=== PATIENT | female | born 1950 | race Caucasian/White ===

== ENCOUNTER → 2017-02-05 | Outpatient (CLI) | payer BC ==
[~2017-02-05] MED LIST: Iopamidol 755 MG/ML 500 ML Multipack Bottle IVPUSH STA
--- NOTE | 2017-02-06 08:43 | CT ---
EXAMINATION: CT chest, abdomen, and pelvis with contrast HISTORY: Malignant neoplasm COMPARISON: 11/22/2016, 04/16/2016 TECHNIQUE: Axial CT images obtained through the chest, abdomen, and pelvis following the administrat ion of 100 mL of Isovue-370 in the right antecubital fossa. FINDINGS: Chest: There is likely a 1 cm nodule within the left thyroid lobe, grossly unchanged. There is a shari cified granuloma within the right apex. There are small subtle reticular to groundglass nodules with in the left upper lobe. There is a new tiny nodule area likely scarring within the left lingula thomas suring 5 x 1 cm. There is a tubular shaped nodule also noted within the left lingula, grossly unchan ged at 1.6 x 3.7 cm. No pleural effusion or pneumothorax. There is a left-sided andrea catheter noted . The heart is normal in size without a pericardial effusion. The thoracic aorta is normal in calibe r. There are at least 2 segmental pulmonary artery noted within the right lower lobe. Abdomen: Tiny hepatic hypodensities are noted. There is a cyst within the spleen. There is also a ri ng-enhancing 1.5 cm area within the spleen possibly heterogeneity and enhancement and appears presen t in the prior CTs. A 2.2 x 1.7 cm right adrenal nodule, stable. There is no bulky retroperitoneal l ymphadenopathy. No abdominal ascites. The kidneys enhance and function symmetrically without evidenc e of obstructive uropathy. The gallbladder and pancreas appear normal. Pelvis: The large and small bowel are normal in caliber without evidence of obstruction. No pericolo pee inflammation or stranding. The appendix appears normal. No bulky pelvic lymphadenopathy or free pelvic fluid. The urinary bladder appears normal. Uterus and ovaries are unremarkable. No suspicious osseous abnormalities identified. IMPRESSION: 1. Stable 1.6 x 3.7 cm nodule within the left upper lobe. 2. Tiny reticular nodules within the left apex, grossly unchanged to slightly less prominent. 3. New 6 x 11 mm nodular area within the left lingula with increased adjacent atelectasis, likely po stradiation changes. 4. Stable right adrenal nodule. 5. No mediastinal or hilar lymphadenopathy. 6. 2 small segmental pulmonary emboli within the right lower lobe.
== END ==
LOC: MW.DI 10:58
PROVIDERS: ATTEND Internal Medicine Hematology & Oncology
DX: C34.92 Malignant neoplasm of unspecified part of left bronchus or lung (principal); R91.8 Other nonspecific abnormal finding of lung field; E27.8 Other specified disorders of adrenal gland; R59.1 Generalized enlarged lymph nodes
CPT/HCPCS: 71260; 74177; Q9967

== ENCOUNTER 2017-04-04 13:12 | Inpatient (IN) | payer BC ==
[2017-04-04] MEDS ORDERED: Sodium Chloride 0.9% 1,000 ML IV SCH (13:30)
[2017-04-04] MEDS ORDERED: Sodium Chloride 0.9% 1,000 ML IV ONE (13:38)
[2017-04-04] MEDS: Pantoprazole 40 MG in Sodium Chloride 0.9% 10 ML IVPUSH SCH (14:33)
--- NOTE | 2017-04-04 15:51 | PCM.HP ---
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 She had blood work drawn yesterday in preparation for today's infusion. BUN/Cr were noted to be elevated 83 and 6.0. She was directly admitted. She reports she has been feeling overall ok the last few days. Her last chemotherapy was 2 weeks ago. She was transitioned to Xarelto from Lovenox beginning of February for PE/DVTs. She has not noticed any black or bloody bowel movements, no hematemesis or coffee ground emesis. She denies chest pain, SOB or palpitations, no fevers at home. She may not be eating or drinking as much as usual, but has been urinating normally. Urine is not bloody and is usually clear in color, not dark. She and family feels she has been at her baseline health recently Todays lab reveals WBC 8.40 hgb 9.9, Hct 31, BUN 79 and Cr 5.9 FeNA 3.43. UA reveals few bacteria, 15-20 WBC, moderate leukocyte esterase. - Related Data Allergies/Adverse Reactions: Allergies Allergy/AdvReac Type Severity Reaction Status Date / Time No Known Allergies Allergy Verified 04/07/16 18:15 Home Medications: Home Meds LORazepam 0.5 mg PO Q6HR PRN 02/01/16 [History] Carvedilol [Carvedilol] 6.25 mg PO BID 10/08/16 [History] Albuterol Sulfate [Proair Respiclick] 2 inh IH Q6H PRN 04/04/17 [History] Benzonatate [Benzonatate] 200 mg PO TID PRN 04/04/17 [History] Levothyroxine Sodium [Levothyroxine Sodium] 75 mcg PO ACBREAKFAST 04/04/17 [ History] Magnesium Oxide 800 mg PO TID 04/04/17 [History] Nivolumab [Opdivo] 240 mg IV Q14D 04/04/17 [History] Omeprazole 20 mg PO ACBREAKFAST 04/04/17 [History] Rivaroxaban [Xarelto] 20 mg PO DAILY@1900 04/04/17 [History] Past Medical History HEENT History: Reports: Impaired Vision Other HEENT History: wears glasses sometimes Cardiovascular History: Reports: Hypertension Other Cardiovascular History: not currently taking medication Respiratory History: Reports: Other (See Below) Other Respiratory History: 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 Gastrointestinal History: Reports: GERD. 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: 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 History: Reports: Fracture Other 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 History: currently has fx left ankle, casted has left side weakness Neurological History: Reports: Vertigo, Other (See Below) Other Neuro History: dizziness Psychiatric History: Reports: None Endocrine/Metabolic History: Reports: Hypothyroidism Hematologic History: Reports: None Other Hematologic History: son states her blood has been slow to clot recently Immunologic History: Reports: None Oncologic (Cancer) History: Reports: Lung Other Oncologic History: lung cancer is metastisized to brain Dermatologic History: Reports: None - Infectious Disease History Infectious Disease History: Reports: Chicken Pox, Shingles - Past Surgical History Head Surgeries/Procedures: Reports: None Oncologic Surgical History: Reports: Other (See Below) Social & Family History - Family History Family Medical History: Noncontributory - Tobacco Use Smoking Status *Q: Current Some Day Smoker Years of Tobacco use: 40 Packs/Tins Daily: 0.2 Used Tobacco, but Quit: Yes Second Hand Smoke Exposure: No - Caffeine Use Caffeine Use: Reports: Coffee - Recreational Drug Use Recreational Drug Use: No - Living Situation & Occupation Living situation: Reports: , with Family H&P Review of Systems - Review of Systems: Review Of Systems: See Below General: Reports: No Symptoms. Denies: Fever, Chills, Malaise, Fatigue HEENT: Reports: No Symptoms. Denies: Headaches, Sinus Congestion, Sore Throat Pulmonary: Reports: Cough (baseline). Denies: Shortness of Breath Cardiovascular: Reports: No Symptoms. Denies: Chest Pain, Palpitations, Edema, Lightheadedness Gastrointestinal: Reports: Nausea (intermittently), Vomiting. Denies: Abdominal Pain, Black Stool, Bloody Stool, Hematemesis Genitourinary: Reports: No Symptoms. Denies: Dysuria, Frequency, Burning, Incontinence, Hematuria Skin: Reports: No Symptoms Neurological: Reports: No Symptoms Hematologic/Lymphatic: Reports: No Symptoms Immunologic: Reports: No Symptoms Exam - Exam Exam: See Below - Vital Signs Vital Signs: Last Vital Signs Temp 97.4 F 04/04/17 13:26 Pulse 62 04/04/17 13:26 Resp 18 04/04/17 13:26 BP 110/62 04/04/17 13:26 Pulse Ox 92 L 04/04/17 13:26 Weight: 70.5 kg - Exam General: Alert, Oriented, Cooperative HEENT: Conjunctiva Clear, Mucosa Moist & [place], Posterior Pharynx Clear Neck: Supple, Trachea Midline, Full Range of Motion. No: Lymphadenopathy Lungs: Clear to Auscultation, Normal Respiratory Effort Cardiovascular: Regular Rate, Regular Rhythm, Normal S1, Normal S2. No: Irregular Rhythm, Tachycardia, Systolic Murmur Abdomen: Normal Bowel Sounds, Soft. No: Distention, Guarding, Rigidity, Tenderness Back Exam: Normal Inspection Extremities: Normal Inspection, Normal Pulses. No: Calf Tenderness, Edema Neurological: Cranial Nerves Intact Neuro Extensive - Mental Status: Alert, Oriented x3, Normal Mood/Affect, Normal Cognition Neuro Extensive - Motor, Sensory, Reflexes: CN II-XII Intact Psychiatric: Alert, Normal Affect, Normal Mood - Patient Data Lab Results Last 24 hrs: Laboratory Results - last 24 hr 04/04/17 04/04/17 04/04/17 Range/Units 14:10 14:10 14:20 WBC (4.0-11.0) K/uL RBC (4.30-5.90) M/uL Hgb (12.0-16.0) g/dL Hct (36.0-46.0) % MCV (80.0-98.0) fL MCH (27.0-32.0) pg MCHC (31.0-37.0) g/dL RDW Std Deviation (28.0-62.0) fl RDW Coeff of Caleb (11.0-15.0) % Plt Count (150-400) K/uL MPV (7.40-12.00) fL Add Manual Diff Neutrophils % (Manual) (48.0-80.0) % Band Neutrophils % % Lymphocytes % (Manual) (16.0-40.0) % Monocytes % (Manual) (0.0-15.0) % Eosinophils % (Manual) (0.0-7.0) % Basophils % (Manual) (0.0-1.5) % Nucleated RBC % /100WBC Absolute Seg Neuts Band Neutrophils # Lymphocytes # (Manual) Monocytes # (Manual) Eosinophils # (Manual) Basophils # (Manual) Nucleated RBCs # K/uL APTT (18.6-31.3) SEC Sodium 140 (136-146) mmol/L Potassium 4.4 (3.5-5.1) mmol/L Chloride 106 (98-110) mmol/L Carbon Dioxide 24 (21-31) mmol/L BUN 79 H (6.0-23.0) mg/dL Creatinine 5.9 H (0.6-1.5) mg/dL Est Cr Clr Drug Dosing 8.38 mL/min Estimated GFR (MDRD) 7.2 ml/min Glucose 98 (60-110) mg/dL Calcium 9.3 (8.8-10.8) mg/dL Urine Color YELLOW Urine Appearance HAZY Urine pH 6.5 (5.0-8.0) Ur Specific Wittmann 1.010 (1.001-1.035) Urine Protein NEGATIVE (NEGATIVE) mg/dL Urine Glucose (UA) NEGATIVE (NEGATIVE) mg/dL Urine Ketones NEGATIVE (NEGATIVE) mg/dL Urine Occult Blood MODERATE (NEGATIVE) Urine Nitrite NEGATIVE (NEGATIVE) Urine Bilirubin NEGATIVE (NEGATIVE) Urine Urobilinogen 0.2 (<2.0) EU/dL Ur Leukocyte Esterase MODERATE (NEGATIVE) Ur Random Creatinine 74.9 mg/dL Ur Random Sodium 61.0 mmol/L 04/04/17 04/04/17 Range/Units 14:20 14:20 WBC 8.40 (4.0-11.0) K/uL RBC 3.43 L (4.30-5.90) M/uL Hgb 9.9 L (12.0-16.0) g/dL Hct 31.5 L (36.0-46.0) % MCV 91.8 (80.0-98.0) fL MCH 28.9 (27.0-32.0) pg MCHC 31.4 (31.0-37.0) g/dL RDW Std Deviation 48.2 (28.0-62.0) fl RDW Coeff of Caleb 14 (11.0-15.0) % Plt Count 382 (150-400) K/uL MPV 8.70 (7.40-12.00) fL Add Manual Diff YES Neutrophils % (Manual) 72 (48.0-80.0) % Band Neutrophils % 3 % Lymphocytes % (Manual) 16 (16.0-40.0) % Monocytes % (Manual) 2 (0.0-15.0) % Eosinophils % (Manual) 6 (0.0-7.0) % Basophils % (Manual) 1 (0.0-1.5) % Nucleated RBC % 0.0 /100WBC Absolute Seg Neuts 6.0 Band Neutrophils # 0.3 Lymphocytes # (Manual) 1.3 Monocytes # (Manual) 0.2 Eosinophils # (Manual) 0.5 Basophils # (Manual) 0 Nucleated RBCs # 0 K/uL APTT 48.1 H (18.6-31.3) SEC Sodium (136-146) mmol/L Potassium (3.5-5.1) mmol/L Chloride (98-110) mmol/L Carbon Dioxide (21-31) mmol/L BUN (6.0-23.0) mg/dL Creatinine (0.6-1.5) mg/dL Est Cr Clr Drug Dosing mL/min Estimated GFR (MDRD) ml/min Glucose (60-110) mg/dL Calcium (8.8-10.8) mg/dL Urine Color Urine Appearance Urine pH (5.0-8.0) Ur Specific [place] (1.001-1.035) Urine Protein (NEGATIVE) mg/dL Urine Glucose (UA) (NEGATIVE) mg/dL Urine Ketones (NEGATIVE) mg/dL Urine Occult Blood (NEGATIVE) Urine Nitrite (NEGATIVE) Urine Bilirubin (NEGATIVE) Urine Urobilinogen (<2.0) EU/dL Ur Leukocyte Esterase (NEGATIVE) Ur Random Creatinine mg/dL Ur Random Sodium mmol/L Result Diagrams: 04/04/17 14:20 04/04/17 14:20 *Q Meaningful Use (ADM) - VTE *Q VTE Criteria *Q: - VTE Risk Assess *Q Each Risk Factor Represents 1 Point: None Total Score 1 Point Risk Factors: 0 Each Risk Factor Represents 2 Points: None Total Score 2 Point Risk Factors: 0 Each Risk Factor Represents 3 Points: History Superficial Venous Thrombosis, DVT or PE, Present Cancer or Chemotherapy Total Score 3 Point Risk Factors: 6 Each Risk Factor Represents 5 Points: None Total Score 5 Point Risk Factors: 0 Venous Thromboembolism Risk Factor Score *Q: 6 - Stroke *Q Stroke Criteria *Q: - AMI *Q AMI Criteria *Q: - Problem List (1) Acute renal injury SNOMED Code(s): 50321005 ICD Code: N17.9 - ACUTE KIDNEY FAILURE, UNSPECIFIED Status: Acute Current Visit: Yes (2) UTI (urinary tract infection) SNOMED Code(s): 73438326 ICD Code: N39.0 - URINARY TRACT INFECTION, SITE NOT SPECIFIED Status: Acute Current Visit: Yes Qualifiers: Urinary tract infection type: acute cystitis Hematuria presence: with hematuria Qualified Code(s): N30.01 - Acute cystitis with hematuria (3) Small cell lung cancer SNOMED Code(s): 264722158 ICD Code: C34.90 - MALIGNANT NEOPLASM OF UNSP PART OF UNSP BRONCHUS OR LUNG Status: Chronic Current Visit: Yes Qualifiers: Laterality: unspecified laterality Qualified Code(s): C34.90 - Malignant neoplasm of unspecified part of unspecified bronchus or lung (4) Hx pulmonary embolism SNOMED Code(s): 326825951 ICD Code: Z86.711 - PERSONAL HISTORY OF PULMONARY EMBOLISM Status: Chronic Current Visit: Yes (5) Hx of deep venous thrombosis SNOMED Code(s): 822581723 ICD Code: Z86.718 - PERSONAL HISTORY OF OTHER VENOUS THROMBOSIS AND EMBOLISM Status: Chronic Current Visit: Yes Problem List Initiated/Reviewed/Updated: Yes Orders Last 24hrs: Active Orders 24 hr Category Date Time Status Patient Status [ADT] Routine ADT 04/04/17 13:26 Active Cardiac Monitoring [RC] Q8H Care 04/04/17 13:26 Active Insert Urinary Catheter [OM.PC] Q24H Care 04/04/17 13:30 Ordered Intake and Output Strict [RC] Q12H Care 04/04/17 13:26 Active Oxygen Therapy [RC] PRN Care 04/04/17 13:26 Active Telemetry Monitoring [Cardiac Monitoring] [RC] . Care 04/04/17 15:10 Active DIRECTED Up With Assistance [RC] ASDIRECTED Care 04/04/17 13:26 Active Urinary Catheter Assessment [RC] ASDIRECTED Care 04/04/17 13:33 Active VTE/DVT Education [RC] PER UNIT ROUTINE Care 04/04/17 13:26 Active Vital Signs [RC] Q4H Care 04/04/17 13:26 Active Regular Diet [DIET] Diet 04/04/17 Dinner Active Retroperitoneal Comp [US] Routine Exams 04/04/17 13:26 Ordered BMP [BASIC METABOLIC PANEL,BMP] [CHEM] DAILY Lab 04/05/17 05:00 Ordered BMP [BASIC METABOLIC PANEL,BMP] [CHEM] DAILY Lab 04/06/17 05:00 Ordered BMP [BASIC METABOLIC PANEL,BMP] [CHEM] DAILY Lab 04/07/17 05:00 Ordered CBC WITH AUTO DIFF [HEME] DAILY Lab 04/05/17 05:00 Ordered CBC WITH AUTO DIFF [HEME] DAILY Lab 04/06/17 05:00 Ordered CBC WITH AUTO DIFF [HEME] DAILY Lab 04/07/17 05:00 Ordered PTT,PARTIAL THROMBOPLSTIN TIME [COAG] Q6H Lab 04/05/17 01:00 Ordered PTT,PARTIAL THROMBOPLSTIN TIME [COAG] Q6H Lab 04/05/17 07:00 Ordered PTT,PARTIAL THROMBOPLSTIN TIME [COAG] Q6H Lab 04/05/17 13:00 Ordered PTT,PARTIAL THROMBOPLSTIN TIME [COAG] Q6H Lab 04/05/17 19:00 Ordered PTT,PARTIAL THROMBOPLSTIN TIME [COAG] Q6H Lab 04/06/17 01:00 Ordered PTT,PARTIAL THROMBOPLSTIN TIME [COAG] Q6H Lab 04/06/17 07:00 Ordered UA W/MICROSCOPIC [URIN] Routine Lab 04/04/17 14:10 Results Heparin Sod,Pork In 0.45% Nacl [Heparin-1/2Ns 25,000 Med 04/04/17 19:00 Active Units/500] 25,000 unit in 500 ml IV TITRATE Heparin Sodium Med 04/05/17 01:00 Active 0 units IVPUSH Q6H PRN Pantoprazole [ProTONIX IV] 40 mg Med 04/04/17 13:30 Active Sodium Chloride 0.9% [Normal Saline] 10 ml IVPUSH DAILY Sodium Chloride 0.9% [Normal Saline] 1,000 ml Med 04/04/17 13:30 Active IV .BOLUS Sodium Chloride 0.9% [Normal Saline] 1,000 ml Med 04/04/17 15:45 Ordered IV ASDIRECTED Resuscitation Status Routine Resus Stat 04/04/17 15:10 Ordered Medication Orders Heparin Sodium (Porcine) (Heparin Sodium) 0 units IVPUSH Q6H PRN PRN Reason: APPT RESULTS Pantoprazole Sodium 40 mg/ (Sodium Chloride) 10 mls @ 300 mls/hr IVPUSH DAILY MARTINEZ Last Admin: 04/04/17 14:33 Dose: 300 mls/hr Sodium Chloride (Normal Saline) 1,000 mls @ 999 mls/hr IV .BOLUS MARTINEZ Heparin Sod,Pork In 0.45% Nacl (Heparin-1/2ns 25,000 Units/500) 25,000 unit in 500 mls @ 25.2 mls/hr IV TITRATE MARTINEZ; 18 UNITS/KG/HR PRN Reason: Protocol Sodium Chloride (Normal Saline) 1,000 mls @ 125 mls/hr IV ASDIRECTED MARTINEZ Assessment/Plan Comment:: This 66 year old female admitted with KASANDRA and UTI 1. KASANDRA: ATN vs exposure to nephrotoxic chemo agent, Opdivo?? FeNA 3.43. Have given 2 L NS bolus on admit, will continue NS 125 overnight, check BMP in am. Monitor strict I/O with indwelling catheter. 2. UTI: UC pending, will place on Rocephin for now. Monitor. 3. HX DVT/PE: Will hold Xarelto due to renal injury. Place on Heparin gtt. Monitor PTTs. 4. 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
[2017-04-04] MEDS ORDERED: Albuterol 8 GM Inhaler INH PRN (16:05)
[2017-04-04] MEDS ORDERED: Benzonatate 100 MG Cap PO PRN (16:05)
[2017-04-04] MEDS ORDERED: LORazepam 0.5 MG Tab PO PRN (16:05)
[2017-04-04] MEDS ORDERED: Albuterol/Ipratropium 3.0-0.5 MG/3 ML Neb Soln NEB PRN (16:08)
[2017-04-04] MEDS: cefTRIAXone 1 GM in Premix Bag 1 BAG IV SCH (16:15)
--- NOTE | 2017-04-04 17:00 | US ---
EXAMINATION: Renal ultrasound HISTORY: Acute renal injury COMPARISON: CT dated 02/05/[address] dated 04/16/2016 TECHNIQUE: Grayscale and color Doppler images obtained of the kidneys and bladder. FINDINGS: The right kidney measures at least 11.6 cm and the left kidney measures at least 12 cm sarahy e-to-pole without evidence of hydronephrosis. The renal cortical echotexture appears increased bilat erally. There is a mildly complex 1.2 cm cyst within the right kidney which appears stable on compar ananth CTs to at least March 2016. Normal color Doppler flow bilaterally. Incidental gallstones are not ed within the gallbladder. There is a Damon catheter within the bladder IMPRESSION: 1. Increased renal cortical echotexture, correlate for a medical renal disease. 2. 1.2 cm mildly complex cyst within the right kidney. Stable in comparison to previous CTs, conside r 6 month one year follow-up. 3. Cholelithiasis.
[2017-04-04] MEDS: Sodium Chloride 0.9% 1,000 ML IV SCH (17:24)
[2017-04-04] MEDS: Heparin Sod,Pork In 0.45% Nacl 25,000 UNIT/500 ML IV.SOLN IV SCH (18:49)
[2017-04-04] MEDS ORDERED: Heparin Sod,Pork In 0.45% Nacl 25,000 UNIT/500 ML IV.SOLN IV SCH (19:00)
[2017-04-05] MEDS ORDERED: Heparin Sodium 5,000 Units/ML Vial IVPUSH PRN (01:00)
[2017-04-05] MEDS: Sodium Chloride 0.9% 1,000 ML IV SCH ×4 (01:48→23:52)
[2017-04-05] MEDS: Levothyroxine 75 MCG Tab PO SCH (06:54)
--- NOTE | 2017-04-05 08:16 | PCM.PN ---
- General Info Date of Service: 04/05/17 Admission Dx/Problem (Free Text): Admission Diagnosis/Problem Admission Diagnosis/Problem Acute renal failure Subjective Update: Feeling good today, no complaints. Still having issues will swallowing and then vomiting intermittently, mainly with more solid foods. No chest pain or SOB, no palpitations. Functional Status: Reports: pain controlled, tolerating diet, ambulating - Review of Systems General: Reports: No Symptoms HEENT: Reports: other (trouble keeping solid foods down, "its like it reaches a point and then comes back up"). Denies: sore throat Pulmonary: Denies: shortness of breath Cardiovascular: Reports: No Symptoms. Denies: Chest Pain, Edema Gastrointestinal: Reports: No symptoms. Denies: Abdominal pain, Nausea, Vomiting Genitourinary: Reports: no symptoms 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: Reports: no symptoms Neurological: Reports: No Symptoms Psychiatric: Reports: no symptoms - Patient Data Vitals - most recent: Last Vital Signs Temp 97.6 F 04/05/17 04:00 Pulse 66 04/05/17 04:00 Resp 16 04/05/17 04:00 BP 90/56 L 04/05/17 04:00 Pulse Ox 95 04/05/17 04:00 Weight - most recent: 70.5 kg I&O - last 24 hours: Intake & Output 04/04/17 04/05/17 04/05/17 22:59 06:59 14:59 Intake Total 2528 1450 Output Total 250 1750 Balance 2278 -300 Lab Results last 24 hrs: Laboratory Results - last 24 hr 04/04/17 04/04/17 04/04/17 Range/Units 14:10 14:10 14:20 WBC (4.0-11.0) K/uL RBC (4.30-5.90) M/uL Hgb (12.0-16.0) g/dL Hct (36.0-46.0) % MCV (80.0-98.0) fL MCH (27.0-32.0) pg MCHC (31.0-37.0) g/dL RDW Std Deviation (28.0-62.0) fl RDW Coeff of Caleb (11.0-15.0) % Plt Count (150-400) K/uL MPV (7.40-12.00) fL Add Manual Diff Neutrophils % (Manual) (48.0-80.0) % Band Neutrophils % % Lymphocytes % (Manual) (16.0-40.0) % Monocytes % (Manual) (0.0-15.0) % Eosinophils % (Manual) (0.0-7.0) % Basophils % (Manual) (0.0-1.5) % Nucleated RBC % /100WBC Absolute Seg Neuts Band Neutrophils # Lymphocytes # (Manual) Monocytes # (Manual) Eosinophils # (Manual) Basophils # (Manual) Nucleated RBCs # K/uL APTT (18.6-31.3) SEC Sodium 140 (136-146) mmol/L Potassium 4.4 (3.5-5.1) mmol/L Chloride 106 (98-110) mmol/L Carbon Dioxide 24 (21-31) mmol/L BUN 79 H (6.0-23.0) mg/dL Creatinine 5.9 H (0.6-1.5) mg/dL Est Cr Clr Drug Dosing 8.38 mL/min Estimated GFR (MDRD) 7.2 ml/min Glucose 98 (60-110) mg/dL Calcium 9.3 (8.8-10.8) mg/dL Urine Color YELLOW Urine Appearance HAZY Urine pH 6.5 (5.0-8.0) Ur Specific [place] 1.010 (1.001-1.035) Urine Protein NEGATIVE (NEGATIVE) mg/dL Urine Glucose (UA) NEGATIVE (NEGATIVE) mg/dL Urine Ketones NEGATIVE (NEGATIVE) mg/dL Urine Occult Blood MODERATE (NEGATIVE) Urine Nitrite NEGATIVE (NEGATIVE) Urine Bilirubin NEGATIVE (NEGATIVE) Urine Urobilinogen 0.2 (<2.0) EU/dL Ur Leukocyte Esterase MODERATE (NEGATIVE) Urine RBC 2-4 (0-2/HPF) Urine WBC 15-20 (0-5/HPF) Ur Epithelial Cells FEW (NONE-FEW) Urine Bacteria FEW (NEGATIVE) Ur Random Creatinine 74.9 mg/dL Ur Random Sodium 61.0 mmol/L 04/04/17 04/04/17 04/05/17 Range/Units 14:20 14:20 00:50 WBC 8.40 (4.0-11.0) K/uL RBC 3.43 L (4.30-5.90) M/uL Hgb 9.9 L (12.0-16.0) g/dL Hct 31.5 L (36.0-46.0) % MCV 91.8 (80.0-98.0) fL MCH 28.9 (27.0-32.0) pg MCHC 31.4 (31.0-37.0) g/dL RDW Std Deviation 48.2 (28.0-62.0) fl RDW Coeff of Caleb 14 (11.0-15.0) % Plt Count 382 (150-400) K/uL MPV 8.70 (7.40-12.00) fL Add Manual Diff YES Neutrophils % (Manual) 72 (48.0-80.0) % Band Neutrophils % 3 % Lymphocytes % (Manual) 16 (16.0-40.0) % Monocytes % (Manual) 2 (0.0-15.0) % Eosinophils % (Manual) 6 (0.0-7.0) % Basophils % (Manual) 1 (0.0-1.5) % Nucleated RBC % 0.0 /100WBC Absolute Seg Neuts 6.0 Band Neutrophils # 0.3 Lymphocytes # (Manual) 1.3 Monocytes # (Manual) 0.2 Eosinophils # (Manual) 0.5 Basophils # (Manual) 0 Nucleated RBCs # 0 K/uL APTT 48.1 H 105.9 H (18.6-31.3) SEC Sodium (136-146) mmol/L Potassium (3.5-5.1) mmol/L Chloride (98-110) mmol/L Carbon Dioxide (21-31) mmol/L BUN (6.0-23.0) mg/dL Creatinine (0.6-1.5) mg/dL Est Cr Clr Drug Dosing mL/min Estimated GFR (MDRD) ml/min Glucose (60-110) mg/dL Calcium (8.8-10.8) mg/dL Urine Color Urine Appearance Urine pH (5.0-8.0) Ur Specific [place] (1.001-1.035) Urine Protein (NEGATIVE) mg/dL Urine Glucose (UA) (NEGATIVE) mg/dL Urine Ketones (NEGATIVE) mg/dL Urine Occult Blood (NEGATIVE) Urine Nitrite (NEGATIVE) Urine Bilirubin (NEGATIVE) Urine Urobilinogen (<2.0) EU/dL Ur Leukocyte Esterase (NEGATIVE) Urine RBC (0-2/HPF) Urine WBC (0-5/HPF) Ur Epithelial Cells (NONE-FEW) Urine Bacteria (NEGATIVE) Ur Random Creatinine mg/dL Ur Random Sodium mmol/L 04/05/17 04/05/17 Range/Units 07:18 07:18 WBC 5.69 (4.0-11.0) K/uL RBC 2.99 L (4.30-5.90) M/uL Hgb 8.7 L (12.0-16.0) g/dL Hct 27.5 L (36.0-46.0) % MCV 92.0 (80.0-98.0) fL MCH 29.1 (27.0-32.0) pg MCHC 31.6 (31.0-37.0) g/dL RDW Std Deviation 47.7 (28.0-62.0) fl RDW Coeff of Caleb 14 (11.0-15.0) % Plt Count 278 (150-400) K/uL MPV 8.30 (7.40-12.00) fL Add Manual Diff YES Neutrophils % (Manual) 62 (48.0-80.0) % Band Neutrophils % 3 % Lymphocytes % (Manual) 14 L (16.0-40.0) % Monocytes % (Manual) 13 (0.0-15.0) % Eosinophils % (Manual) 8 H (0.0-7.0) % Basophils % (Manual) (0.0-1.5) % Nucleated RBC % 0.0 /100WBC Absolute Seg Neuts 3.5 Band Neutrophils # 0.2 Lymphocytes # (Manual) 0.8 Monocytes # (Manual) 0.7 Eosinophils # (Manual) 0.5 Basophils # (Manual) Nucleated RBCs # 0 K/uL APTT 130.5 H (18.6-31.3) SEC Sodium (136-146) mmol/L Potassium (3.5-5.1) mmol/L Chloride (98-110) mmol/L Carbon Dioxide (21-31) mmol/L BUN (6.0-23.0) mg/dL Creatinine (0.6-1.5) mg/dL Est Cr Clr Drug Dosing mL/min Estimated GFR (MDRD) ml/min Glucose (60-110) mg/dL Calcium (8.8-10.8) mg/dL Urine Color Urine Appearance Urine pH (5.0-8.0) Ur Specific [place] (1.001-1.035) Urine Protein (NEGATIVE) mg/dL Urine Glucose (UA) (NEGATIVE) mg/dL Urine Ketones (NEGATIVE) mg/dL Urine Occult Blood (NEGATIVE) Urine Nitrite (NEGATIVE) Urine Bilirubin (NEGATIVE) Urine Urobilinogen (<2.0) EU/dL Ur Leukocyte Esterase (NEGATIVE) Urine RBC (0-2/HPF) Urine WBC (0-5/HPF) Ur Epithelial Cells (NONE-FEW) Urine Bacteria (NEGATIVE) Ur Random Creatinine mg/dL Ur Random Sodium mmol/L Med Orders - Current: Current Medications Albuterol (Ventolin Hfa) 8 gm INH Q6H PRN PRN Reason: Shortness of Breath Albuterol/Ipratropium (Duoneb 3.0-0.5 Mg/3 Ml) 3 ml NEB Q4HRRT PRN PRN Reason: SOB/wheezing Benzonatate (Tessalon Perles) 200 mg PO TID PRN PRN Reason: Cough Heparin Sodium (Porcine) (Heparin Sodium) 0 units IVPUSH Q6H PRN PRN Reason: APPT RESULTS Pantoprazole Sodium 40 mg/ (Sodium Chloride) 10 mls @ 300 mls/hr IVPUSH DAILY MARTINEZ Last Admin: 04/04/17 14:33 Dose: 300 mls/hr Sodium Chloride (Normal Saline) 1,000 mls @ 999 mls/hr IV .BOLUS [facility]INEZ Last Admin: 04/04/17 15:54 Dose: 999 mls/hr Heparin Sod,Pork In 0.45% Nacl (Heparin-1/2ns 25,000 Units/500) 25,000 unit in 500 mls @ 25.2 mls/hr IV TITRATE MARTINEZ; 18 UNITS/KG/HR PRN Reason: Protocol Last Titration: 04/05/17 02:20 Dose: 15 units/kg/hr, 21 mls/hr Sodium Chloride (Normal Saline) 1,000 mls @ 125 mls/hr IV ASDIRECTED [facility]INEZ Last Admin: 04/05/17 01:48 Dose: 125 mls/hr Ceftriaxone Sodium/Dextrose 1 (gm/ Premix) 50 mls @ 100 mls/hr IV Q24H [facility] Last Admin: 04/04/17 16:15 Dose: 100 mls/hr Levothyroxine Sodium (Levothyroxine) 75 mcg PO ACBREAKFAST [facility] Last Admin: 04/05/17 06:54 Dose: 75 mcg Lorazepam (Ativan) 0.5 mg PO Q6HR PRN PRN Reason: Anxiety Discontinued Medications Sodium Chloride (Normal Saline) 1,000 mls @ 999 mls/hr IV .Bolus ONE Stop: 04/04/17 14:38 Last Admin: 04/04/17 13:46 Dose: 999 mls/hr - Exam Quality Assessment: urine catheter, DVT prophylaxis General: alert, oriented, cooperative, no acute distress Neck: supple Lungs: Clear to auscultation, Normal respiratory effort Cardiovascular: Regular Rate, Regular Rhythm Abdomen: bowel sounds present, soft, no tenderness, no distension Extremities: no edema, normal pulses Neurological: no new focal deficit Psy/Mental Status: alert, normal affect, normal mood - Problem List & Annotations (1) Acute renal injury SNOMED Code(s): 01763315 Code(s): N17.9 - ACUTE KIDNEY FAILURE, UNSPECIFIED Status: Acute Current Visit: Yes (2) UTI (urinary tract infection) SNOMED Code(s): 27597224 Code(s): N39.0 - URINARY TRACT INFECTION, SITE NOT SPECIFIED Status: Acute Current Visit: Yes Qualifiers: Urinary tract infection type: acute cystitis Hematuria presence: with hematuria Qualified Code(s): N30.01 - Acute cystitis with hematuria (3) Small cell lung cancer SNOMED Code(s): 383440430 Code(s): C34.90 - MALIGNANT NEOPLASM OF UNSP PART OF UNSP BRONCHUS OR LUNG Status: Chronic Current Visit: Yes Qualifiers: Laterality: unspecified laterality Qualified Code(s): C34.90 - Malignant neoplasm of unspecified part of unspecified bronchus or lung (4) Hx pulmonary embolism SNOMED Code(s): 686603570 Code(s): Z86.711 - PERSONAL HISTORY OF PULMONARY EMBOLISM Status: Chronic Current Visit: Yes (5) Hx of deep venous thrombosis SNOMED Code(s): 328111027 Code(s): Z86.718 - PERSONAL HISTORY OF OTHER VENOUS THROMBOSIS AND EMBOLISM Status: Chronic Current Visit: Yes - Problem List Review Problem List Initiated/Reviewed/Updated: Yes - My Orders Last 24 Hours: My Active Orders 04/04/17 13:26 Patient Status [ADT] Routine Cardiac Monitoring [RC] Q8H Intake and Output Strict [RC] Q12H Oxygen Therapy [RC] PRN Up With Assistance [RC] ASDIRECTED VTE/DVT Education [RC] PER UNIT ROUTINE Vital Signs [RC] Q4H 04/04/17 13:30 Insert Urinary Catheter [OM.PC] Q24H Pantoprazole [ProTONIX IV] 40 mg Sodium Chloride 0.9% [Normal Saline] 10 ml IVPUSH DAILY Sodium Chloride 0.9% [Normal Saline] 1,000 ml IV .BOLUS 04/04/17 13:33 Urinary Catheter Assessment [RC] ASDIRECTED 04/04/17 14:10 CULTURE URINE [RM] Routine 04/04/17 15:10 Telemetry Monitoring [Cardiac Monitoring] [RC] . DIRECTED Resuscitation Status Routine 04/04/17 15:45 Sodium Chloride 0.9% [Normal Saline] 1,000 ml IV ASDIRECTED 04/04/17 16:00 cefTRIAXone [Rocephin in Dextrose,Iso-Osm 1 GM/50 ML] 1 gm Premix Bag 1 bag IV Q24H 04/04/17 16:05 Albuterol [Ventolin HFA] 8 gm INH Q6H PRN Benzonatate [Tessalon Perles] 200 mg PO TID PRN LORazepam [Ativan] 0.5 mg PO Q6HR PRN 04/04/17 16:08 RT Aerosol Therapy [RC] ASDIRECTED Albuterol/Ipratropium [DuoNeb 3.0-0.5 MG/3 ML] 3 ml NEB Q4HRRT PRN 04/04/17 19:00 Heparin Sod,P[place] In 0.45% Nacl [Heparin-1/2Ns 25,000 Units/500] 25,000 unit in 500 ml IV TITRATE 04/04/17 Dinner Regular Diet [DIET] 04/05/17 01:00 Heparin Sodium 0 units IVPUSH Q6H PRN 04/05/17 07:18 BMP [BASIC METABOLIC PANEL,BMP] [CHEM] DAILY 04/05/17 07:30 Levothyroxine 75 mcg PO ACBREAKFAST 04/05/17 13:00 PTT,PARTIAL THROMBOPLSTIN TIME [COAG] Q6H 04/05/17 19:00 PTT,PARTIAL THROMBOPLSTIN TIME [COAG] Q6H 04/06/17 01:00 PTT,PARTIAL THROMBOPLSTIN TIME [COAG] Q6H 04/06/17 05:00 BMP [BASIC METABOLIC PANEL,BMP] [CHEM] DAILY CBC WITH AUTO DIFF [HEME] DAILY 04/06/17 07:00 PTT,PARTIAL THROMBOPLSTIN TIME [COAG] Q6H 04/07/17 05:00 BMP [BASIC METABOLIC PANEL,BMP] [CHEM] DAILY CBC WITH AUTO DIFF [HEME] DAILY - Plan Plan:: This 66 year old female admitted with KASANDRA and UTI 1. KASANDRA: ATN vs exposure to nephrotoxic chemo agent, Opdivo, paired with Xarelto.BUN CR improving today Continue NS 125 overnight, check BMP in am. Monitor strict I/O with indwelling catheter. 2. UTI: UC pending, will place on Rocephin for now. Monitor. 3. HX DVT/PE: Will hold Xarelto due to renal injury. Place on Heparin gtt. Monitor PTTs. 4. 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 5. Dysphagia: Vomiting up solid foods intermittently. Dr. Reardon recommended EGD, will arrange outpatient appointment with General Surgery. VTE: Heparin gtt. Dispo: 2-3 days.
[2017-04-05] MEDS: Pantoprazole 40 MG in Sodium Chloride 0.9% 10 ML IVPUSH SCH (09:30)
[2017-04-05] MEDS: cefTRIAXone 1 GM in Premix Bag 1 BAG IV SCH (15:15)
[2017-04-05] MEDS: Heparin Sod,Pork In 0.45% Nacl 25,000 UNIT/500 ML IV.SOLN IV SCH (19:02)
[2017-04-06] MEDS: Levothyroxine 75 MCG Tab PO SCH (06:53)
[2017-04-06] MEDS: Sodium Chloride 0.9% 1,000 ML IV SCH ×2 (08:20→16:14)
[2017-04-06] MEDS: Pantoprazole 40 MG in Sodium Chloride 0.9% 10 ML IVPUSH SCH (09:03)
[2017-04-06] MEDS: cefTRIAXone 1 GM in Premix Bag 1 BAG IV SCH (15:40)
--- NOTE | 2017-04-06 16:02 | PCM.PN ---
- General Info Date of Service: 04/06/17 Admission Dx/Problem (Free Text): Admission Diagnosis/Problem Admission Diagnosis/Problem Acute renal failure Subjective Update: Feeling good today, no complaints. Still having issues will swallowing and then vomiting intermittently, mainly with more solid foods. No chest pain or SOB, no palpitations. Functional Status: Reports: pain controlled, tolerating diet - Review of Systems General: Reports: Weakness, Fatigue HEENT: Reports: no symptoms Pulmonary: Reports: shortness of breath Cardiovascular: Reports: No Symptoms Gastrointestinal: Reports: No symptoms Genitourinary: Reports: no symptoms 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: Reports: no symptoms Skin: Reports: no symptoms Neurological: Reports: No Symptoms Psychiatric: Reports: no symptoms - Patient Data Vitals - most recent: Last Vital Signs Temp 36.6 C 04/06/17 12:00 Pulse 63 04/06/17 12:00 Resp 20 04/06/17 12:00 BP 138/80 04/06/17 12:00 Pulse Ox 95 04/06/17 13:00 Weight - most recent: 70.5 kg I&O - last 24 hours: Intake & Output 04/06/17 04/06/17 04/06/17 06:59 14:59 22:59 Intake Total 1477 1863 779 Output Total 2181 3915 1050 Balance -708 739 -924 Lab Results last 24 hrs: Laboratory Results - last 24 hr 04/05/17 04/06/17 04/06/17 Range/Units 19:05 01:00 06:47 WBC (4.0-11.0) K/uL RBC (4.30-5.90) M/uL Hgb (12.0-16.0) g/dL Hct (36.0-46.0) % MCV (80.0-98.0) fL MCH (27.0-32.0) pg MCHC (31.0-37.0) g/dL RDW Std Deviation (28.0-62.0) fl RDW Coeff of Caleb (11.0-15.0) % Plt Count (150-400) K/uL MPV (7.40-12.00) fL Neut % (Auto) (48.0-80.0) % Lymph % (Auto) (16.0-40.0) % [place] % (Auto) (0.0-15.0) % Eos % (Auto) (0.0-7.0) % Baso % (Auto) (0.0-1.5) % Neut # (Auto) (1.4-5.7) K/uL Lymph # (Auto) (0.6-2.4) K/uL [place] # (Auto) (0.0-0.8) K/uL Eos # (Auto) (0.0-0.7) K/uL Baso # (Auto) (0.0-0.1) K/uL Nucleated RBC % /100WBC Nucleated RBCs # K/uL APTT 72.3 H 54.4 H 48.0 H (18.6-31.3) SEC Sodium (136-146) mmol/L Potassium (3.5-5.1) mmol/L Chloride (98-110) mmol/L Carbon Dioxide (21-31) mmol/L BUN (6.0-23.0) mg/dL Creatinine (0.6-1.5) mg/dL Est Cr Clr Drug Dosing mL/min Estimated GFR (MDRD) ml/min Glucose (60-110) mg/dL Calcium (8.8-10.8) mg/dL 04/06/17 04/06/17 04/06/17 Range/Units 06:47 06:47 13:16 WBC 4.25 (4.0-11.0) K/uL RBC 2.79 L (4.30-5.90) M/uL Hgb 8.2 L (12.0-16.0) g/dL Hct 25.9 L (36.0-46.0) % MCV 92.8 (80.0-98.0) fL MCH 29.4 (27.0-32.0) pg MCHC 31.7 (31.0-37.0) g/dL RDW Std Deviation 49.4 (28.0-62.0) fl RDW Coeff of Caleb 14 (11.0-15.0) % Plt Count 258 (150-400) K/uL MPV 8.30 (7.40-12.00) fL Neut % (Auto) 59.4 (48.0-80.0) % Lymph % (Auto) 17.9 (16.0-40.0) % [place] % (Auto) 13.6 (0.0-15.0) % Eos % (Auto) 8.2 H (0.0-7.0) % Baso % (Auto) 0.9 (0.0-1.5) % Neut # (Auto) 2.5 (1.4-5.7) K/uL Lymph # (Auto) 0.8 (0.6-2.4) K/uL [place] # (Auto) 0.6 (0.0-0.8) K/uL Eos # (Auto) 0.4 (0.0-0.7) K/uL Baso # (Auto) 0.0 (0.0-0.1) K/uL Nucleated RBC % 0.0 /100WBC Nucleated RBCs # 0 K/uL APTT 70.2 H (18.6-31.3) SEC Sodium 145 (136-146) mmol/L Potassium 3.4 L (3.5-5.1) mmol/L Chloride 118 H (98-110) mmol/L Carbon Dioxide 18 L (21-31) mmol/L BUN 45 H (6.0-23.0) mg/dL Creatinine 4.0 H (0.6-1.5) mg/dL Est Cr Clr Drug Dosing 12.36 mL/min Estimated GFR (MDRD) 11.3 ml/min Glucose 82 (60-110) mg/dL Calcium 8.8 (8.8-10.8) mg/dL Heriberto Results last 24 hrs: Microbiology 04/04/17 14:10 Urine Culture - Final Urine, Damon Cath ([place]) No Growth Med Orders - Current: Current Medications Albuterol (Ventolin Hfa) 8 gm INH Q6H PRN PRN Reason: Shortness of Breath Albuterol/Ipratropium (Duoneb 3.0-0.5 Mg/3 Ml) 3 ml NEB Q4HRRT PRN PRN Reason: SOB/wheezing Benzonatate (Tessalon Perles) 200 mg PO TID PRN PRN Reason: Cough Heparin Sodium (Porcine) (Heparin Sodium) 0 units IVPUSH Q6H PRN PRN Reason: APPT RESULTS Pantoprazole Sodium 40 mg/ (Sodium Chloride) 10 mls @ 300 mls/hr IVPUSH DAILY [facility]INEZ Last Admin: 04/06/17 09:03 Dose: 300 mls/hr Sodium Chloride (Normal Saline) 1,000 mls @ 999 mls/hr IV .BOLUS [facility] Last Admin: 04/04/17 15:54 Dose: 999 mls/hr Heparin Sod,Pork In 0.45% Nacl (Heparin-1/2ns 25,000 Units/500) 25,000 unit in 500 mls @ 25.2 mls/hr IV TITRATE MARTINEZ; 18 UNITS/KG/HR PRN Reason: Protocol Last Titration: 04/06/17 07:17 Dose: 9 units/kg/hr, 12.6 mls/hr Sodium Chloride (Normal Saline) 1,000 mls @ 125 mls/hr IV ASDIRECTED MARTINEZ Last Admin: 04/06/17 08:20 Dose: 125 mls/hr Ceftriaxone Sodium/Dextrose 1 (gm/ Premix) 50 mls @ 100 mls/hr IV Q24H [facility] Last Admin: 04/06/17 15:40 Dose: 100 mls/hr Levothyroxine Sodium (Levothyroxine) 75 mcg PO ACBREAKFAST [facility] Last Admin: 04/06/17 06:53 Dose: 75 mcg Lorazepam (Ativan) 0.5 mg PO Q6HR PRN PRN Reason: Anxiety Discontinued Medications Sodium Chloride (Normal Saline) 1,000 mls @ 999 mls/hr IV .Bolus ONE Stop: 04/04/17 14:38 Last Admin: 04/04/17 13:46 Dose: 999 mls/hr - Exam Quality Assessment: supplemental oxygen, urine catheter General: alert, oriented, cooperative HEENT: Pupils equal, Pupils reactive Neck: supple, trachea midline Lungs: Decreased breath sounds, Rales Cardiovascular: Regular Rate, Regular Rhythm Abdomen: bowel sounds present, soft Back Exam: Decreased Range of Motion Extremities: no edema Skin: warm, dry, intact Neurological: no new focal deficit Psy/Mental Status: alert, normal affect - Problem List & Annotations (1) Acute renal injury SNOMED Code(s): 39669638 Code(s): N17.9 - ACUTE KIDNEY FAILURE, UNSPECIFIED Status: Chronic Priority: High Current Visit: Yes Annotation/Comment:: Likely acute on chronic (2) Hx pulmonary embolism SNOMED Code(s): 127208250 Code(s): Z86.711 - PERSONAL HISTORY OF PULMONARY EMBOLISM Status: Acute Priority: High Current Visit: Yes (3) Small cell lung cancer SNOMED Code(s): 088588359 Code(s): C34.90 - MALIGNANT NEOPLASM OF UNSP PART OF UNSP BRONCHUS OR LUNG Status: Chronic Priority: High Current Visit: Yes Qualifiers: Laterality: unspecified laterality Qualified Code(s): C34.90 - Malignant neoplasm of unspecified part of unspecified bronchus or lung (4) Anemia due to chemotherapy Status: Chronic Priority: Medium Current Visit: Yes - Problem List Review Problem List Initiated/Reviewed/Updated: Yes - My Orders Last 24 Hours: My Active Orders 04/06/17 19:00 PTT,PARTIAL THROMBOPLSTIN TIME [COAG] Q6H - Plan Plan:: This 66 year old female admitted with KASANDRA and UTI 1. KASANDRA: ATN vs exposure to nephrotoxic chemo agent, Opdivo, paired with Xarelto.BUN CR improving today Continue NS 125 overnight, check BMP in am. Monitor strict I/O with indwelling catheter. 2. UTI: UC pending, will place on Rocephin for now. Monitor. 3. HX DVT/PE: Will hold Xarelto due to renal injury. Place on Heparin gtt. Monitor PTTs. 4. 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 5. Dysphagia: Vomiting up solid foods intermittently. Dr. Reardon recommended EGD, will arrange outpatient appointment with General Surgery. VTE: Heparin gtt. Dispo: 2-3 days. April 06, 2017: The patient is a 66-year-old lady who was admitted directly from the oncology center for renal failure. Patient has a past medical history of stage IV metastatic small cell lung cancer and has been undergoing chemotherapy. The patient also had been diagnosed with a pulmonary emboli and DVT. She is on Xarelto. This was discontinued and the patient was transitioned to heparin secondary to renal failure. The patient's INR because of the Xarelto was unreliable. The APTT should be continued to be monitored. Overall the patient's creatinine from April 04, 2017 to April 06, 2017 has improved from 5.9 mg/ dL to 4.0 mg/dL. Because of the patient's history of cancer, chemotherapy and because of her anemia I suspect that this is likely acute on chronic rather than acute renal failure. Regardless, the patient will continue to be hydrated and her creatinine trended. The patient will be continued on her medications as currently prescribed.
[2017-04-06] MEDS: Polyethylene Glycol 3350 Powder 17 GM Packet PO PRN ×2 (16:31→20:40)
[2017-04-06] MEDS: Heparin Sod,Pork In 0.45% Nacl 25,000 UNIT/500 ML IV.SOLN IV SCH (18:07)
[2017-04-07] MEDS: Sodium Chloride 0.9% 1,000 ML IV SCH ×4 (00:36→23:53)
[2017-04-07] MEDS: Levothyroxine 75 MCG Tab PO SCH (06:43)
[2017-04-07] MEDS: Pantoprazole 40 MG in Sodium Chloride 0.9% 10 ML IVPUSH SCH (08:04)
[2017-04-07] MEDS: cefTRIAXone 1 GM in Premix Bag 1 BAG IV SCH (15:16)
--- NOTE | 2017-04-07 15:48 | PCM.PN ---
- General Info Date of Service: 04/07/17 Admission Dx/Problem (Free Text): Admission Diagnosis/Problem Admission Diagnosis/Problem Acute renal failure Subjective Update: Feeling good today, no complaints. Still having issues will swallowing and then vomiting intermittently, mainly with more solid foods. No chest pain or SOB, no palpitations. Functional Status: Reports: pain controlled, tolerating diet - Review of Systems General: Reports: Weakness, Fatigue HEENT: Reports: no symptoms Pulmonary: Reports: no symptoms Cardiovascular: Reports: No Symptoms Gastrointestinal: Reports: No symptoms Genitourinary: Reports: no symptoms 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: Reports: no symptoms Skin: Reports: no symptoms Neurological: Reports: No Symptoms Psychiatric: Reports: no symptoms - Patient Data Vitals - most recent: Last Vital Signs Temp 36.3 C 04/07/17 12:00 Pulse 60 04/07/17 12:00 Resp 20 04/07/17 12:00 BP 115/64 04/07/17 12:00 Pulse Ox 94 L 04/07/17 13:00 Weight - most recent: 70.5 kg I&O - last 24 hours: Intake & Output 04/07/17 04/07/17 04/07/17 06:59 14:59 22:59 Intake Total 1200 1938 1259 Output Total 2400 1500 800 Balance -1200 438 459 Lab Results last 24 hrs: Laboratory Results - last 24 hr 04/06/17 04/07/17 04/07/17 Range/Units 18:53 00:34 07:06 WBC 4.74 (4.0-11.0) K/uL RBC 2.99 L (4.30-5.90) M/uL Hgb 8.8 L (12.0-16.0) g/dL Hct 27.5 L (36.0-46.0) % MCV 92.0 (80.0-98.0) fL MCH 29.4 (27.0-32.0) pg MCHC 32.0 (31.0-37.0) g/dL RDW Std Deviation 49.2 (28.0-62.0) fl RDW Coeff of Caleb 15 (11.0-15.0) % Plt Count 267 (150-400) K/uL MPV 8.60 (7.40-12.00) fL Neut % (Auto) 55.4 (48.0-80.0) % Lymph % (Auto) 19.6 (16.0-40.0) % [place] % (Auto) 12.2 (0.0-15.0) % Eos % (Auto) 12.2 H (0.0-7.0) % Baso % (Auto) 0.6 (0.0-1.5) % Neut # (Auto) 2.6 (1.4-5.7) K/uL Lymph # (Auto) 0.9 (0.6-2.4) K/uL [facility] # (Auto) 0.6 (0.0-0.8) K/uL Eos # (Auto) 0.6 (0.0-0.7) K/uL Baso # (Auto) 0.0 (0.0-0.1) K/uL Nucleated RBC % 0.0 /100WBC Nucleated RBCs # 0 K/uL APTT 101.1 H 87.1 H (18.6-31.3) SEC Sodium (136-146) mmol/L Potassium (3.5-5.1) mmol/L Chloride (98-110) mmol/L Carbon Dioxide (21-31) mmol/L BUN (6.0-23.0) mg/dL Creatinine (0.6-1.5) mg/dL Est Cr Clr Drug Dosing mL/min Estimated GFR (MDRD) ml/min Glucose (60-110) mg/dL Calcium (8.8-10.8) mg/dL Magnesium (1.5-2.3) mEq/L 04/07/17 04/07/17 04/07/17 Range/Units 07:06 07:06 07:06 WBC (4.0-11.0) K/uL RBC (4.30-5.90) M/uL Hgb (12.0-16.0) g/dL Hct (36.0-46.0) % MCV (80.0-98.0) fL MCH (27.0-32.0) pg MCHC (31.0-37.0) g/dL RDW Std Deviation (28.0-62.0) fl RDW Coeff of Caleb (11.0-15.0) % Plt Count (150-400) K/uL MPV (7.40-12.00) fL Neut % (Auto) (48.0-80.0) % Lymph % (Auto) (16.0-40.0) % [facility] % (Auto) (0.0-15.0) % Eos % (Auto) (0.0-7.0) % Baso % (Auto) (0.0-1.5) % Neut # (Auto) (1.4-5.7) K/uL Lymph # (Auto) (0.6-2.4) K/uL [facility] # (Auto) (0.0-0.8) K/uL Eos # (Auto) (0.0-0.7) K/uL Baso # (Auto) (0.0-0.1) K/uL Nucleated RBC % /100WBC Nucleated RBCs # K/uL APTT 52.7 H (18.6-31.3) SEC Sodium 146 (136-146) mmol/L Potassium 3.3 L (3.5-5.1) mmol/L Chloride 118 H (98-110) mmol/L Carbon Dioxide 20 L (21-31) mmol/L BUN 33 H (6.0-23.0) mg/dL Creatinine 2.9 H (0.6-1.5) mg/dL Est Cr Clr Drug Dosing 17.05 mL/min Estimated GFR (MDRD) 16.3 ml/min Glucose 82 (60-110) mg/dL Calcium 8.5 L (8.8-10.8) mg/dL Magnesium 1.6 (1.5-2.3) mEq/L 04/07/17 Range/Units 13:02 WBC (4.0-11.0) K/uL RBC (4.30-5.90) M/uL Hgb (12.0-16.0) g/dL Hct (36.0-46.0) % MCV (80.0-98.0) fL MCH (27.0-32.0) pg MCHC (31.0-37.0) g/dL RDW Std Deviation (28.0-62.0) fl RDW Coeff of Caleb (11.0-15.0) % Plt Count (150-400) K/uL MPV (7.40-12.00) fL Neut % (Auto) (48.0-80.0) % Lymph % (Auto) (16.0-40.0) % [facility] [place] % (Auto) (0.0-15.0) % Eos % (Auto) (0.0-7.0) % Baso % (Auto) (0.0-1.5) % Neut # (Auto) (1.4-5.7) K/uL Lymph # (Auto) (0.6-2.4) K/uL [facility] [place] [facility] # (Auto) (0.0-0.8) K/uL Eos # (Auto) (0.0-0.7) K/uL Baso # (Auto) (0.0-0.1) K/uL Nucleated RBC % /100WBC Nucleated RBCs # K/uL APTT 52.2 H (18.6-31.3) SEC Sodium (136-146) mmol/L Potassium (3.5-5.1) mmol/L Chloride (98-110) mmol/L Carbon Dioxide (21-31) mmol/L BUN (6.0-23.0) mg/dL Creatinine (0.6-1.5) mg/dL Est Cr Clr Drug Dosing mL/min Estimated GFR (MDRD) ml/min Glucose (60-110) mg/dL Calcium (8.8-10.8) mg/dL Magnesium (1.5-2.3) mEq/L Med Orders - Current: Current Medications Albuterol (Ventolin Hfa) 8 gm INH Q6H PRN PRN Reason: Shortness of Breath Albuterol/Ipratropium (Duoneb 3.0-0.5 Mg/3 Ml) 3 ml NEB Q4HRRT PRN PRN Reason: SOB/wheezing Benzonatate (Tessalon Perles) 200 mg PO TID PRN PRN Reason: Cough Heparin Sodium (Porcine) (Heparin Sodium) 0 units IVPUSH Q6H PRN PRN Reason: APPT RESULTS Pantoprazole Sodium 40 mg/ (Sodium Chloride) 10 mls @ 300 mls/hr IVPUSH DAILY [facility] Last Admin: 04/07/17 08:04 Dose: 300 mls/hr Sodium Chloride (Normal Saline) 1,000 mls @ 999 mls/hr IV .BOLUS [facility] Last Admin: 04/04/17 15:54 Dose: 999 mls/hr Heparin Sod,Pork In 0.45% Nacl (Heparin-1/2ns 25,000 Units/500) 25,000 unit in 500 mls @ 25.2 mls/hr IV TITRATE [facility]; 18 UNITS/KG/HR PRN Reason: Protocol Last Titration: 04/07/17 07:30 Dose: 4 units/kg/hr, 5.6 mls/hr Sodium Chloride (Normal Saline) 1,000 mls @ 125 mls/hr IV ASDIRECTED [facility] Last Admin: 04/07/17 08:13 Dose: 125 mls/hr Ceftriaxone Sodium/Dextrose 1 (gm/ Premix) 50 mls @ 100 mls/hr IV Q24H [facility] Last Admin: 04/07/17 15:16 Dose: 100 mls/hr Levothyroxine Sodium (Levothyroxine) 75 mcg PO ACBREAKFAST [facility] Last Admin: 04/07/17 06:43 Dose: 75 mcg Lorazepam (Ativan) 0.5 mg PO Q6HR PRN PRN Reason: Anxiety Polyethylene Glycol (Miralax) 17 gm PO BID PRN PRN Reason: Constipation Last Admin: 04/06/17 20:40 Dose: 17 gm Discontinued Medications Sodium Chloride (Normal Saline) 1,000 mls @ 999 mls/hr IV .Bolus ONE Stop: 04/04/17 14:38 Last Admin: 04/04/17 13:46 Dose: 999 mls/hr - Exam Quality Assessment: urine catheter. No: supplemental oxygen General: alert, oriented, no acute distress HEENT: Pupils equal, EOMI. No: Scleral icterus Neck: supple, trachea midline, +2 carotid pulse wo bruit Lungs: Normal respiratory effort, Crackles Cardiovascular: Regular Rate, Regular Rhythm Abdomen: bowel sounds present, soft, no tenderness Extremities: no edema Skin: warm, dry, intact Neurological: no new focal deficit Psy/Mental Status: alert, normal affect - Problem List & Annotations (1) Acute renal injury SNOMED Code(s): 85295550 Code(s): N17.9 - ACUTE KIDNEY FAILURE, UNSPECIFIED Status: Chronic Priority: High Current Visit: Yes Annotation/Comment:: Likely acute on chronic (2) Hx pulmonary embolism SNOMED Code(s): 951262963 Code(s): Z86.711 - PERSONAL HISTORY OF PULMONARY EMBOLISM Status: Acute Priority: High Current Visit: Yes (3) Small cell lung cancer SNOMED Code(s): 144873439 Code(s): C34.90 - MALIGNANT NEOPLASM OF UNSP PART OF UNSP BRONCHUS OR LUNG Status: Chronic Priority: High Current Visit: Yes Qualifiers: Laterality: unspecified laterality Qualified Code(s): C34.90 - Malignant neoplasm of unspecified part of unspecified bronchus or lung (4) Anemia due to chemotherapy Status: Chronic Priority: Medium Current Visit: Yes - Problem List Review Problem List Initiated/Reviewed/Updated: Yes - My Orders Last 24 Hours: My Active Orders 04/06/17 16:05 Polyethylene Glycol 3350 [MiraLAX] 17 gm PO BID PRN 04/07/17 15:19 Remove Urinary Catheter [Urinary Catheter Removal] [RC] Per Unit Routine 04/08/17 05:11 PTT,PARTIAL THROMBOPLSTIN TIME [COAG] AM - Plan Plan:: This 66 year old female admitted with KASANDRA and UTI 1. KASANDRA: ATN vs exposure to nephrotoxic chemo agent, Opdivo, paired with Xarelto.BUN CR improving today Continue NS 125 overnight, check BMP in am. Monitor strict I/O with indwelling catheter. 2. UTI: UC pending, will place on Rocephin for now. Monitor. 3. HX DVT/PE: Will hold Xarelto due to renal injury. Place on Heparin gtt. Monitor PTTs. 4. 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 5. Dysphagia: Vomiting up solid foods intermittently. Dr. Reardon recommended EGD, will arrange outpatient appointment with General Surgery. VTE: Heparin gtt. Dispo: 2-3 days. April 06, 2017: The patient is a 66-year-old lady who was admitted directly from the oncology center for renal failure. Patient has a past medical history of stage IV metastatic small cell lung cancer and has been undergoing chemotherapy. The patient also had been diagnosed with a pulmonary emboli and DVT. She is on Xarelto. This was discontinued and the patient was transitioned to heparin secondary to renal failure. The patient's INR because of the Xarelto was unreliable. The APTT should be continued to be monitored. Overall the patient's creatinine from April 04, 2017 to April 06, 2017 has improved from 5.9 mg/ dL to 4.0 mg/dL. Because of the patient's history of cancer, chemotherapy and because of her anemia I suspect that this is likely acute on chronic rather than acute renal failure. Regardless, the patient will continue to be hydrated and her creatinine trended. The patient will be continued on her medications as currently prescribed. April 07, 2017:Patient is a 66-year-old lady was admitted directly from the oncology center secondary to renal failure. Patient and the patient's family today reports that she has had relatively poor oral fluid intake. Overall, today the patient says that she is feeling much better. Patient does have a history of pulmonary emboli and DVT and she previously had been on Xarelto. The patient has been placed on heparin and the Xarelto discontinued temporarily. The patient does have a history of stage IV metastatic small cell lung cancer and has been undergoing chemotherapy and has been tolerating this. The patient today says that she is breathing better and she is in very little pain. The patient creatinine had improved from 4.0 mg deciliter to 2.9 mg/dL. I do not think that the patient is quite ready to go home yet but she should be okay tomorrow. For now the patient's BUN/creatinine will be monitored and after the heparin should be transitioned directly to Xarelto for her DVT/pulmonary emboli. Patient is also having some problems with dysphagia and she should be evaluated for an EGD as an outpatient. For the most part the patient is continue to improve. The urine in her Damon catheter is bright yellow and clear and I've ordered the Damon catheter removed. The patient is able to ambulate to the restroom safely. Patient will have her treatment plan modified as conditions and information indicates.
[2017-04-07] MEDS: Heparin Sod,Pork In 0.45% Nacl 25,000 UNIT/500 ML IV.SOLN IV SCH (18:08)
[2017-04-07] MEDS ORDERED: HYDROmorphone 1 MG/ML Syringe IVPUSH PRN (23:45)
[2017-04-08] MEDS ORDERED: Heparin Sodium 5,000 Units/ML Vial IVPUSH ONE (05:59)
[2017-04-08] MEDS: Levothyroxine 75 MCG Tab PO SCH (06:34)
[2017-04-08 08:31] VITALS: BP 140/62
[2017-04-08] MEDS ORDERED: Enoxaparin 100 MG/1 ML Syringe SUBCUT ONE (08:43)
--- NOTE | 2017-04-08 08:45 | PCM.DCSUM1 ---
<Aurea Haddad - Last Filed: 04/15/17 11:05> Discharge Summary - Hospital Course Free Text/Narrative:: Patient is a 66-year-old lady was admitted directly from the oncology center secondary to renal failure. Patient and the patient's family today reports that she has had relatively poor oral fluid intake. Overall, today the patient says that she is feeling much better. Patient does have a history of pulmonary emboli and DVT and she previously had been on Xarelto. The patient has been placed on heparin and the Xarelto discontinued temporarily. The patient does have a history of stage IV metastatic small cell lung cancer and has been undergoing chemotherapy and has been tolerating this. The patient today says that she is breathing better and she is in very little pain. The patient creatinine had improved from 4.0 mg deciliter to 2.9 mg/dL. I do not think that the patient is quite ready to go home yet but she should be okay tomorrow. For now the patient's BUN/creatinine will be monitored and after the heparin should be transitioned directly to Xarelto for her DVT/pulmonary emboli. Patient is also having some problems with dysphagia and she should be evaluated for an EGD as an outpatient. For the most part the patient is continue to improve. The urine in her Damon catheter is bright yellow and clear and I've ordered the Damon catheter removed. The patient is able to ambulate to the restroom safely. Patient will have her treatment plan modified as conditions and information indicates. - Discharge Data Discharge Date: 04/08/17 Discharge Disposition: Home, Self-Care 01 Condition: Good - Patient Instructions Diet: Renal Diet Activity: As Tolerated Driving: Do Not Drive Showering/Bathing: May Shower Notify Provider of: Fever, Increased Pain, Swelling and Redness, Drainage, Nausea and/or Vomiting - Discharge Plan Prescriptions/Med Rec: Enoxaparin Sodium [Lovenox] 70 mg SQ DAILY #14 ml Warfarin [Coumadin] 5 mg PO DAILY #30 tablet Home Medications: Home Meds LORazepam 0.5 mg PO Q6HR PRN 02/01/16 [History] Carvedilol 6.25 mg PO BID 10/08/16 [History] Albuterol Sulfate [Proair Respiclick] 2 inh IH Q6H PRN 04/04/17 [History] Benzonatate 200 mg PO TID PRN 04/04/17 [History] Levothyroxine Sodium 75 mcg PO ACBREAKFAST 04/04/17 [History] Magnesium Oxide 800 mg PO TID 04/04/17 [History] Nivolumab [Opdivo] 240 mg IV Q14D 04/04/17 [History] Omeprazole 20 mg PO ACBREAKFAST 04/04/17 [History] Enoxaparin Sodium [Lovenox] 70 mg SQ DAILY #14 ml 04/08/17 [Rx] Warfarin [Coumadin] 5 mg PO DAILY #30 tablet 04/08/17 [Rx] Patient Handouts: Enoxaparin injection, Warfarin tablets, Pulmonary Embolism, How and Where to Give Subcutaneous Enoxaparin Injections, Deep Vein Thrombosis Referrals: [facility] [Outside] Gio Hernandez MD [Physician] - 04/11/17 12:45 pm - General Info Date of Service: 04/08/17 - Review of Systems General: Reports: No Symptoms HEENT: Reports: no symptoms Pulmonary: Reports: no symptoms Cardiovascular: Reports: No Symptoms Gastrointestinal: Reports: No symptoms Genitourinary: Reports: no symptoms 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: Reports: no symptoms Skin: Reports: no symptoms Neurological: Reports: No Symptoms Psychiatric: Reports: no symptoms - Patient Data Vitals - Most Recent: Last Vital Signs Temp 97.5 F 04/08/17 08:00 Pulse 77 04/08/17 08:00 Resp 22 H 04/08/17 08:00 BP 140/62 04/08/17 08:00 Pulse Ox 95 04/08/17 08:00 Weight - Most Recent: 70.5 kg I&O - Last 24 hours: Intake & Output 04/07/17 04/08/17 04/08/17 22:59 06:59 14:59 Intake Total 1259 1073 Output Total 800 1735 Balance 459 -662 Lab Results - Last 24 hrs: Laboratory Results - last 24 hr 04/07/17 04/08/17 04/08/17 Range/Units 13:02 05:00 05:00 WBC 4.77 (4.0-11.0) K/uL RBC 2.92 L (4.30-5.90) M/uL Hgb 8.5 L (12.0-16.0) g/dL Hct 26.9 L (36.0-46.0) % MCV 92.1 (80.0-98.0) fL MCH 29.1 (27.0-32.0) pg MCHC 31.6 (31.0-37.0) g/dL RDW Std Deviation 49.8 (28.0-62.0) fl RDW Coeff of Caleb 15 (11.0-15.0) % Plt Count 261 (150-400) K/uL MPV 8.60 (7.40-12.00) fL Neut % (Auto) 57.1 (48.0-80.0) % Lymph % (Auto) 18.0 (16.0-40.0) % [place] % (Auto) 13.4 (0.0-15.0) % Eos % (Auto) 10.9 H (0.0-7.0) % Baso % (Auto) 0.6 (0.0-1.5) % Neut # (Auto) 2.7 (1.4-5.7) K/uL Lymph # (Auto) 0.9 (0.6-2.4) K/uL [place] # (Auto) 0.6 (0.0-0.8) K/uL Eos # (Auto) 0.5 (0.0-0.7) K/uL Baso # (Auto) 0.0 (0.0-0.1) K/uL Nucleated RBC % 0.0 /100WBC Nucleated RBCs # 0 K/uL APTT 52.2 H 47.1 H (18.6-31.3) SEC Sodium (136-146) mmol/L Potassium (3.5-5.1) mmol/L Chloride (98-110) mmol/L Carbon Dioxide (21-31) mmol/L BUN (6.0-23.0) mg/dL Creatinine (0.6-1.5) mg/dL Est Cr Clr Drug Dosing mL/min Estimated GFR (MDRD) ml/min Glucose (60-110) mg/dL Calcium (8.8-10.8) mg/dL 04/08/17 Range/Units 05:00 WBC (4.0-11.0) K/uL RBC (4.30-5.90) M/uL Hgb (12.0-16.0) g/dL Hct (36.0-46.0) % MCV (80.0-98.0) fL MCH (27.0-32.0) pg MCHC (31.0-37.0) g/dL RDW Std Deviation (28.0-62.0) fl RDW Coeff of Caleb (11.0-15.0) % Plt Count (150-400) K/uL MPV (7.40-12.00) fL Neut % (Auto) (48.0-80.0) % Lymph % (Auto) (16.0-40.0) % [place] % (Auto) (0.0-15.0) % Eos % (Auto) (0.0-7.0) % Baso % (Auto) (0.0-1.5) % Neut # (Auto) (1.4-5.7) K/uL Lymph # (Auto) (0.6-2.4) K/uL [place] # (Auto) (0.0-0.8) K/uL Eos # (Auto) (0.0-0.7) K/uL Baso # (Auto) (0.0-0.1) K/uL Nucleated RBC % /100WBC Nucleated RBCs # K/uL APTT (18.6-31.3) SEC Sodium 147 H (136-146) mmol/L Potassium 3.3 L (3.5-5.1) mmol/L Chloride 118 H (98-110) mmol/L Carbon Dioxide 21 (21-31) mmol/L BUN 26 H (6.0-23.0) mg/dL Creatinine 2.3 H (0.6-1.5) mg/dL Est Cr Clr Drug Dosing 21.49 mL/min Estimated GFR (MDRD) 21.3 ml/min Glucose 91 (60-110) mg/dL Calcium 8.1 L (8.8-10.8) mg/dL Med Orders - Current: Current Medications Albuterol (Ventolin Hfa) 8 gm INH Q6H PRN PRN Reason: Shortness of Breath Albuterol/Ipratropium (Duoneb 3.0-0.5 Mg/3 Ml) 3 ml NEB Q4HRRT PRN PRN Reason: SOB/wheezing Benzonatate (Tessalon Perles) 200 mg PO TID PRN PRN Reason: Cough Enoxaparin Sodium (Lovenox) 70 mg SUBCUT ONETIME ONE Stop: 04/08/17 08:44 Heparin Sodium (Porcine) (Heparin Sodium) 0 units IVPUSH Q6H PRN PRN Reason: APPT RESULTS Hydromorphone HCl (Dilaudid) 1 mg IVPUSH Q2H PRN PRN Reason: Pain Last Admin: 04/08/17 00:12 Dose: 1 mg Pantoprazole Sodium 40 mg/ (Sodium Chloride) 10 mls @ 300 mls/hr IVPUSH DAILY [facility] Last Admin: 04/07/17 08:04 Dose: 300 mls/hr Sodium Chloride (Normal Saline) 1,000 mls @ 999 mls/hr IV .BOLUS [facility] Last Admin: 04/04/17 15:54 Dose: 999 mls/hr Heparin Sod,Pork In 0.45% Nacl (Heparin-1/2ns 25,000 Units/500) 25,000 unit in 500 mls @ 25.2 mls/hr IV TITRATE [facility]; 18 UNITS/KG/HR PRN Reason: Protocol Last Titration: 04/08/17 06:03 Dose: 6 units/kg/hr, 8.4 mls/hr Sodium Chloride (Normal Saline) 1,000 mls @ 125 mls/hr IV ASDIRECTED [facility] Last Admin: 04/07/17 23:53 Dose: 125 mls/hr Ceftriaxone Sodium/Dextrose 1 (gm/ Premix) 50 mls @ 100 mls/hr IV Q24H [facility] Last Admin: 04/07/17 15:16 Dose: 100 mls/hr Levothyroxine Sodium (Levothyroxine) 75 mcg PO ACBREAKFAST [facility] Last Admin: 04/08/17 06:34 Dose: 75 mcg Lorazepam (Ativan) 0.5 mg PO Q6HR PRN PRN Reason: Anxiety Polyethylene Glycol (Miralax) 17 gm PO BID PRN PRN Reason: Constipation Last Admin: 04/06/17 20:40 Dose: 17 gm Potassium Chloride (Potassium Chloride) 40 meq PO DAILY [facility] Discontinued Medications Heparin Sodium (Porcine) (Heparin Sodium) 1,400 units IVPUSH ONETIME ONE PRN Reason: Protocol Stop: 04/08/17 06:00 Last Admin: 04/08/17 06:17 Dose: 1,400 units Sodium Chloride (Normal Saline) 1,000 mls @ 999 mls/hr IV .Bolus ONE Stop: 04/04/17 14:38 Last Admin: 04/04/17 13:46 Dose: 999 mls/hr - Exam General: Reports: alert, oriented HEENT: Reports: Pupils equal, EOMI Neck: Reports: supple, trachea midline Lungs: Reports: Clear to auscultation, Normal respiratory effort Cardiovascular: Reports: Regular Rate, Regular Rhythm Abdomen: Reports: bowel sounds present, soft Back Exam: Reports: Normal Inspection Extremities: Reports: no edema Skin: Reports: warm, dry, intact Neurological: Reports: no new focal deficit *Q Meaningful Use (DIS) - VTE *Q VTE Criteria *Q: - Stroke *Q Stroke Criteria *Q: - AMI *Q AMI Criteria *Q: <Cody Del Rio - Last Filed: 04/16/17 09:07> Discharge Summary - Hospital Course Free Text/Narrative:: I was present with the resident during history and examination. I discussed the case with the resident and agree with the findings and plan as documented in the residents note. - Discharge Diagnosis/Problem(s) (1) Acute renal injury SNOMED Code(s): 26063724 ICD Code: N17.9 - ACUTE KIDNEY FAILURE, UNSPECIFIED Status: Chronic Priority: High Problem Details: Likely acute on chronic (2) Hx pulmonary embolism SNOMED Code(s): 070705607 ICD Code: Z86.711 - PERSONAL HISTORY OF PULMONARY EMBOLISM Status: Acute Priority: High (3) Small cell lung cancer SNOMED Code(s): 010850423 ICD Code: C34.90 - MALIGNANT NEOPLASM OF UNSP PART OF UNSP BRONCHUS OR LUNG Status: Chronic Priority: High Qualifiers: Laterality: unspecified laterality Qualified Code(s): C34.90 - Malignant neoplasm of unspecified part of unspecified bronchus or lung (4) Anemia due to chemotherapy Status: Chronic Priority: Medium - Patient Data Vitals - Most Recent: Last Vital Signs Temp 36.4 C 04/08/17 08:00 Pulse 77 04/08/17 08:00 Resp 22 H 04/08/17 08:00 BP 140/62 04/08/17 08:00 Pulse Ox 95 04/08/17 08:00 Med Orders - Current: Current Medications Discontinued Medications Albuterol (Ventolin Hfa) 8 gm INH Q6H PRN PRN Reason: Shortness of Breath Albuterol/Ipratropium (Duoneb 3.0-0.5 Mg/3 Ml) 3 ml NEB Q4HRRT PRN PRN Reason: SOB/wheezing Benzonatate (Tessalon Perles) 200 mg PO TID PRN PRN Reason: Cough Enoxaparin Sodium (Lovenox) 70 mg SUBCUT ONETIME ONE Stop: 04/08/17 08:44 Last Admin: 04/08/17 08:54 Dose: 70 mg Heparin Sodium (Porcine) (Heparin Sodium) 0 units IVPUSH Q6H PRN PRN Reason: APPT RESULTS Heparin Sodium (Porcine) (Heparin Sodium) 1,400 units IVPUSH ONETIME ONE PRN Reason: Protocol Stop: 04/08/17 06:00 Last Admin: 04/08/17 06:17 Dose: 1,400 units Hydromorphone HCl (Dilaudid) 1 mg IVPUSH Q2H PRN PRN Reason: Pain Last Admin: 04/08/17 00:12 Dose: 1 mg Pantoprazole Sodium 40 mg/ (Sodium Chloride) 10 mls @ 300 mls/hr IVPUSH DAILY [facility] Last Admin: 04/08/17 08:55 Dose: 300 mls/hr Sodium Chloride (Normal Saline) 1,000 mls @ 999 mls/hr IV .BOLUS [facility] Last Admin: 04/04/17 15:54 Dose: 999 mls/hr Sodium Chloride (Normal Saline) 1,000 mls @ 999 mls/hr IV .Bolus ONE Stop: 04/04/17 14:38 Last Admin: 04/04/17 13:46 Dose: 999 mls/hr Heparin Sod,Pork In 0.45% Nacl (Heparin-1/2ns 25,000 Units/500) 25,000 unit in 500 mls @ 25.2 mls/hr IV TITRATE [facility]; 18 UNITS/KG/HR PRN Reason: Protocol Last Titration: 04/08/17 06:03 Dose: 6 units/kg/hr, 8.4 mls/hr Sodium Chloride (Normal Saline) 1,000 mls @ 125 mls/hr IV ASDIRECTED [facility] Last Admin: 04/07/17 23:53 Dose: 125 mls/hr Ceftriaxone Sodium/Dextrose 1 (gm/ Premix) 50 mls @ 100 mls/hr IV Q24H [facility] Last Admin: 04/07/17 15:16 Dose: 100 mls/hr Levothyroxine Sodium (Levothyroxine) 75 mcg PO ACBREAKFAST [facility] Last Admin: 04/08/17 06:34 Dose: 75 mcg Lorazepam (Ativan) 0.5 mg PO Q6HR PRN PRN Reason: Anxiety Polyethylene Glycol (Miralax) 17 gm PO BID PRN PRN Reason: Constipation Last Admin: 04/06/17 20:40 Dose: 17 gm Potassium Chloride (Potassium Chloride) 40 meq PO DAILY [facility] Last Admin: 04/08/17 08:54 Dose: 40 meq Warfarin Sodium (Coumadin) 5 mg PO 04/08/17@1000 [facility] Stop: 04/08/17 12:00 Last Admin: 04/08/17 09:29 Dose: 5 mg *Q Meaningful Use (DIS) - VTE *Q VTE Criteria *Q: - Stroke *Q Stroke Criteria *Q: - AMI *Q AMI Criteria *Q:
[2017-04-08] MEDS: Pantoprazole 40 MG in Sodium Chloride 0.9% 10 ML IVPUSH SCH (08:55)
[2017-04-08] MEDS ORDERED: Potassium Chloride 10% 20 MEQ/15 ML Soln 30 ML UD Cup PO SCH (09:00)
[2017-04-08] MEDS ORDERED: Warfarin 5 MG Tab PO SCH (10:00)
== END 2017-04-08 09:55 | disposition home or self-care (01) | DRG 469 ==
LOC: MW.MS 13:12 → UNDOADMIN 13:12 → MW.MS 13:26
PROVIDERS: ADMIT Internal Medicine; ATTEND Internal Medicine
DX: N17.9 Acute kidney failure, unspecified (principal); N30.01 Acute cystitis with hematuria; C34.90 Malignant neoplasm of unspecified part of unspecified bronchus or lung; D64.81 Anemia due to antineoplastic chemotherapy; C79.31 Secondary malignant neoplasm of brain; R11.10 Vomiting, unspecified; R13.10 Dysphagia, unspecified; I10 Essential (primary) hypertension; E03.9 Hypothyroidism, unspecified; F17.200 Nicotine dependence, unspecified, uncomplicated; Z86.711 Personal history of pulmonary embolism; Z86.718 Personal history of other venous thrombosis and embolism; Z79.899 Other long term (current) drug therapy
CPT/HCPCS: 36415; 51703; 76775; 76775-26; 80048; 81001; 82570; 83735; 84300; 85025; 85610; 85730; 87086; A9270-GY; C9113; J0696; J1170; J1644; J1650; J7040

== ENCOUNTER 2017-11-26 19:17 | Observation (INO) | payer MEDICARE, BC ==
[2017-11-26] MEDS ORDERED: Sodium Chloride 0.9% 10 ML Syringe FLUSH PRN (20:18)
[2017-11-26] MEDS ORDERED: Sodium Chloride 0.9% 2.5 ML Syringe FLUSH PRN (20:18)
[2017-11-26] MEDS ORDERED: Ondansetron 4 MG/2 ML SDV IVPUSH ONE (20:19)
[2017-11-26] MEDS ORDERED: Sodium Chloride 0.9% 1,000 ML IV ONE (20:19)
--- NOTE | 2017-11-26 20:22 | EDM.PDOC ---
ED HPI GENERAL MEDICAL PROBLEM - General Chief Complaint: Abdominal Pain Stated Complaint: VOMITING Time Seen by Provider: 11/26/17 20:18 - History of Present Illness INITIAL COMMENTS - FREE TEXT/NARRATIVE: HISTORY AND PHYSICAL: History of present illness: Patient 67-year-old female history of metastatic lung cancer who presents with concern of vomiting since this afternoon with no oral intake she feels dehydrated slightly weak she states her pain has been well controlled she is on palliative chemotherapy and has been doing relatively well with this per her family. She is also currently on warfarin for pulmonary embolism Review of systems: As per history of present illness and below otherwise all systems reviewed and negative. Past medical history: As per history of present illness and as reviewed below otherwise noncontributory. Surgical history: As per history of present illness and as reviewed below otherwise noncontributory. Social history: No reported history of drug or alcohol abuse. Family history: As per history of present illness and as reviewed below otherwise noncontributory. Physical exam: HEENT: Atraumatic, normocephalic, pupils reactive, mild conjunctival pallor noted no scleral icterus, mucous membranes dry throat clear, neck supple, nontender, trachea midline. Lungs: Diminished, breath sounds equal bilaterally, chest nontender. Heart: S1S2, regular, negative for clicks, rubs, or JVD. Abdomen: Soft, nondistended, no localized tenderness. Negative for masses or hepatosplenomegaly. Negative for costovertebral tenderness. Pelvis: Stable nontender. Genitourinary: Deferred. Rectal: Deferred. Extremities: Atraumatic, negative for cords or calf pain. Neurovascular unremarkable. Neuro: Awake, alert, oriented. Cranial nerves II through XII unremarkable. Cerebellum unremarkable. Motor and sensory unremarkable throughout. Exam nonfocal. Diagnostics: CBC CMP UA lipase EKG PT/INR abdominal series with chest x-ray Therapeutics: Normal saline 1 L bolus Zofran 4 mg IV Impression: # 1 history of metastatic lung CA #2 vomiting with dehydration #3 history of pulmonary embolism Definitive disposition and diagnosis as appropriate pending reevaluation and review of above. abdominal Pain Score (Numeric/FACES): 8 - Related Data Allergies Allergy/AdvReac Type Severity Reaction Status Date / Time latex Allergy Cannot Verified 11/26/17 19:43 Remember Home Meds: Home Meds Carvedilol 6.25 mg PO BID 10/08/16 [History] Benzonatate 200 mg PO TID PRN 04/04/17 [History] Levothyroxine Sodium 100 mcg PO DAILY 04/04/17 [History] Magnesium Oxide 800 mg PO TID 04/04/17 [History] Omeprazole 20 mg PO ACBREAKFAST 04/04/17 [History] Multivitamins [Childrens Chewable Vitamin] 0 mg PO DAILY 11/26/17 [History] Warfarin [Coumadin] 7.5 mg PO ASDIRECTED 11/26/17 [History] Warfarin [Coumadin] 10 mg PO ASDIRECTED 11/26/17 [History] Past Medical History HEENT History: Reports: Impaired Vision Other HEENT History: wears glasses sometimes Cardiovascular History: Reports: Hypertension Other Cardiovascular History: not currently taking medication Respiratory History: Reports: Other (See Below) Other Respiratory History: 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 Gastrointestinal History: Reports: GERD Genitourinary History: Reports: Other (See Below) Other Genitourinary History: Renal failure 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: 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 History: Reports: Fracture Other 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 History: fx left ankle Neurological History: Reports: Vertigo, Other (See Below) Other Neuro History: dizziness; Lung mets to the brain Psychiatric History: Reports: None Endocrine/Metabolic History: Reports: Hypothyroidism Hematologic History: Reports: None Other Hematologic History: son states her blood has been slow to clot recently Immunologic History: Reports: None Oncologic (Cancer) History: Reports: Lung Other Oncologic History: lung cancer is metastisized to brain Dermatologic History: Reports: None - Infectious Disease History Infectious Disease History: Reports: Chicken Pox - Past Surgical History Head Surgeries/Procedures: Reports: None HEENT Surgical History: Reports: None Cardiovascular Surgical History: Reports: Other (See Below) Other Cardiovascular Surgeries/Procedures: portacath Respiratory Surgical History: Reports: None Female Surgical History: Reports: None 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 Surgical History: Reports: None Oncologic Surgical History: Reports: Other (See Below) Social & Family History - Family History Family Medical History: Noncontributory - Tobacco Use Smoking Status *Q: Former Smoker Years of Tobacco use: 40 Packs/Tins Daily: 0.2 Used Tobacco, but Quit: Yes Month Tobacco Last Used: 2years Second Hand Smoke Exposure: No - Caffeine Use Caffeine Use: Reports: Soda - Recreational Drug Use Recreational Drug Use: No - Living Situation & Occupation Living situation: Reports: , with Family ED ROS GENERAL - Review of Systems Review Of Systems: ROS reveals no pertinent complaints other than HPI. ED EXAM, GENERAL - Physical Exam Exam: See Below (See dictation) Course - Vital Signs Last Recorded V/S: Last Vital Signs Temp 36.6 C 11/26/17 20:30 Pulse 85 11/26/17 20:30 Resp 20 11/26/17 20:30 BP 109/74 11/26/17 20:30 Pulse Ox 96 11/26/17 19:39 - Orders/Labs/Meds Orders: Active Orders 24 hr Category Date Time Status Cardiac Monitoring [RC] . DIRECTED Care 11/26/17 20:18 Active EKG Documentation Completion [RC] STAT Care 11/26/17 20:18 Active Pulse Oximetry [RC] ASDIRECTED Care 11/26/17 20:18 Active Abdomen Series w Chest 1V [CR] Stat Exams 11/26/17 20:19 Taken UA W/MICROSCOPIC [URIN] Stat Lab 11/26/17 20:18 Ordered Sodium Chloride 0.9% [Saline Flush] Med 11/26/17 20:18 Active 10 ml FLUSH ASDIRECTED PRN Sodium Chloride 0.9% [Saline Flush] Med 11/26/17 20:18 Active 2.5 ml FLUSH ASDIRECTED PRN Saline Lock Insert [OM.PC] Stat Oth 11/26/17 20:18 Ordered Medication Orders Sodium Chloride (Saline Flush) 10 ml FLUSH ASDIRECTED PRN PRN Reason: Keep Vein Open Sodium Chloride (Saline Flush) 2.5 ml FLUSH ASDIRECTED PRN PRN Reason: Keep Vein Open Labs: Laboratory Tests 11/26/17 11/26/17 11/26/17 Range/Units 19:55 19:55 19:55 WBC 9.19 (4.0-11.0) K/uL RBC 4.80 (4.30-5.90) M/uL Hgb 13.4 (12.0-16.0) g/dL Hct 41.7 (36.0-46.0) % MCV 86.9 (80.0-98.0) fL MCH 27.9 (27.0-32.0) pg MCHC 32.1 (31.0-37.0) g/dL RDW Std Deviation 49.4 (28.0-62.0) fl RDW Coeff of Caleb 16 H (11.0-15.0) % Plt Count 280 (150-400) K/uL MPV 9.80 (7.40-12.00) fL Neut % (Auto) 80.9 H (48.0-80.0) % Lymph % (Auto) 8.9 L (16.0-40.0) % [place] % (Auto) 8.6 (0.0-15.0) % Eos % (Auto) 1.3 (0.0-7.0) % Baso % (Auto) 0.3 (0.0-1.5) % Neut # (Auto) 7.4 H (1.4-5.7) K/uL Lymph # (Auto) 0.8 (0.6-2.4) K/uL [place] # (Auto) 0.8 (0.0-0.8) K/uL Eos # (Auto) 0.1 (0.0-0.7) K/uL Baso # (Auto) 0.0 (0.0-0.1) K/uL Nucleated RBC % 0.0 /100WBC Nucleated RBCs # 0 K/uL INR 2.25 Sodium 142 (136-146) mmol/L Potassium 4.0 (3.5-5.1) mmol/L Chloride 104 (98-110) mmol/L Carbon Dioxide 25 (21-31) mmol/L BUN 25 H (6.0-23.0) mg/dL Creatinine 1.1 (0.6-1.5) mg/dL Est Cr Clr Drug Dosing 44.03 mL/min Estimated GFR (MDRD) 49.8 ml/min Glucose 140 H (60-110) mg/dL Calcium 10.1 (8.8-10.8) mg/dL Total Bilirubin 1.6 H (0.1-1.5) mg/dL AST 1195 H (5-40) IU/L ALT 610 H (8-54) IU/L Alkaline Phosphatase 379 H (40-150) Total Protein 7.3 (6.0-8.0) g/dL Albumin 4.3 (3.4-4.8) g/dL Globulin 3.0 (2.0-3.5) g/dL Albumin/Globulin Ratio 1.4 (1.3-2.8) Lipase 58 (7-80) U/L Meds: Medications Generic Name Dose Route Start Last Admin Trade Name Jose Manuel PRN Reason Stop Dose Admin Sodium Chloride 10 ml 11/26/17 20:18 Saline Flush FLUSH ASDIRECTED PRN Keep Vein Open Sodium Chloride 2.5 ml 11/26/17 20:18 Saline Flush FLUSH ASDIRECTED PRN Keep Vein Open Discontinued Medications Generic Name Dose Route Start Last Admin Trade Name Jose Manuel PRN Reason Stop Dose Admin Sodium Chloride 1,000 mls @ 999 mls/hr 11/26/17 20:19 11/26/17 20:30 Normal Saline IV 11/26/17 21:19 999 mls/hr STAT ONE Administration Ondansetron HCl 4 mg 11/26/17 20:19 11/26/17 20:30 Zofran IVPUSH 11/26/17 20:20 4 mg ONETIME ONE Administration Departure - Departure Time of Disposition: 21:32 Disposition: Home, Self-Care 01 Condition: Good Clinical Impression: Metastatic cancer, Dehydration, Vomiting - Discharge Information Referrals: Gio Hernandez MD [Primary Care Provider] - Forms: ED Department Discharge - My Orders Last 24 Hours: My Active Orders 11/26/17 20:18 Cardiac Monitoring [RC] . DIRECTED EKG Documentation Completion [RC] STAT Pulse Oximetry [RC] ASDIRECTED UA W/MICROSCOPIC [URIN] Stat Sodium Chloride 0.9% [Saline Flush] 10 ml FLUSH ASDIRECTED PRN Sodium Chloride 0.9% [Saline Flush] 2.5 ml FLUSH ASDIRECTED PRN Saline Lock Insert [OM.PC] Stat 11/26/17 20:19 Abdomen Series w Chest 1V [CR] Stat - Assessment/Plan Last 24 Hours: My Active Orders 11/26/17 20:18 Cardiac Monitoring [RC] . DIRECTED EKG Documentation Completion [RC] STAT Pulse Oximetry [RC] ASDIRECTED UA W/MICROSCOPIC [URIN] Stat Sodium Chloride 0.9% [Saline Flush] 10 ml FLUSH ASDIRECTED PRN Sodium Chloride 0.9% [Saline Flush] 2.5 ml FLUSH ASDIRECTED PRN Saline Lock Insert [OM.PC] Stat 11/26/17 20:19 Abdomen Series w Chest 1V [CR] Stat
--- NOTE | 2017-11-26 22:39 | PCM.HP ---
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 Patient states that at around 2 PM on day of admission she became nauseous with subsequent vomiting. She reported no oral take an felt dehydrated and slightly weak. She also states that she did have some mid upper abdominal pain which has somewhat improved. She still has some epigastric as well as right upper quadrant pain. She reports no hemoptysis or blood in her emesis. She denies any diarrhea, bloody stool, dark tarry stools, sore throat, fever, chills, or recent illness. She does have a chronic cough which has been attributed to her metastatic lung cancer and been investigated multiple times. 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 Her last chemotherapy was on of last week. She states that she has been tolerating the chemotherapy well with no associated nausea or vomiting. She also has a history of pulmonary embolism and is on warfarin currently. Patient currently denies any chest pain, palpitations, shortness of breath, syncopal episodes, or focal neurologic episodes. Emergency department: CBC was unremarkable. INR was 2.25 which is sub-therapeutic for her DVT/PE prevention. CMP revealed elevated liver function tests with a total bilirubin of 1.6, AST 1195, ALT 610, and alkaline phosphatase 379. Lipase and urinalysis were unremarkable. Chest/abdomen/pelvis acute series x-ray revealed no acute intra-abdominal processes with minimal linear atelectasis or scarring left lung most likely secondary to her metastatic lung cancer. Patient was admitted for intractable vomiting and dehydration. Onset of Symptoms: Reports: Today, Sudden abdominal Pain Score (Numeric/FACES): 5 - Related Data Allergies/Adverse Reactions: Allergies Allergy/AdvReac Type Severity Reaction Status Date / Time latex Allergy Cannot Verified 11/26/17 19:43 Remember Home Medications: Home Meds Carvedilol 6.25 mg PO BID 10/08/16 [History] Benzonatate 200 mg PO TID PRN 04/04/17 [History] Levothyroxine Sodium 100 mcg PO DAILY 04/04/17 [History] Magnesium Oxide 800 mg PO TID 04/04/17 [History] Omeprazole 20 mg PO ACBREAKFAST 04/04/17 [History] Multivitamins [Childrens Chewable Vitamin] 0 mg PO DAILY 11/26/17 [History] Warfarin [Coumadin] 7.5 mg PO ASDIRECTED 11/26/17 [History] Warfarin [Coumadin] 10 mg PO ASDIRECTED 11/26/17 [History] Past Medical History HEENT History: Reports: Impaired Vision Other HEENT History: wears glasses sometimes Cardiovascular History: Reports: Hypertension Other Cardiovascular History: not currently taking medication Respiratory History: Reports: Other (See Below) Other Respiratory History: 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 Gastrointestinal History: Reports: GERD Genitourinary History: Reports: Other (See Below) Other Genitourinary History: Renal failure 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: 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 History: Reports: Fracture Other 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 History: fx left ankle Neurological History: Reports: Vertigo, Other (See Below) Other Neuro History: dizziness; Lung mets to the brain Psychiatric History: Reports: None Endocrine/Metabolic History: Reports: Hypothyroidism Hematologic History: Reports: None Other Hematologic History: son states her blood has been slow to clot recently Immunologic History: Reports: None Oncologic (Cancer) History: Reports: Lung Other Oncologic History: lung cancer is metastisized to brain Dermatologic History: Reports: None - Infectious Disease History Infectious Disease History: Reports: Chicken Pox - Past Surgical History Head Surgeries/Procedures: Reports: None HEENT Surgical History: Reports: None Cardiovascular Surgical History: Reports: Other (See Below) Other Cardiovascular Surgeries/Procedures: portacath Respiratory Surgical History: Reports: None Female Surgical History: Reports: None 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 Surgical History: Reports: None Oncologic Surgical History: Reports: Other (See Below) Social & Family History - Family History Family Medical History: Noncontributory - Tobacco Use Smoking Status *Q: Former Smoker Years of Tobacco use: 40 Packs/Tins Daily: 0.2 Used Tobacco, but Quit: Yes Month Tobacco Last Used: 2years Second Hand Smoke Exposure: No - Caffeine Use Caffeine Use: Reports: Soda - Recreational Drug Use Recreational Drug Use: No - Living Situation & Occupation Living situation: Reports: , with Family H&P Review of Systems - Review of Systems: Review Of Systems: See Below General: Reports: Weakness, Fatigue. Denies: Fever, Chills, Malaise HEENT: Denies: Headaches, Sore Throat Pulmonary: Reports: Cough, Sputum. Denies: Shortness of Breath, Wheezing, Pleuritic Chest Pain, Hemoptysis Cardiovascular: Denies: Chest Pain, Palpitations, Edema Gastrointestinal: Reports: Abdominal Pain, Nausea, Vomiting. Denies: Black Stool, Bloody Stool, Constipation, Diarrhea Genitourinary: Denies: Dysuria, Hematuria 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: Denies: Neck Pain, Leg Pain Skin: Denies: Cyanosis Psychiatric: Denies: Confusion Neurological: Denies: Confusion, Dizziness, Headache Hematologic/Lymphatic: Denies: Anemia Immunologic: Denies: Anaphylaxis Exam - Exam Exam: See Below - Vital Signs Vital Signs: Last Vital Signs Temp 97.7 F 11/26/17 22:10 Pulse 82 11/26/17 22:10 Resp 20 11/26/17 22:10 BP 124/75 11/26/17 22:10 Pulse Ox 94 L 11/26/17 22:10 Weight: 155 kg - Exam Quality Assessment: DVT Prophylaxis General: Alert, Oriented, Cooperative HEENT: Conjunctiva Clear, EACs Clear, EOMI, Hearing Intact, Mucosa Moist & [place] , Nares Patent, Normal Nasal Septum, Posterior Pharynx Clear, PERRLA Neck: Supple, Trachea Midline, 2 Lungs: Normal Respiratory Effort, Decreased Breath Sounds Cardiovascular: Regular Rate, Regular Rhythm GI/Abdominal Exam: Normal Bowel Sounds, Soft, No Organomegaly, No Distention, Tender (RUQ and epigastric.) (Female) Exam: Deferred Rectal (Female) Exam: Deferred Back Exam: Normal Inspection, Full Range of Motion, NT Extremities: Normal Inspection, Non-Tender, No Pedal Edema, Normal Capillary Refill Peripheral Pulses: 2+: Radial (L), Radial (R), Posterior Tibial (L), Posterior Tibial (R), Dorsalis Pedis (L), Dorsalis Pedis (R) Skin: Warm, Dry, Intact Neurological: Cranial Nerves Intact Neuro Extensive - Mental Status: Alert, Oriented x3, Normal Mood/Affect, Normal Cognition Neuro Extensive - Motor, Sensory, Reflexes: CN II-XII Intact Psychiatric: Alert, Normal Affect, Normal Mood - Patient Data Lab Results Last 24 hrs: Laboratory Results - last 24 hr 11/26/17 Range/Units 21:35 Urine Color YELLOW Urine Appearance SLT CLOUDY Urine pH 6.5 (5.0-8.0) Ur Specific [place] 1.010 (1.001-1.035) Urine Protein NEGATIVE (NEGATIVE) mg/dL Urine Glucose (UA) NEGATIVE (NEGATIVE) mg/dL Urine Ketones NEGATIVE (NEGATIVE) mg/dL Urine Occult Blood NEGATIVE (NEGATIVE) Urine Nitrite NEGATIVE (NEGATIVE) Urine Bilirubin NEGATIVE (NEGATIVE) Urine Urobilinogen 0.2 (<2.0) EU/dL Ur Leukocyte Esterase NEGATIVE (NEGATIVE) Urine RBC 1-2 (0-2/HPF) Urine WBC 0-2 (0-5/HPF) Ur Epithelial Cells FEW (NONE-FEW) Amorphous Sediment LIGHT (NEGATIVE) Urine Bacteria FEW (NEGATIVE) Result Diagrams: 11/26/17 19:55 11/26/17 19:55 *Q Meaningful Use (ADM) - VTE *Q VTE Criteria *Q: - Stroke *Q Stroke Criteria *Q: - AMI *Q AMI Criteria *Q: - Problem List (1) Intractable vomiting with nausea SNOMED Code(s): 129573508 ICD Code: R11.2 - NAUSEA WITH VOMITING, UNSPECIFIED Status: Acute Priority: High Current Visit: Yes Qualifiers: Vomiting type: unspecified Qualified Code(s): R11.2 - Nausea with vomiting , unspecified (2) Subtherapeutic anticoagulation SNOMED Code(s): 49463240 ICD Code: Z51.81 - ENCOUNTER FOR THERAPEUTIC DRUG LEVEL MONITORING; Z79.01 - GUEST SERVICES REPRESENTATIVE (CURRENT) USE OF ANTICOAGULANTS Status: Acute Priority: High Current Visit: Yes (3) Elevated LFTs SNOMED Code(s): 921217653 ICD Code: R79.89 - OTHER SPECIFIED ABNORMAL FINDINGS OF BLOOD CHEMISTRY Status: Acute Priority: High Current Visit: Yes (4) Primary small cell malignant neoplasm of lung, stage 4 SNOMED Code(s): 32808547335138 ICD Code: C34.90 - MALIGNANT NEOPLASM OF UNSP PART OF UNSP BRONCHUS OR LUNG Status: Chronic Priority: Medium Current Visit: Yes (5) Dehydration SNOMED Code(s): 67380495 ICD Code: E86.0 - DEHYDRATION Status: Acute Priority: High Current Visit: Yes (6) Hx pulmonary embolism SNOMED Code(s): 354460739 ICD Code: Z86.711 - PERSONAL HISTORY OF PULMONARY EMBOLISM Status: Chronic Priority: Medium Current Visit: Yes Problem List Initiated/Reviewed/Updated: Yes Orders Last 24hrs: Medication Orders Sodium Chloride (Saline Flush) 10 ml FLUSH ASDIRECTED PRN PRN Reason: Keep Vein Open Sodium Chloride (Saline Flush) 2.5 ml FLUSH ASDIRECTED PRN PRN Reason: Keep Vein Open Assessment/Plan Comment:: 67-year-old female admitted 11/27/17 for intractable vomiting and dehydration found to have elevated liver function tests and subtherapeutic INR with past medical history of stage IV metastatic small cell lung cancer, hypertension, hypothyroidism, and PE on warfarin. Intractable vomiting/dehydration: Currently improved with Zofran. We'll continue Zofran when necessary. We'll IV fluid resuscitate at this time and continue to monitor closely. Elevated liver function tests: Linear records these are acutely elevated as she had labs drawn on 11/20/17 that were basically normal. She does report some epigastric as well as right upper artery pain. We'll get a CT of the abdomen and pelvis further investigate. I did talk with the patient about what her desire would be if she needed possible surgery. At this point she is unclear if she would want a surgery and it would have to depend none what the results were.. This could be secondary to her metastatic lung cancer however with his acute arise I suspect that another processes involved. We'll continue to monitor closely. Subtherapeutic INR: Patient's INR is subtherapeutic for her history of DVT/PE. Will adjust Coumadin dosing as per pharmacy and monitor daily. Hypertension: Currently controlled we'll restart home medications. Hypothyroidism: We'll get TSH and restart home medication and adjust as needed. VTE proph: SCD, Coumadin Dispo: 1-2 days pending.
[2017-11-26] MEDS ORDERED: Morphine 2 MG/ML Syringe IVPUSH PRN (22:49)
[2017-11-26] MEDS ORDERED: oxyCODONE 5 MG Tab PO PRN (22:49)
[2017-11-26] MEDS ORDERED: Ondansetron 4 MG Tab.DIS PO PRN (22:49)
[2017-11-26] MEDS ORDERED: Ondansetron 4 MG/2 ML SDV IVPUSH PRN (22:49)
[2017-11-27] MEDS: Sodium Chloride 0.9% 1,000 ML IV SCH ×2 (03:55→09:40)
[2017-11-27 06:14] LABS: CHLORIDE,CL 110 mmol/L (98-110); SODIUM,NA 144 mmol/L (136-146)
[2017-11-27] MEDS: Magnesium Oxide 400 MG Tab PO SCH ×2 (06:37→14:18)
[2017-11-27] MEDS ORDERED: Levothyroxine 100 MCG Tab PO SCH (07:30)
[2017-11-27] MEDS ORDERED: Omeprazole 20 MG Cap.CR PO SCH (07:30)
[2017-11-27] MEDS ORDERED: Iopamidol 755 MG/ML 500 ML Multipack Bottle IVPUSH STA (08:28)
[2017-11-27] MEDS ORDERED: Carvedilol 6.25 MG Tab PO SCH (09:00)
[2017-11-27] MEDS ORDERED: Pantoprazole 40 MG Vial IVPUSH SCH (09:00)
[2017-11-27] MEDS ORDERED: Magnesium Sulfate/Water 4 GM in Premix Bag 1 BAG IV ONE (09:13)
--- NOTE | 2017-11-27 09:35 | CT ---
CT of the abdomen and pelvis with contrast. HISTORY: Pain TECHNIQUE: Axial CT images were obtained of the abdomen and pelvis following administration of 100 mL of Isovue-370 in the right antecubital fossa without complication. Coronal and sagittal reconstructi ons obtained. Comparison: 02/05/2017. FINDINGS: The lung bases are clear, no pleural effusion. There are a few tiny hypodensities within the right hepatic lobe, unchanged. There is stable nodular thickening of the right adrenal gland measuring roughly 2.5 x 1.7 cm. The pancreas is normal. Stable splenic hypodensity posteriorly. No bulky retroperitoneal lymphadenopathy. There is moderate perichol ecystic fluid noted. Common bile duct measures 7 mm, previously measuring 4 mm. The kidneys enhance and function symmetrically without evidence of obstructive uropathy. Renal cortic al cysts are noted bilaterally. The large and small bowel are normal in caliber without evidence of obstruction. No focal pericolonic inflammation or stranding. Ileocolonic anastomosis. No bulky pelvic lymphadenopathy or free pelvic f luid. The urinary bladder is normal. No suspicious osseous abnormalities. IMPRESSION: 1. Moderate pericholecystic fluid, correlate clinically for cholecystitis. 2. Mildly increased prominence of the common bile duct relative to the previous examination of the de finite filling defect. 3. Stable hepatic and splenic hypodensities.
--- NOTE | 2017-11-27 10:11 | CR ---
EXAM DATE: 11/26/17 PATIENT'S AGE: 67 Patient: MERA WILEY Facility: [place], [place] Site . Site : 1950 Study: XRay Chest/Abd/Pelvis acute series [id number]/27/2018 9:05:33 PM Ordering Physician: Afshan Carrizales Final Report: Indication: Vomiting Technique: Supine and upright views of the abdomen with frontal chest. Comparison: Correlation with CT abdomen pelvis October 01, 2017 Findings: : Soft tissues: No suspicious calcifications to suggest kidney or ureteral stones. No sign of free air. No sign of soft tissue mass. Bowel: Bowel pattern is within normal limits. Bones: Unremarkable for age. Chest: Normal cardiomediastinal silhouette. Left-sided Port-A-Cath tip terminates at the level of the distal superior vena cava. Minimal linear atelectasis or scarring in the left mid lung. Calcified granuloma in the right upper lobe. Remote right posterior 6th and 7th rib fractures. Impression: : No acute intra-abdominal process identified. Minimal linear atelectasis or scarring in the left mid lung. Dictated by Bozena Carter MD @ Nov 26 2017 9:05PM (Electronic Signature) Report Signed by Proxy. GULSHAN
[2017-11-27] MEDS ORDERED: Ciprofloxacin in D5W 400 MG in Premix Bag 1 BAG IV SCH ×4 (11:00→11:30)
[2017-11-27] MEDS: metroNIDAZOLE/Normal Saline 500 MG in Premix Bag 1 BAG IV SCH ×2 (13:34→17:26)
[2017-11-27] MEDS ORDERED: Warfarin 2.5 MG Tab PO SCH (14:00)
--- NOTE | 2017-11-27 19:25 | PCM.DCSUM1 ---
Discharge Summary - Hospital Course HPI Initial Comments: Discharge Summary Date of admission: 11/26/2017 Date of discharge: 11/27/2017 Admitting diagnosis: #1. Intractable nausea/vomiting/dehydration #2. Elevated LFT function tests #3. Subtherapeutic INR patient on Coumadin therapy secondary to history of PE #4. 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 Discharge diagnoses: #1. Intractable nausea/vomiting/dehydration now resolved #2. Elevated LFT function likely secondary to cholecystitis along with common bile duct obstruction with a 7 mm dilation which is a change from initial 4 mm seen in previous imaging #3. Therapeutic INR on Coumadin secondary to history of PE #4. Significant past medical history of metastatic small cell carcinoma the lung on palliative chemotherapy, hypertension, hypothyroidism, history of PE #5. Consultations: Gen. Surgery Procedures: None Hospitalization course: Patient was admitted on 11/26/2017 secondary to intractable vomiting and dehydration found to have an elevation of her liver function tests with a AST of greater than thousand which is significant as self- referral days prior the patient had a normal LFT function tests done. Patient was IV fluid resuscitated, patient put on Zofran for nausea and vomiting symptoms, patient progressed well from a intractable nausea and vomiting standpoint and by 11/19/2017 her nausea/vomiting improved to the point where she is no longer having those symptoms and is able to tolerate a regular diet. A CT scan of the abdomen showed moderate pericholecystic fluid likely clinically correlated to her cholecystitis, as well as mildly increased prominence of the common bile duct relative to previous examination with definitive filling defect , common bile duct currently 7 mm on previous imaging was seen to be 4 mm. As a result of this the patient was started on metronidazole and ciprofloxacin, and I spoke with Dr. Forde general surgery here recommended the patient be transferred for an ERCP and possible same stay cholecystectomy. Spoke with GI in [place] in [place] who agreed to accept the patient for an ERCP as well as the hospitalist team in [place] who accepted the patient to be transferred tonight. We did not do any agents for her Coumadin/therapeutic INR in the facility. I have already spoken with Dr. Starkey in [place] who has stated that she will do the reversal of the Coumadin therapy once the patient is transferred over. Disposition on discharge: Transferred to [facility] Condition on discharge: Stable Discharge medications: Continuation of home medication aside from Coumadin, continuation of antibiotic therapy initiated in the hospital including ciprofloxacin as well as metronidazole IV. - Discharge Data Discharge Date: 11/27/17 Discharge Disposition: DC/Tfer to Acute Hospital 02 Condition: Fair - Patient Instructions Diet: Regular Diet as Tolerated Activity: As Tolerated Driving: Do Not Drive Showering/Bathing: May Shower - Discharge Plan Home Medications: Home Meds Carvedilol 6.25 mg PO BID 10/08/16 [History] Benzonatate 200 mg PO TID PRN 04/04/17 [History] Levothyroxine Sodium 100 mcg PO DAILY 04/04/17 [History] Magnesium Oxide 800 mg PO TID 04/04/17 [History] Omeprazole 20 mg PO ACBREAKFAST 04/04/17 [History] Multivitamins [Childrens Chewable Vitamin] 0 mg PO DAILY 11/26/17 [History] Warfarin [Coumadin] 7.5 mg PO MOWEFR@1400 11/26/17 [History] Warfarin [Coumadin] 10 mg PO SUTUTHSA@1400 11/26/17 [History] Forms: ED Department Discharge Referrals: Gio Hernandez MD [Primary Care Provider] - - Discharge Summary/Plan Comment DC Time >30 min.: No - Patient Data Vitals - Most Recent: Last Vital Signs Temp 36.4 C 11/27/17 16:00 Pulse 62 11/27/17 16:00 Resp 16 11/27/17 16:00 BP 93/53 L 11/27/17 16:00 Pulse Ox 92 L 11/27/17 16:00 Weight - Most Recent: 68.3 kg I&O - Last 24 hours: Intake & Output 11/27/17 11/27/17 11/27/17 06:59 14:59 22:59 Intake Total 300 1400 2625 Output Total 250 2550 Balance 50 1400 75 Lab Results - Last 24 hrs: Laboratory Results - last 24 hr 11/26/17 11/27/17 11/27/17 Range/Units 21:35 05:21 05:21 WBC 5.17 (4.0-11.0) K/uL RBC 4.08 L (4.30-5.90) M/uL Hgb 11.3 L (12.0-16.0) g/dL Hct 35.7 L (36.0-46.0) % MCV 87.5 (80.0-98.0) fL MCH 27.7 (27.0-32.0) pg MCHC 31.7 (31.0-37.0) g/dL RDW Std Deviation 50.2 (28.0-62.0) fl RDW Coeff of Caleb 16 H (11.0-15.0) % Plt Count 229 (150-400) K/uL MPV 9.60 (7.40-12.00) fL Add Manual Diff YES Neutrophils % (Manual) 65 (48.0-80.0) % Band Neutrophils % 3 % Lymphocytes % (Manual) 28 (16.0-40.0) % Monocytes % (Manual) 2 (0.0-15.0) % Eosinophils % (Manual) 1 (0.0-7.0) % Basophils % (Manual) 1 (0.0-1.5) % Nucleated RBC % 0.0 /100WBC Absolute Seg Neuts 3.4 (1.4-5.7) Band Neutrophils # 0.2 Lymphocytes # (Manual) 1.4 (0.6-2.4) Monocytes # (Manual) 0.1 (0.0-0.8) Eosinophils # (Manual) 0.1 (0.0-0.7) Basophils # (Manual) 0.1 (0.0-0.1) Nucleated RBCs # 0 K/uL INR Sodium 144 (136-146) mmol/L Potassium 3.9 (3.5-5.1) mmol/L Chloride 110 (98-110) mmol/L Carbon Dioxide 27 (21-31) mmol/L BUN 20 (6.0-23.0) mg/dL Creatinine 0.9 (0.6-1.5) mg/dL Est Cr Clr Drug Dosing 53.81 mL/min Estimated GFR (MDRD) > 60.0 ml/min Glucose 87 (60-110) mg/dL Calcium 9.0 (8.8-10.8) mg/dL Phosphorus 3.3 (2.4-4.7) mg/dL Magnesium 1.4 L (1.5-2.3) mEq/L Total Bilirubin 2.1 H (0.1-1.5) mg/dL AST 941 H (5-40) IU/L ALT 730 H (8-54) IU/L Alkaline Phosphatase 348 H (40-150) Total Protein 5.6 L (6.0-8.0) g/dL Albumin 3.4 (3.4-4.8) g/dL Globulin 2.2 (2.0-3.5) g/dL Albumin/Globulin Ratio 1.6 (1.3-2.8) Urine Color YELLOW Urine Appearance SLT CLOUDY Urine pH 6.5 (5.0-8.0) Ur Specific Atkinson 1.010 (1.001-1.035) Urine Protein NEGATIVE (NEGATIVE) mg/dL Urine Glucose (UA) NEGATIVE (NEGATIVE) mg/dL Urine Ketones NEGATIVE (NEGATIVE) mg/dL Urine Occult Blood NEGATIVE (NEGATIVE) Urine Nitrite NEGATIVE (NEGATIVE) Urine Bilirubin NEGATIVE (NEGATIVE) Urine Urobilinogen 0.2 (<2.0) EU/dL Ur Leukocyte Esterase NEGATIVE (NEGATIVE) Urine RBC 1-2 (0-2/HPF) Urine WBC 0-2 (0-5/HPF) Ur Epithelial Cells FEW (NONE-FEW) Amorphous Sediment LIGHT (NEGATIVE) Urine Bacteria FEW (NEGATIVE) 11/27/17 Range/Units 05:21 WBC (4.0-11.0) K/uL RBC (4.30-5.90) M/uL Hgb (12.0-16.0) g/dL Hct (36.0-46.0) % MCV (80.0-98.0) fL MCH (27.0-32.0) pg MCHC (31.0-37.0) g/dL RDW Std Deviation (28.0-62.0) fl RDW Coeff of Caleb (11.0-15.0) % Plt Count (150-400) K/uL MPV (7.40-12.00) fL Add Manual Diff Neutrophils % (Manual) (48.0-80.0) % Band Neutrophils % % Lymphocytes % (Manual) (16.0-40.0) % Monocytes % (Manual) (0.0-15.0) % Eosinophils % (Manual) (0.0-7.0) % Basophils % (Manual) (0.0-1.5) % Nucleated RBC % /100WBC Absolute Seg Neuts (1.4-5.7) Band Neutrophils # Lymphocytes # (Manual) (0.6-2.4) Monocytes # (Manual) (0.0-0.8) Eosinophils # (Manual) (0.0-0.7) Basophils # (Manual) (0.0-0.1) Nucleated RBCs # K/uL INR 2.41 Sodium (136-146) mmol/L Potassium (3.5-5.1) mmol/L Chloride (98-110) mmol/L Carbon Dioxide (21-31) mmol/L BUN (6.0-23.0) mg/dL Creatinine (0.6-1.5) mg/dL Est Cr Clr Drug Dosing mL/min Estimated GFR (MDRD) ml/min Glucose (60-110) mg/dL Calcium (8.8-10.8) mg/dL Phosphorus (2.4-4.7) mg/dL Magnesium (1.5-2.3) mEq/L Total Bilirubin (0.1-1.5) mg/dL AST (5-40) IU/L ALT (8-54) IU/L Alkaline Phosphatase (40-150) Total Protein (6.0-8.0) g/dL Albumin (3.4-4.8) g/dL Globulin (2.0-3.5) g/dL Albumin/Globulin Ratio (1.3-2.8) Urine Color Urine Appearance Urine pH (5.0-8.0) Ur Specific Atkinson (1.001-1.035) Urine Protein (NEGATIVE) mg/dL Urine Glucose (UA) (NEGATIVE) mg/dL Urine Ketones (NEGATIVE) mg/dL Urine Occult Blood (NEGATIVE) Urine Nitrite (NEGATIVE) Urine Bilirubin (NEGATIVE) Urine Urobilinogen (<2.0) EU/dL Ur Leukocyte Esterase (NEGATIVE) Urine RBC (0-2/HPF) Urine WBC (0-5/HPF) Ur Epithelial Cells (NONE-FEW) Amorphous Sediment (NEGATIVE) Urine Bacteria (NEGATIVE) Med Orders - Current: Current Medications Carvedilol (Coreg) 6.25 mg PO BID [facility] Last Admin: 11/27/17 09:35 Dose: 6.25 mg Metronidazole 500 mg/ Premix 100 mls @ 100 mls/hr IV QID [facility] Last Admin: 02/28/18 17:26 Dose: 100 mls/hr Ciprofloxacin/Dextrose 400 mg/ (Premix) 200 mls @ 200 mls/hr IV Q12H [facility] Last Admin: 11/27/17 12:10 Dose: 200 mls/hr Levothyroxine Sodium (Synthroid) 100 mcg PO ACBREAKFAST [facility] Last Admin: 11/27/17 06:37 Dose: 100 mcg Magnesium Oxide (Magnesium Oxide) 800 mg PO TID [facility] Last Admin: 11/27/17 14:18 Dose: 800 mg Morphine Sulfate (Morphine) 2 mg IVPUSH Q2H PRN PRN Reason: Pain (severe 7-10) Stop: 11/27/17 22:54 Ondansetron HCl (Zofran Odt) 4 mg PO Q4H PRN PRN Reason: nausea, able to take PO Ondansetron HCl (Zofran) 4 mg IVPUSH Q4H PRN PRN Reason: Nausea Oxycodone HCl (Oxycodone) 5 mg PO Q4H PRN PRN Reason: Pain (moderate 4-6) Pantoprazole Sodium (Protonix Iv) 40 mg IVPUSH DAILY [facility] Last Admin: 11/27/17 09:37 Dose: 40 mg Sodium Chloride (Saline Flush) 10 ml FLUSH ASDIRECTED PRN PRN Reason: Keep Vein Open Sodium Chloride (Saline Flush) 2.5 ml FLUSH ASDIRECTED PRN PRN Reason: Keep Vein Open Warfarin Sodium (Coumadin) 7.5 mg PO MoWeFr@1400 [facility] Last Admin: 11/27/17 14:17 Dose: 7.5 mg Warfarin Sodium (Coumadin) 10 mg PO SuTuThSa@1400 [facility] Discontinued Medications Sodium Chloride (Normal Saline) 1,000 mls @ 999 mls/hr IV STAT ONE Stop: 11/26/17 21:19 Last Admin: 11/26/17 20:30 Dose: 999 mls/hr Sodium Chloride (Normal Saline) 1,000 mls @ 125 mls/hr IV ASDIRECTED [facility] Last Admin: 11/27/17 09:40 Dose: 125 mls/hr Magnesium Sulfate 4 gm/ Premix 100 mls @ 25 mls/hr IV ONETIME ONE Stop: 11/27/17 13:12 Last Admin: 11/27/17 09:37 Dose: 25 mls/hr Ciprofloxacin/Dextrose 400 mg/ (Premix) 200 mls @ 200 mls/hr IV Q12H [facility] Iopamidol (Isovue Multipack-370 (76%)) 100 ml IVPUSH ONETIME STA Stop: 11/27/17 08:29 Last Admin: 11/27/17 09:02 Dose: 100 ml Omeprazole (Omeprazole) 20 mg PO ACBREAKFAST [facility] Ondansetron HCl (Zofran) 4 mg IVPUSH ONETIME ONE Stop: 11/26/17 20:20 Last Admin: 11/26/17 20:30 Dose: 4 mg *Q Meaningful Use (DIS) - VTE *Q VTE Criteria *Q: - Stroke *Q Stroke Criteria *Q: - AMI *Q AMI Criteria *Q:
[2017-11-27 20:08] VITALS: BP 102/65
--- NOTE | 2017-11-28 10:28 | US ---
EXAM DATE: 11/26/17 PATIENT'S AGE: 67 Patient: MERA WILEY Facility: [place], [place] Site . Site : 1950 Study: US Abdomen [id number]/28/2018 7:09:28 PM Ordering Physician: Demler Camacho Final Report: INDICATION: pain TECHNIQUE: Ultrasound abdomen limited. Sonographic images of the right upper quadrant were obtained using quesada-scale and color Doppler images. COMPARISON: None FINDINGS: Liver: Normal in size and echotexture. No masses. No intrahepatic biliary dilatation. Gallbladder: Cholelithiasis. No pericholecystic fluid. Gallbladder wall thickening measuring up to 4 mm. Common bile duct: 7 mm. Pancreas: The imaged portion is unremarkable. Right kidney: 10 cm. Normal echotexture and cortex. No masses, stones, or hydronephrosis. Vasculature: Proximal abdominal aorta and IVC are normal. IMPRESSION: Cholelithiasis with gallbladder wall thickening. Findings suggestive for acute cholecystitis. . Dictated by Andrae Gloria MD @ 11/27/2017 7:38:05 PM Dictated by: Andrae Gloria MD @ 11/27/2017 19:38:33 (Electronic Signature) Report Signed by Proxy. MOH[facility] VALLEY HEALTH SYSTEMJulio Cesar
[2017-11-28] MEDS ORDERED: Warfarin 10 MG Tab PO SCH (14:00)
== END 2017-11-27 21:00 ==
LOC: MW.ED 19:17 → MW.MS 21:33
PROVIDERS: ADMIT Family Medicine; ATTEND Family Medicine
DX: E86.0 Dehydration (principal); R11.2 Nausea with vomiting, unspecified; R79.1 Abnormal coagulation profile; C34.90 Malignant neoplasm of unspecified part of unspecified bronchus or lung; I10 Essential (primary) hypertension; E03.9 Hypothyroidism, unspecified; C79.31 Secondary malignant neoplasm of brain; K21.9 Gastro-esophageal reflux disease without esophagitis; R79.89 Other specified abnormal findings of blood chemistry; Z79.01 Long term (current) use of anticoagulants; Z86.711 Personal history of pulmonary embolism; Z79.899 Other long term (current) drug therapy; Z91.040 Latex allergy status; Z87.891 Personal history of nicotine dependence; Z51.81 Encounter for therapeutic drug level monitoring
CPT/HCPCS: 36415; 74022; 74177; 76705; 80053; 81001; 83690; 83735; 84100; 85025; 85610; 93005; 96361; 96365; 96366; 96367; 96375; 99285; A9270; C9113; G0378; J0744; J2405; J3475; J7040; Q9967; 96374; 99283

== ENCOUNTER 2018-01-06 02:08 | Emergency (ER) | payer MEDICARE, BC ==
--- NOTE | 2018-01-06 02:53 | EDM.PDOC ---
ED HPI GENERAL MEDICAL PROBLEM - General Chief Complaint: Back Pain or Injury Stated Complaint: BACK PAIN Time Seen by Provider: 01/06/18 02:52 Source of Information: Reports: Patient - History of Present Illness INITIAL COMMENTS - FREE TEXT/NARRATIVE: HISTORY AND PHYSICAL: History of present illness: [Patient presents via private vehicle Patient has a known history of lung cancer metastasis to brain making her unsteady on her feet, hence, she is generally in a wheelchair. Saturday night she did ambulate with walker in her home and had a fall as she became unsteady on her feet. she fell straight down to her bottom no head injury or loss of consciousness she complains now of 10 out of 10 low back pain worsened with ambulation better at rest Pain radiates down her right leg to the level of her knee in a sciatic distribution While lying she is comfortable and in no distress, fall occurred 24 hours prior to arrival ] Review of systems: As per history of present illness and below otherwise all systems reviewed and negative. Past medical history: As per history of present illness and as reviewed below otherwise noncontributory. Surgical history: As per history of present illness and as reviewed below otherwise noncontributory. Social history: No reported history of drug or alcohol abuse. Family history: As per history of present illness and as reviewed below otherwise noncontributory. Physical exam: HEENT: Atraumatic, normocephalic, pupils reactive, negative for conjunctival pallor or scleral icterus, mucous membranes moist, throat clear, neck supple, nontender, trachea midline. Lungs: Clear to auscultation, breath sounds equal bilaterally, chest nontender. Heart: S1S2, regular, negative for clicks, rubs, or JVD. Abdomen: Soft, nondistended, nontender. Negative for masses or hepatosplenomegaly. Negative for costovertebral tenderness. Pelvis: Stable nontender. Genitourinary: Deferred. Rectal: Deferred. Extremities: Atraumatic, negative for cords or calf pain. Neurovascular unremarkable. Neuro: Awake, alert, oriented. Cranial nerves II through XII unremarkable. Cerebellum unremarkable. Motor and sensory unremarkable throughout. Exam nonfocal. Diagnostics: [Pelvis Lumbar spine ] Therapeutics: [Tramadol 50 mg by mouth now 3 times a day when necessary #30 no refill ] Impression: [: fall in Home Low back pain mild height loss of L1 and L2 vertebrae compared to October 01, 2017 Chronic history of baseline ] Definitive disposition and diagnosis as appropriate pending reevaluation and review of above. low back Pain Score (Numeric/FACES): 10 - Related Data Allergies Allergy/AdvReac Type Severity Reaction Status Date / Time No Known Allergies Allergy Verified 01/06/18 02:32 Home Meds: Home Meds Carvedilol 6.25 mg PO BID 10/08/16 [History] Benzonatate 200 mg PO ASDIRECTED PRN 04/04/17 [History] Levothyroxine Sodium 100 mcg PO DAILY 04/04/17 [History] Magnesium Oxide 800 mg PO TID 04/04/17 [History] Omeprazole 20 mg PO ACBREAKFAST 04/04/17 [History] Multivitamins [Childrens Chewable Vitamin] 0 mg PO DAILY 11/26/17 [History] Warfarin [Coumadin] 7.5 mg PO MOWEFR@1400 11/26/17 [History] Warfarin [Coumadin] 10 mg PO SUTUTHSA@1400 11/26/17 [History] Past Medical History HEENT History: Reports: Impaired Vision Other HEENT History: wears glasses sometimes Cardiovascular History: Reports: Hypertension Other Cardiovascular History: not currently taking medication Respiratory History: Reports: Other (See Below) Other Respiratory History: 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 Gastrointestinal History: Reports: GERD Genitourinary History: Reports: Other (See Below) Other Genitourinary History: Renal failure [employer] History: Reports: 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 History: Reports: Fracture Other 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 History: fx left ankle Neurological History: Reports: Vertigo, Other (See Below) Other Neuro History: dizziness; Lung mets to the brain Psychiatric History: Reports: None Endocrine/Metabolic History: Reports: Hypothyroidism Hematologic History: Reports: None Other Hematologic History: son states her blood has been slow to clot recently Immunologic History: Reports: None Oncologic (Cancer) History: Reports: Lung Other Oncologic History: lung cancer is metastisized to brain Dermatologic History: Reports: None - Infectious Disease History Infectious Disease History: Reports: Chicken Pox - Past Surgical History HEENT Surgical History: Reports: None Cardiovascular Surgical History: Reports: Other (See Below) Other Cardiovascular Surgeries/Procedures: portacath Respiratory Surgical History: Reports: None Female Surgical History: Reports: None 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 Surgical History: Reports: None Oncologic Surgical History: Reports: Other (See Below) Social & Family History - Family History Family Medical History: Noncontributory - Tobacco Use Smoking Status *Q: Current Every Day Smoker Years of Tobacco use: 30 Packs/Tins Daily: 1 Used Tobacco, but Quit: Yes Month/Year Tobacco Last Used: 2years Second Hand Smoke Exposure: No - Caffeine Use Caffeine Use: Reports: Soda - Recreational Drug Use Recreational Drug Use: No - Living Situation & Occupation Living situation: Reports: , with Family ED ROS GENERAL - Review of Systems Review Of Systems: ROS reveals no pertinent complaints other than HPI. ED EXAM, GENERAL - Physical Exam Exam: See Below Course - Vital Signs Last Recorded V/S: Last Vital Signs Temp 98 F 01/06/18 03:17 Pulse 78 01/06/18 03:17 Resp 24 H 01/06/18 02:08 BP 116/88 01/06/18 03:17 Pulse Ox 93 L 01/06/18 03:17 - Orders/Labs/Meds Orders: Active Orders 24 hr Category Date Time Status Lumbar Spine 2 or 3V [CR] Stat Exams 01/06/18 02:52 Taken Pelvis 1V or 2V [CR] Stat Exams 01/06/18 02:52 Taken traMADol [Ultram] Med 01/06/18 04:02 Once 50 mg PO ONETIME ONE Departure - Departure Time of Disposition: 04:04 Disposition: Home, Self-Care 01 Condition: Good Clinical Impression: Low back pain - Discharge Information Referrals: Gio Hernandez MD [Primary Care Provider] - Forms: ED Department Discharge Additional Instructions: Medication as prescribed Return if symptoms persist or worsen Follow-up with primary care in 2 weeks sooner as needed The following information is given to patients seen in the emergency department who are being discharged to home. This information is to outline your options for follow-up care. We provide all patients seen in our emergency department with a follow-up referral. The need for follow-up, as well as the timing and circumstances, are variable depending upon the specifics of your emergency department visit. If you don't have a primary care physician on staff, we will provide you with a referral. We always advise you to contact your personal physician following an emergency department visit to inform them of the circumstance of the visit and for follow-up with them and/or the need for any referrals to a consulting specialist. The emergency department will also refer you to a specialist when appropriate. This referral assures that you have the opportunity for follow-up care with a specialist. All of these measure are taken in an effort to provide you with optimal care, which includes your follow-up. Under all circumstances we always encourage you to contact your private physician who remains a resource for coordinating your care. When calling for follow-up care, please make the office aware that this follow-up is from your recent emergency room visit. If for any reason you are refused follow-up, please contact the [facility] emergency department at and asked to speak to the emergency department charge nurse. - My Orders Last 24 Hours: My Active Orders 01/06/18 02:52 Lumbar Spine 2 or 3V [CR] Stat Pelvis 1V or 2V [CR] Stat 01/06/18 04:02 traMADol [Ultram] 50 mg PO ONETIME ONE - Assessment/Plan Last 24 Hours: My Active Orders 01/06/18 02:52 Lumbar Spine 2 or 3V [CR] Stat Pelvis 1V or 2V [CR] Stat 01/06/18 04:02 traMADol [Ultram] 50 mg PO ONETIME ONE
[2018-01-06] MEDS ORDERED: traMADol 50 MG Tab PO ONE (04:02)
[2018-01-06 04:13] VITALS: BP 126/87
--- NOTE | 2018-01-06 15:33 | CR ---
EXAM DATE: 01/06/18 PATIENT'S AGE: 67 Patient: MERA WILEY Facility: [place], [place] Site . Site : 1950 Study: XRay Pelvis [id number]/9/2018 3:18:20 AM Ordering Physician: Doctor Aguilera Final Report: Indication: Fall Technique: Frontal view pelvis Comparison: CT pelvis October 01, 2017 Findings: Bones: Alignment is normal. No fractures or bone lesions. Joint spaces: Moderate degenerative changes in both hip joints. Degenerative disc disease in the lower lumbar spine Soft tissues: Unremarkable. Impression: No acute abnormality. Dictated by Bozena Carter MD @ Jan 06 2018 3:34AM (Electronic Signature) Report Signed by Proxy. GULSHAN
--- NOTE | 2018-01-06 15:34 | CR ---
EXAM DATE: 01/06/18 PATIENT'S AGE: 67 Patient: MERA WILEY Facility: [place], [place] Site . Site : 1950 Study: XRay Spine Lumbar [id number]/9/2018 3:18:32 AM Ordering Physician: Doctor Aguilera Final Report: INDICATION: Fall, low back pain TECHNIQUE: Lumbar spine 3 view. COMPARISON: None FINDINGS: Bones: There is mild height loss of L1 and L2 vertebrae. Joints: Moderate multilevel degenerative disc and facet disease. Soft tissues: Aortic wall calcifications noted. IMPRESSION: Mild height loss of the L1 and L2 vertebrae, new compared to October 01, 2017. Consider CT lumbar spine for further evaluation if clinically indicated. Dictated by Bozena Carter MD @ Jan 06 2018 3:37AM (Electronic Signature) Report Signed by Proxy. GULSHAN
== END 2018-01-06 04:40 | disposition home or self-care (01) ==
LOC: MW.ED 02:08
DX: M54.5 Low back pain (principal); I10 Essential (primary) hypertension; K21.9 Gastro-esophageal reflux disease without esophagitis; F17.210 Nicotine dependence, cigarettes, uncomplicated; Z79.899 Other long term (current) drug therapy; W19.XXXA Unspecified fall, initial encounter
CPT/HCPCS: 72100; 72170; 99283; A9270

== ENCOUNTER 2018-02-13 20:08 | Emergency (ER) | payer MEDICARE, BC ==
--- NOTE | 2018-02-13 20:29 | EDM.PDOC ---
ED HPI GENERAL MEDICAL PROBLEM - General Chief Complaint: Lower Extremity Injury/Pain Stated Complaint: FALL/PAIN RT ANKLE Time Seen by Provider: 02/13/18 20:09 Source of Information: Reports: Patient History Limitations: Reports: No Limitations - History of Present Illness INITIAL COMMENTS - FREE TEXT/NARRATIVE: HISTORY AND PHYSICAL: History of present illness: Patient is a 67-year-old female who presents to the emergency room with complaints of right ankle pain, swelling and bruising after falling out of her wheelchair. Family states she was unwitnessed for approximately 3 hours and her concern that she is weak on her right side. Patient states that she has progressively felt weak intermittently over the past 6-7 days. She reports this was a mechanical fall. Her foot was caught between the wheel of her wheelchair and needed assistance getting up. She did not have any chest pain, shortness of breath, syncope or dizziness now or during this event. He denies any fever, chills, abdominal pain, nausea, vomiting, diarrhea or constipation. 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 Family/Patient requesting a head CT as she takes Coumadin daily, hx of brain tumor, and concerned about her right sided weakness. History of anemia (due to chemotherapy), pneumonia, PE, DVT, and left fibular fracture. Review of systems: As per history of present illness and below otherwise all systems reviewed and negative. Past medical history: As per history of present illness and as reviewed below otherwise noncontributory. Surgical history: As per history of present illness and as reviewed below otherwise noncontributory. Social history: No reported history of drug or alcohol abuse. Family history: As per history of present illness and as reviewed below otherwise noncontributory. Physical exam: General: Well-developed and well-nourished 67-year-old female. Alert and oriented. Nontoxic appearing and in no acute distress. HEENT: Atraumatic, normocephalic, pupils equal and reactive bilaterally, negative for conjunctival pallor or scleral icterus, mucous membranes moist, throat clear, neck supple, nontender, trachea midline. No drooling or trismus noted. No meningeal signs Lungs: Clear to auscultation, breath sounds equal bilaterally, chest nontender. Heart: S1S2, regular rate and rhythm without overt murmur Abdomen: Soft, nondistended, nontender. Negative for masses or hepatosplenomegaly. Negative for costovertebral tenderness. Pelvis: Stable nontender. Genitourinary: Deferred. Rectal: Deferred. Skin: Soft tissue swelling with bruising to right lateral/anterior ankle. + Pedal Pulses bilaterally. Otherwise skin is intact, warm, dry. No lesions or rashes noted. Extremities: Uses wheelchair for ambulation. Moves all extremities per self; increased pain with ROM of right ankle flexion/extension. Appears to have no achilles involvement, negative for cords or calf pain. Neurovascular unremarkable. Neuro: Awake, alert, oriented. Cranial nerves II through XII unremarkable. Cerebellum unremarkable. Motor and sensory unremarkable throughout. Exam nonfocal. Notes: Patient had chemotherapy this morning. States she has some generalized weakness (normal variance). Will perform routine cardiac labs for thoroughness. Her NIH scale 0. She declines anything for pain at this time. Elevate and ice the affected extremity. Xray of the right ankle shows oblique displaced distal right fibular fracture. Medial malleolus avulsion fracture. EKG shows sinus rhythm with rate of 93. CBC shows a Hcgb 10.7, Hct 33.3, Troponin 0.06 (H), Bun 25, Creat 1.2. Patient denies any chest pain, SOB, diaphoresis or dizziness. Currently our hospital is full and we do not have any beds available. Due to her fracture, comorbidities and elevated troponin I did request to the patient that we transfer her to the closest facility, [facility]. Patient is reluctant but agreeable. We did discuss her CODE STATUS. She would take to be a CODE STATUS 1 and have all measures attempted. [id number] On hold at [facility] during this time. Unable to reach an ER physician, as they are busy. She requests that we call back at [phone] as a 3rd ER provider will be coming on shift. 2209: Dr Merritt of [facility] has accepted this patient. She will be transferred via ground EMS. Diagnostics: CBC, CMP, Troponin, EKG, PT/INR, Head CT, Ankle Xray (R) Therapeutics: Supportive (ICE/ELEVATION) Impression: Right Ankle bimalleolar fracture Elevated troponin Plan: Ground EMS to [facility] Definitive disposition and diagnosis as appropriate pending reevaluation and review of above. Right Ankle Pain Score (Numeric/FACES): 10 - Related Data Allergies Allergy/AdvReac Type Severity Reaction Status Date / Time No Known Allergies Allergy Verified 02/13/18 20:26 Home Meds: Home Meds Carvedilol 6.25 mg PO BID 10/08/16 [History] Benzonatate 200 mg PO ASDIRECTED PRN 04/04/17 [History] Levothyroxine Sodium 100 mcg PO DAILY 04/04/17 [History] Magnesium Oxide 800 mg PO TID 04/04/17 [History] Omeprazole 20 mg PO ACBREAKFAST 04/04/17 [History] Multivitamins [Childrens Chewable Vitamin] 0 mg PO DAILY 11/26/17 [History] Warfarin [Coumadin] 7.5 mg PO ASDIRECTED 11/26/17 [History] Past Medical History HEENT History: Reports: Impaired Vision Other HEENT History: wears glasses sometimes Cardiovascular History: Reports: Hypertension Other Cardiovascular History: not currently taking medication Respiratory History: Reports: Other (See Below) Other Respiratory History: 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 Gastrointestinal History: Reports: GERD Genitourinary History: Reports: Other (See Below) Other Genitourinary History: Renal failure [employer]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: 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 History: Reports: Fracture Other 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 History: fx left ankle Neurological History: Reports: Vertigo, Other (See Below) Other Neuro History: dizziness; Lung mets to the brain Psychiatric History: Reports: None Endocrine/Metabolic History: Reports: Hypothyroidism Hematologic History: Reports: None Other Hematologic History: son states her blood has been slow to clot recently Immunologic History: Reports: None Oncologic (Cancer) History: Reports: Lung Other Oncologic History: lung cancer is metastisized to brain Dermatologic History: Reports: None - Infectious Disease History Infectious Disease History: Reports: Chicken Pox - Past Surgical History HEENT Surgical History: Reports: None Cardiovascular Surgical History: Reports: Other (See Below) Other Cardiovascular Surgeries/Procedures: portacath Respiratory Surgical History: Reports: None Female Surgical History: Reports: None 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 Surgical History: Reports: None Oncologic Surgical History: Reports: Other (See Below) Social & Family History - Family History Family Medical History: Noncontributory - Caffeine Use Caffeine Use: Reports: Soda - Living Situation & Occupation Living situation: Reports: , with Family Review of Systems - Review of Systems Review Of Systems: ROS reveals no pertinent complaints other than HPI. ED EXAM, GENERAL - Physical Exam Exam: See Below (See dictation) Course - Vital Signs Last Recorded V/S: Last Vital Signs Temp 97.8 F 02/13/18 21:56 Pulse 88 02/13/18 21:56 Resp 20 02/13/18 21:56 BP 100/62 02/13/18 21:56 Pulse Ox 93 L 02/13/18 21:56 - Orders/Labs/Meds Orders: Active Orders 24 hr Category Date Time Status EKG 12 Lead [EKG Documentation Completion] [RC] STAT Care 02/13/18 20:20 Active Ankle Min 3V Rt [CR] Stat Exams 02/13/18 20:09 Taken Head wo Cont [CT] Stat Exams 02/13/18 20:20 Taken Labs: Laboratory Tests 02/13/18 02/13/18 02/13/18 Range/Units 20:50 20:50 20:50 WBC 7.85 (4.0-11.0) K/uL RBC 3.74 L (4.30-5.90) M/uL Hgb 10.7 L (12.0-16.0) g/dL Hct 33.3 L (36.0-46.0) % MCV 89.0 (80.0-98.0) fL MCH 28.6 (27.0-32.0) pg MCHC 32.1 (31.0-37.0) g/dL RDW Std Deviation 51.0 (28.0-62.0) fl RDW Coeff of Caleb 16 H (11.0-15.0) % Plt Count 233 (150-400) K/uL MPV 9.40 (7.40-12.00) fL Neut % (Auto) 68.4 (48.0-80.0) % Lymph % (Auto) 13.6 L (16.0-40.0) % Villalba % (Auto) 14.1 (0.0-15.0) % Eos % (Auto) 3.4 (0.0-7.0) % Baso % (Auto) 0.5 (0.0-1.5) % Neut # (Auto) 5.4 (1.4-5.7) K/uL Lymph # (Auto) 1.1 (0.6-2.4) K/uL Villalba # (Auto) 1.1 H (0.0-0.8) K/uL Eos # (Auto) 0.3 (0.0-0.7) K/uL Baso # (Auto) 0.0 (0.0-0.1) K/uL Nucleated RBC % 0.0 /100WBC Nucleated RBCs # 0 K/uL INR 1.61 Sodium 141 (136-145) mmol/L Potassium 3.6 (3.5-5.1) mmol/L Chloride 107 (98-107) mmol/L Carbon Dioxide 26.8 (21.0-32.0) mmol/L BUN 25 H (7.0-18.0) mg/dL Creatinine 1.2 H (0.6-1.0) mg/dL Est Cr Clr Drug Dosing 40.36 mL/min Estimated GFR (MDRD) 45.1 ml/min Glucose 147 H (74-106) mg/dL Calcium 8.8 (8.5-10.1) mg/dL Total Bilirubin 0.5 (0.2-1.0) mg/dL AST 25 (15-37) IU/L ALT 21 (14-63) IU/L Alkaline Phosphatase 75 (46-116) U/L Troponin I 0.060 H* (0.000-0.056) ng/mL Total Protein 5.8 L (6.4-8.2) g/dL Albumin 3.2 L (3.4-5.0) g/dL Globulin 2.6 (2.0-3.5) g/dL Albumin/Globulin Ratio 1.2 L (1.3-2.8) Departure - Departure Time of Disposition: 22:12 Disposition: DC/Tfer to Other 70 Clinical Impression: Elevated troponin Ankle fracture, right Qualifiers: Encounter type: initial encounter Fracture type: closed Qualified Code(s): S82.891A - Other fracture of right lower leg, initial encounter for closed fracture - Discharge Information Referrals: Gio Hernandez MD [Primary Care Provider] - Forms: ED Department Discharge - My Orders Last 24 Hours: My Active Orders 02/13/18 20:09 Ankle Min 3V Rt [CR] Stat 02/13/18 20:20 EKG 12 Lead [EKG Documentation Completion] [RC] STAT Head wo Cont [CT] Stat - Assessment/Plan Last 24 Hours: My Active Orders 02/13/18 20:09 Ankle Min 3V Rt [CR] Stat 02/13/18 20:20 EKG 12 Lead [EKG Documentation Completion] [RC] STAT Head wo Cont [CT] Stat
[2018-02-13 23:23] VITALS: BP 109/65
--- NOTE | 2018-02-14 10:23 | CR ---
EXAM DATE: 02/13/18 PATIENT'S AGE: 67 Patient: MERA WILEY Facility: [place], [place] Site . Site : 1950 Study: XRay Extremity Right ankle [id number]/17/2018 8:29:37 PM Ordering Physician: Doctor Aguilera Final Report: INDICATION: 67-year-old female status post fall. TECHNIQUE: Ankle radiograph 3 views COMPARISON: None FINDINGS: Oblique, nondisplaced distal right fibular fracture at level of ankle joint. Possible avulsion fracture fragments at the inferior margin of medial malleolus with adjacent soft tissue swelling. Moderate degree of lateral right ankle soft tissue swelling. Ankle mortise appears to be congruent. No posterior malleoli as were tailored dome fracture. Visualized 5th metatarsal base intact on lateral view. IMPRESSION: 1. Oblique, displaced distal right fibular fracture. 2. Medial malleolus avulsion fracture. Dictated by Yoandy Corea MD @ 02/13/2018 8:35:07 PM Dictated by: Yoandy Corea MD @ 02/13/2018 20:35:13 (Electronic Signature) Report Signed by Proxy. GULSHAN
--- NOTE | 2018-02-14 10:24 | CT ---
EXAM DATE: 02/13/18 PATIENT'S AGE: 67 Patient: MERA WILEY Facility: [place], [place] Site . Site : 1950 Study: CT Head [id number]/17/2018 8:42:36 PM Ordering Physician: Doctor Aguilera Final Report: INDICATION: Fall today, loss of consciousness. History of brain cancer. TECHNIQUE: CT head without i.v. contrast. COMPARISON: Comparison brain MRI dated 11/14/2016. FINDINGS: Moderate degree white matter low attenuation. Likely decreased size of cystic mass in the right frontal lobe near the vertex, series 201, image 39. This mass noted on earlier MRI on series 601, image 269. Coarse calcifications in the left frontal lobe, series 201, image 34. No parenchymal, intraventricular, or subarachnoid hemorrhage. Slightly increased caliber of lateral ventricles, consider sequela of mildly progressive atrophy and presumed posttreatment changes. No acute fracture of the calvarium. Left mastoid effusion. Right mastoid air cells clear. IMPRESSION: 1. No acute intracranial hemorrhage or fracture. 2. Multiple intracranial enhancing lesions better demonstrated on prior brain MRI. 3. Moderate low attenuation involving the white matter, likely slightly increased from October 2016 study with mildly increased caliber of lateral ventricles. Consider post treatment changes and mildly progressive atrophy. 4. Left mastoid effusion. Dictated by Yoandy Corea MD @ 02/13/2018 9:36:53 PM Please note that all CT scans at this facility use dose modulation, iterative reconstruction, and/or weight-based dosing when appropriate to reduce radiation dose to as low as reasonably achievable. Dictated by: Yoandy Corea MD @ 02/13/2018 21:37:02 (Electronic Signature) Report Signed by Proxy. [facility]
== END 2018-02-13 22:15 | disposition other institution (70) ==
LOC: MW.ED 20:08
DX: S82.841A Displaced bimalleolar fracture of right lower leg, initial encounter for closed fracture (principal); S82.431A Displaced oblique fracture of shaft of right fibula, initial encounter for closed fracture; S82.51XA Displaced fracture of medial malleolus of right tibia, initial encounter for closed fracture; W07.XXXA Fall from chair, initial encounter
CPT/HCPCS: 36415; 70450; 70450-26; 73610-26-RT; 73610-RT; 80053; 84484; 85025; 85610; 93005; 99283; 99285-25

== ENCOUNTER 2018-07-03 10:28 | Inpatient (IN) | payer MEDICARE, BC ==
--- NOTE | 2018-07-03 10:34 | EDM.PDOC ---
ED HPI GENERAL MEDICAL PROBLEM - General Stated Complaint: WEAKNESS Time Seen by Provider: 07/03/18 10:29 Source of Information: Reports: Patient History Limitations: Reports: No Limitations - History of Present Illness INITIAL COMMENTS - FREE TEXT/NARRATIVE: HISTORY AND PHYSICAL: Stroke code was called upon patient arrival at History of present illness: Patient is a 67-year-old female who presents to the emergency room with complaints of generalized weakness and abdominal pain. The significant other states that she recently was diagnosed with a lesion to her right kidney, metastasis from her lung cancer. States since that time she has had some intermittent abdominal pain, nausea and generalized weakness. Denies any fever, chills, chest pain, shortness of breath or cough. Denies any vomiting, diarrhea , constipation, or dysuria. Patient has a history of small cell lung cancer (Stage 4) with metastasis to the brain and recently the kidney. She does receive routine chemotherapy, last treatment 2 weeks ago. Has a history of anemia (secondary to chemotherapy), pneumonia, PE, DVT, renal failure, and hypothyroidism. Review of systems: As per history of present illness and below otherwise all systems reviewed and negative. Past medical history: As per history of present illness and as reviewed below otherwise noncontributory. Surgical history: As per history of present illness and as reviewed below otherwise noncontributory. Social history: No reported history of drug or alcohol abuse. Family history: As per history of present illness and as reviewed below otherwise noncontributory. Physical exam: General: Well-developed and well-nourished 67-year-old female. Alert and disorientated to date. Appears flat but in no acute distress. HEENT: Atraumatic, normocephalic, pupils equal and reactive bilaterally, negative for conjunctival pallor or scleral icterus, mucous membranes moist, throat clear, neck supple, nontender, trachea midline. No drooling or trismus noted. No meningeal signs Lungs: Diminished throughout, breath sounds equal bilaterally, chest nontender. Dry cough noted. Heart: S1S2, regular rate and rhythm without overt murmur Abdomen: Soft, nondistended, nontender. Negative for masses or hepatosplenomegaly. Negative for costovertebral tenderness. Pelvis: Stable nontender. Genitourinary: Deferred. Rectal: Deferred. Skin: Intact, warm, dry. No lesions or rashes noted. Extremities: Atraumatic, moves all per self, negative for cords or calf pain. Neurovascular unremarkable. Neuro: Awake, alert, oriented. Cranial nerves II through XII unremarkable. Cerebellum unremarkable. Motor and sensory unremarkable throughout. Exam nonfocal. Notes: 02/13/2018: Patient was seen at our facility for a right ankle bimalleolus fracture and elevated troponin. Head CT shows no acute intracranial hemorrhage or fracture. There are multiple intracranial lesions noted. She was ultimately transferred to [facility] in [place]. reports that she was told that the troponin was elevated due to her chemo treatment; did not have [place]. 06/23/2018: CT of the abdomen and pelvis shows a new finding of a 4.4 x 3.4 cm adrenal mass, consistent with metastasis. NIH: 5 (right sided weakness). Today's bedside glucose is 203. Patient chronically has been having generalized weakness. states "It goes back and forth from her left to her right". But states overall "shes just going down hill fast". Today she does have some mild right sided weakness. Sounds like this is acute on chronic weakness. 1054: Dr Packer called with head CT findings: no acute findings. No acute findings with the chest xray. EKG shows NSR with rate of 90, no acute findings. Labs show low Hgb 9.6 (L), Platelets 97 (L), Troponin 0.06 (H), BUN 35 (H), Creat 1.1 (H) and TSH 16.48 (H). Patient was made aware of her abnormal lab values. She denies any chest pain, shortness of breath, diaphoresis or any supportive symptoms of cardiac-related issues. I did offer her for transfer to [facility] to due to the elevated troponin, patient and family members declined. They're requesting to stay at our facility. They're aware that we do not have cardiology on staff. Dr. Connell was consulted on this case and agreeable to keeping this patient for observation with telemetry. Diagnostics: CBC, CMP, Troponin, EKG, PT/INR, Chest X-ray, Head CT without contrast, bedside glucose, NIH/Neuro Check Therapeutics: Saline lock Impression: Weakness Elevated Troponin Hypothyroidism Anemia Plan: Observation admission to Med/Surg with Telemetry Definitive disposition and diagnosis as appropriate pending reevaluation and review of above. - Related Data Allergies Allergy/AdvReac Type Severity Reaction Status Date / Time No Known Allergies Allergy Verified 07/03/18 10:34 Home Meds: Home Meds Carvedilol 6.25 mg PO BID 10/08/16 [History] Levothyroxine Sodium 100 mcg PO DAILY 04/04/17 [History] Magnesium Oxide 800 mg PO TID 04/04/17 [History] Omeprazole 20 mg PO ACBREAKFAST 04/04/17 [History] Multivitamins [Childrens Chewable Vitamin] 0 mg PO DAILY 11/26/17 [History] Warfarin [Coumadin] 7.5 mg PO ASDIRECTED 11/26/17 [History] Albuterol Sulfate [Proair Hfa] 1 - 2 puff INH ASDIRECTED 07/03/18 [History] predniSONE [Prednisone] 5 mg PO DAILY 07/03/18 [History] Past Medical History HEENT History: Reports: Impaired Vision Other HEENT History: wears glasses sometimes Cardiovascular History: Reports: Hypertension Other Cardiovascular History: not currently taking medication Respiratory History: Reports: Other (See Below) Other Respiratory History: 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 Gastrointestinal History: Reports: GERD Genitourinary History: Reports: Other (See Below) Other Genitourinary History: Renal failure 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: 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 History: Reports: Fracture Other 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 History: fx left ankle Neurological History: Reports: Vertigo, Other (See Below) Other Neuro History: dizziness; Lung mets to the brain Psychiatric History: Reports: None Endocrine/Metabolic History: Reports: Hypothyroidism Hematologic History: Reports: None Other Hematologic History: son states her blood has been slow to clot recently Immunologic History: Reports: None Oncologic (Cancer) History: Reports: Lung Other Oncologic History: lung cancer is metastisized to brain Dermatologic History: Reports: None - Infectious Disease History Infectious Disease History: Reports: Chicken Pox - Past Surgical History HEENT Surgical History: Reports: None Cardiovascular Surgical History: Reports: Other (See Below) Other Cardiovascular Surgeries/Procedures: portacath Respiratory Surgical History: Reports: None Female Surgical History: Reports: None 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 Surgical History: Reports: None Oncologic Surgical History: Reports: Other (See Below) Social & Family History - Family History Family Medical History: Noncontributory - Caffeine Use Caffeine Use: Reports: Soda - Living Situation & Occupation Living situation: Reports: , with Family ED ROS GENERAL - Review of Systems Review Of Systems: ROS reveals no pertinent complaints other than HPI. ED EXAM, GENERAL - Physical Exam Exam: See Below (See dictation) Course - Vital Signs Last Recorded V/S: Last Vital Signs Temp 98.1 F 07/03/18 10:35 Pulse 70 07/03/18 11:35 Resp 16 07/03/18 11:35 BP 94/55 L 07/03/18 11:35 Pulse Ox 90 L 07/03/18 11:35 - Orders/Labs/Meds Orders: Active Orders 24 hr Category Date Time Status Admission Status [Patient Status] [ADT] Stat ADT 07/03/18 12:25 Ordered Assess Neurological Status [RC] ASDIRECTED Care 07/03/18 10:35 Active Blood Glucose Check, Bedside [RC] STAT Care 07/03/18 10:35 Active Cardiac Monitoring [RC] . DIRECTED Care 07/03/18 10:35 Active EKG Documentation Completion [RC] STAT Care 07/03/18 10:35 Active Height and Weight [RC] UPON Care 07/03/18 10:35 Active Initiate Acute Stroke Protocol [RC] STAT Care 07/03/18 10:35 Active NIH Stroke Scale [RC] ASDIRECTED Care 07/03/18 10:35 Active Oxygen Therapy [RC] ASDIRECTED Care 07/03/18 10:35 Active RT Aerosol Therapy [RC] ASDIRECTED Care 07/03/18 11:43 Active UA W/MICROSCOPIC [URIN] Stat Lab 07/03/18 11:07 Ordered Labs: Laboratory Tests 07/03/18 07/03/18 07/03/18 Range/Units 11:10 11:10 11:10 WBC 0.17 L (4.0-11.0) K/uL RBC 3.41 L (4.30-5.90) M/uL Hgb 9.6 L (12.0-16.0) g/dL Hct 30.3 L (36.0-46.0) % MCV 88.9 (80.0-98.0) fL MCH 28.2 (27.0-32.0) pg MCHC 31.7 (31.0-37.0) g/dL RDW Std Deviation 67.1 H (28.0-62.0) fl RDW Coeff of Caleb 21 H (11.0-15.0) % Plt Count 97 L (150-400) K/uL MPV 9.00 (7.40-12.00) fL Nucleated RBC % 0.0 /100WBC Nucleated RBCs # 0 K/uL INR 2.58 APTT 83.7 H (18.6-31.3) SEC Sodium 141 (136-145) mmol/L Potassium 4.3 (3.5-5.1) mmol/L Chloride 105 (98-107) mmol/L Carbon Dioxide 26.9 (21.0-32.0) mmol/L BUN 35 H (7.0-18.0) mg/dL Creatinine 1.1 H (0.6-1.0) mg/dL Est Cr Clr Drug Dosing 44.03 mL/min Estimated GFR (MDRD) 49.8 ml/min Glucose 271 H (74-106) mg/dL Calcium 8.5 (8.5-10.1) mg/dL Total Bilirubin 0.8 (0.2-1.0) mg/dL AST 13 L (15-37) IU/L ALT 29 (14-63) IU/L Alkaline Phosphatase 53 (46-116) U/L Troponin I 0.060 H* (0.000-0.056) ng/mL Total Protein 5.9 L (6.4-8.2) g/dL Albumin 2.6 L (3.4-5.0) g/dL Globulin 3.3 (2.0-3.5) g/dL Albumin/Globulin Ratio 0.8 L (1.3-2.8) TSH 3rd Generation 16.48 H (0.36-3.74) uIU/mL Meds: Medications Discontinued Medications Generic Name Dose Route Start Last Admin Trade Name Freq PRN Reason Stop Dose Admin Albuterol/Ipratropium 3 ml 07/03/18 11:43 07/03/18 11:54 Duoneb 3.0-0.5 Mg/3 Ml NEB 07/03/18 11:44 3 ml ONETIME ONE Administration Sodium Chloride 500 mls @ 999 mls/hr 07/03/18 11:13 07/03/18 11:15 Normal Saline IV 07/03/18 11:43 999 mls/hr .BOLUS ONE Administration Departure - Departure Time of Disposition: 12:32 Disposition: Refer to Observation Clinical Impression: Weakness, Elevated troponin Hypothyroid Qualifiers: Hypothyroidism type: unspecified Qualified Code(s): E03.9 - Hypothyroidism, unspecified Anemia Qualifiers: Anemia type: unspecified type Qualified Code(s): D64.9 - Anemia, unspecified - Discharge Information Referrals: Gio Hernandez MD [Primary Care Provider] - - My Orders Last 24 Hours: My Active Orders 07/03/18 10:35 Assess Neurological Status [RC] ASDIRECTED Blood Glucose Check, Bedside [RC] STAT Cardiac Monitoring [RC] . DIRECTED EKG Documentation Completion [RC] STAT Height and Weight [RC] UPON Initiate Acute Stroke Protocol [RC] STAT NIH Stroke Scale [RC] ASDIRECTED Oxygen Therapy [RC] ASDIRECTED 07/03/18 11:07 UA W/MICROSCOPIC [URIN] Stat 07/03/18 11:43 RT Aerosol Therapy [RC] ASDIRECTED 07/03/18 12:25 Admission Status [Patient Status] [ADT] Stat - Assessment/Plan Last 24 Hours: My Active Orders 07/03/18 10:35 Assess Neurological Status [RC] ASDIRECTED Blood Glucose Check, Bedside [RC] STAT Cardiac Monitoring [RC] . DIRECTED EKG Documentation Completion [RC] STAT Height and Weight [RC] UPON Initiate Acute Stroke Protocol [RC] STAT NIH Stroke Scale [RC] ASDIRECTED Oxygen Therapy [RC] ASDIRECTED 07/03/18 11:07 UA W/MICROSCOPIC [URIN] Stat 07/03/18 11:43 RT Aerosol Therapy [RC] ASDIRECTED 07/03/18 12:25 Admission Status [Patient Status] [ADT] Stat
--- NOTE | 2018-07-03 10:58 | CT ---
EXAMINATION: Non contrast CT head. Coronal and sagittal reformats. HISTORY: Stroke code FINDINGS: No evidence of intra or extra axial hemorrhage, mass, midline shift, hydrocephalus or edema. No hyp oattenuation changes in the major vascular territories to suggest acute infarct. There are multiple areas of focal encephalomalacia noted, not significantly changed. Prominent confluent periventricular and subcortical white matter hypodensities with generalized atrophy. Stable small parenchymal calcifications noted bilaterally. No evidence of substantial vascular calcif ications. Desiccation of the left mastoid air cells again noted. Paranasal sinuses and middle ears are otherwis e clear. Pituitary fossa appears unremarkable. Orbits and globes are symmetric. Calvarium is intact. No evidence of skull fracture. IMPRESSION: 1. No acute intracranial findings. 2. Moderate white matter hypodensities, likely small vessel ischemic changes versus radiation. 3. Stable small focal areas of encephalomalacia bilaterally. 4. Mild generalized atrophy. 5. Stable opacification of left mastoid air cells. Findings were called to the ER at 10:55 AM.
[2018-07-03] MEDS ORDERED: Sodium Chloride 0.9% 1,000 ML IV ONE (11:01)
--- NOTE | 2018-07-03 11:04 | CR ---
EXAMINATION: Portable chest radiograph. HISTORY: Stroke code. FINDINGS: The trachea is midline. The cardiomediastinal silhouette is within normal limits. No pulmonary infilt rates, effusions or pneumothorax. Left perihilar scarring. Left-sided andrea catheter is noted. Calcif ied granuloma within the right apex. Old right-sided rib fractures noted. IMPRESSION: No acute cardiopulmonary process.
[2018-07-03] MEDS ORDERED: Sodium Chloride 0.9% 500 ML IV ONE (11:13)
[2018-07-03] MEDS ORDERED: Albuterol/Ipratropium 3.0-0.5 MG/3 ML Neb Soln NEB ONE (11:43)
[2018-07-03] MEDS ORDERED: Ondansetron 4 MG/2 ML SDV IVPUSH PRN (13:45)
[2018-07-03] MEDS ORDERED: Ibuprofen 600 MG Tab PO PRN (13:45)
[2018-07-03] MEDS ORDERED: oxyCODONE 5 MG Tab PO PRN (13:45)
[2018-07-03] MEDS ORDERED: Temazepam 15 MG Cap PO PRN (13:45)
[2018-07-03] MEDS ORDERED: Ondansetron 4 MG Tab.DIS PO PRN (13:45)
[2018-07-03] MEDS ORDERED: Docusate Sodium 100 MG Cap PO PRN (13:45)
[2018-07-03] MEDS ORDERED: Polyethylene Glycol 3350 Powder 17 GM Packet PO PRN (13:45)
[2018-07-03] MEDS: Warfarin 5 MG Tab PO SCH (15:00)
[2018-07-03] MEDS: Sodium Chloride 0.9% 1,000 ML IV SCH (16:26)
--- NOTE | 2018-07-03 17:11 | PCM.HP ---
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 The patient has been getting chemotherapy and her last round of chemo was approximately 2 weeks ago. Per family member, the patient has been bedridden for the past 2-3 years unable to ambulate on her own since brain mets has affected her lower extremities. Patient is complaining of generalized abdominal pain. States she had a BM approximately 2 days ago. No blood detected. She denies any headaches, change in vision, cough, dyspnea, chest pain. No dysuria or diarrhea. No nausea or vomiting. Bilateral Abdomen Pain Score (Numeric/FACES): 10 - Related Data Allergies/Adverse Reactions: Allergies Allergy/AdvReac Type Severity Reaction Status Date / Time No Known Allergies Allergy Verified 07/03/18 10:34 Home Medications: Home Meds Carvedilol 6.25 mg PO BID 10/08/16 [History] Levothyroxine Sodium 100 mcg PO DAILY 04/04/17 [History] Magnesium Oxide 800 mg PO TID 04/04/17 [History] Omeprazole 20 mg PO ACBREAKFAST 04/04/17 [History] Multivitamins [Childrens Chewable Vitamin] 0 mg PO DAILY 11/26/17 [History] Warfarin [Coumadin] 7.5 mg PO TUTHSA@1800 11/26/17 [History] Albuterol Sulfate [Proair Hfa] 1 - 2 puff INH ASDIRECTED 07/03/18 [History] Warfarin [Coumadin] 5 mg PO SUMOWEFR@1800 07/03/18 [History] predniSONE [Prednisone] 5 mg PO DAILY 07/03/18 [History] Past Medical History HEENT History: Reports: Impaired Vision Other HEENT History: wears glasses sometimes Cardiovascular History: Reports: Hypertension Other Cardiovascular History: not currently taking medication Respiratory History: Reports: Other (See Below) Other Respiratory History: 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 Gastrointestinal History: Reports: GERD Genitourinary History: Reports: Other (See Below) Other Genitourinary History: Renal failure YARD JACKER History: Reports: 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 History: Reports: Fracture Other 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 History: fx left ankle Neurological History: Reports: Speech Problems, Vertigo, Other (See Below) Other Neuro History: dizziness; Lung mets to the brain Psychiatric History: Reports: None Endocrine/Metabolic History: Reports: Hypothyroidism Hematologic History: Reports: None Other Hematologic History: On warfarin. Immunologic History: Reports: None Oncologic (Cancer) History: Reports: Brain, Lung Other Oncologic History: Small Cell lung cancer with mets to brain Dermatologic History: Reports: None - Infectious Disease History Infectious Disease History: Reports: Chicken Pox - Past Surgical History HEENT Surgical History: Reports: None Cardiovascular Surgical History: Reports: Other (See Below) Other Cardiovascular Surgeries/Procedures: portacath Respiratory Surgical History: Reports: None GI Surgical History: Reports: None Female Surgical History: Reports: None Endocrine Surgical History: Reports: None Neurological Surgical History: Reports: None 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 Surgical History: Reports: None Oncologic Surgical History: Reports: None Social & Family History - Family History Family Medical History: Noncontributory - Tobacco Use Smoking Status *Q: Former Smoker Used Tobacco, but Quit: Yes Month/Year Tobacco Last Used: 2014 - Caffeine Use Caffeine Use: Reports: None - Recreational Drug Use Recreational Drug Use: No - Living Situation & Occupation Living situation: Reports: , with Family H&P Review of Systems - Review of Systems: Review Of Systems: ROS reveals no pertinent complaints other than HPI. Exam - Exam Exam: See Below - Vital Signs Vital Signs: Last Vital Signs Temp 36.7 C 07/03/18 14:00 Pulse 76 07/03/18 14:00 Resp 16 07/03/18 14:00 BP 111/64 07/03/18 14:00 Pulse Ox 98 07/03/18 14:00 Weight: 74.843 kg - Exam General: Alert, Oriented HEENT: Conjunctiva Clear, Mucosa Moist & [place], Posterior Pharynx Clear, Pupils Equal, Pupils Reactive Lungs: Clear to Auscultation Cardiovascular: Regular Rate, Regular Rhythm GI/Abdominal Exam: Normal Bowel Sounds, Soft, Non-Tender, No Distention Extremities: Non-Tender, No Pedal Edema Skin: Warm, Dry Neurological: Cranial Nerves Intact, Other (patient unable to move her right leg.) - Patient Data Lab Results Last 24 hrs: Laboratory Results - last 24 hr 07/03/18 07/03/18 07/03/18 Range/Units 11:10 11:10 11:10 WBC 0.17 L (4.0-11.0) K/uL RBC 3.41 L (4.30-5.90) M/uL Hgb 9.6 L (12.0-16.0) g/dL Hct 30.3 L (36.0-46.0) % MCV 88.9 (80.0-98.0) fL MCH 28.2 (27.0-32.0) pg MCHC 31.7 (31.0-37.0) g/dL RDW Std Deviation 67.1 H (28.0-62.0) fl RDW Coeff of Caleb 21 H (11.0-15.0) % Plt Count 97 L (150-400) K/uL MPV 9.00 (7.40-12.00) fL Nucleated RBC % 0.0 /100WBC Nucleated RBCs # 0 K/uL INR 2.58 APTT 83.7 H (18.6-31.3) SEC Sodium 141 (136-145) mmol/L Potassium 4.3 (3.5-5.1) mmol/L Chloride 105 (98-107) mmol/L Carbon Dioxide 26.9 (21.0-32.0) mmol/L BUN 35 H (7.0-18.0) mg/dL Creatinine 1.1 H (0.6-1.0) mg/dL Est Cr Clr Drug Dosing 44.03 mL/min Estimated GFR (MDRD) 49.8 ml/min Glucose 271 H (74-106) mg/dL Calcium 8.5 (8.5-10.1) mg/dL Total Bilirubin 0.8 (0.2-1.0) mg/dL AST 13 L (15-37) IU/L ALT 29 (14-63) IU/L Alkaline Phosphatase 53 (46-116) U/L Troponin I 0.060 H* (0.000-0.056) ng/mL Total Protein 5.9 L (6.4-8.2) g/dL Albumin 2.6 L (3.4-5.0) g/dL Globulin 3.3 (2.0-3.5) g/dL Albumin/Globulin Ratio 0.8 L (1.3-2.8) TSH 3rd Generation 16.48 H (0.36-3.74) uIU/mL Urine Color Urine Appearance Urine pH (5.0-8.0) Ur Specific [place] (1.001-1.035) Urine Protein (NEGATIVE) mg/dL Urine Glucose (UA) (NEGATIVE) mg/dL Urine Ketones (NEGATIVE) mg/dL Urine Occult Blood (NEGATIVE) Urine Nitrite (NEGATIVE) Urine Bilirubin (NEGATIVE) Urine Urobilinogen (<2.0) EU/dL Ur Leukocyte Esterase (NEGATIVE) 07/03/18 Range/Units 16:50 WBC (4.0-11.0) K/uL RBC (4.30-5.90) M/uL Hgb (12.0-16.0) g/dL Hct (36.0-46.0) % MCV (80.0-98.0) fL MCH (27.0-32.0) pg MCHC (31.0-37.0) g/dL RDW Std Deviation (28.0-62.0) fl RDW Coeff of Caleb (11.0-15.0) % Plt Count (150-400) K/uL MPV (7.40-12.00) fL Nucleated RBC % /100WBC Nucleated RBCs # K/uL INR APTT (18.6-31.3) SEC Sodium (136-145) mmol/L Potassium (3.5-5.1) mmol/L Chloride (98-107) mmol/L Carbon Dioxide (21.0-32.0) mmol/L BUN (7.0-18.0) mg/dL Creatinine (0.6-1.0) mg/dL Est Cr Clr Drug Dosing mL/min Estimated GFR (MDRD) ml/min Glucose (74-106) mg/dL Calcium (8.5-10.1) mg/dL Total Bilirubin (0.2-1.0) mg/dL AST (15-37) IU/L ALT (14-63) IU/L Alkaline Phosphatase (46-116) U/L Troponin I (0.000-0.056) ng/mL Total Protein (6.4-8.2) g/dL Albumin (3.4-5.0) g/dL Globulin (2.0-3.5) g/dL Albumin/Globulin Ratio (1.3-2.8) TSH 3rd Generation (0.36-3.74) uIU/mL Urine Color YELLOW Urine Appearance CLEAR Urine pH 7.5 (5.0-8.0) Ur Specific [place] 1.020 (1.001-1.035) Urine Protein 30 (NEGATIVE) mg/dL Urine Glucose (UA) 100 H (NEGATIVE) mg/dL Urine Ketones NEGATIVE (NEGATIVE) mg/dL Urine Occult Blood NEGATIVE (NEGATIVE) Urine Nitrite NEGATIVE (NEGATIVE) Urine Bilirubin NEGATIVE (NEGATIVE) Urine Urobilinogen 1.0 (<2.0) EU/dL Ur Leukocyte Esterase NEGATIVE (NEGATIVE) Result Diagrams: 07/03/18 11:10 07/03/18 11:10 Problem List Initiated/Reviewed/Updated: Yes Orders Last 24hrs: Active Orders 24 hr Category Date Time Status Admission Status [Patient Status] [ADT] Stat ADT 07/03/18 12:25 Active Patient Status [ADT] Routine ADT 07/03/18 13:45 Active Bedrest Bedside Commode [RC] ASDIRECTED Care 07/03/18 13:45 Active Oxygen Therapy [RC] PRN Care 07/03/18 13:45 Active RT Aerosol Therapy [RC] ASDIRECTED Care 07/03/18 11:43 Active Telemetry Monitoring [Cardiac Monitoring] [RC] . Care 07/03/18 13:05 Active DIRECTED VTE/DVT Education [RC] PER UNIT ROUTINE Care 07/03/18 13:45 Active Vital Signs [RC] Q4H Care 07/03/18 13:45 Active Neutropenic [DIET] Diet 07/03/18 Dinner Active INR,PT,PROTHROMBIN TIME [COAG] AM Lab 07/04/18 05:11 Ordered INR,PT,PROTHROMBIN TIME [COAG] AM Lab 07/05/18 05:11 Ordered INR,PT,PROTHROMBIN TIME [COAG] AM Lab 07/06/18 05:11 Ordered TROPONIN I [CHEM] Q8H Lab 07/03/18 18:00 Ordered TROPONIN I [CHEM] Q8H Lab 07/04/18 02:00 Ordered UA W/MICROSCOPIC [URIN] Routine Lab 07/03/18 16:50 Results Acetaminophen [Tylenol] Med 07/03/18 13:45 Active 650 mg PO Q4H PRN Carvedilol [Coreg] Med 07/03/18 21:00 Active 6.25 mg PO BID Docusate Sodium [Colace] Med 07/03/18 13:45 Active 100 mg PO BID PRN Ibuprofen [Motrin] Med 07/03/18 13:45 Active 600 mg PO Q6H PRN Levothyroxine [Synthroid] Med 07/04/18 07:30 Active 100 mcg PO ACBREAKFAST Omeprazole Med 07/04/18 07:30 Active 20 mg PO ACBREAKFAST Ondansetron [Zofran ODT] Med 07/03/18 13:45 Active 4 mg PO Q4H PRN Ondansetron [Zofran] Med 07/03/18 13:45 Active 4 mg IVPUSH Q4H PRN Polyethylene Glycol 3350 [MiraLAX] Med 07/03/18 13:45 Active 17 gm PO DAILY PRN Sodium Chloride 0.9% [Normal Saline] 1,000 ml Med 07/03/18 13:45 Active IV ASDIRECTED Temazepam [Restoril] Med 07/03/18 13:45 Active 15 mg PO BEDTIME PRN Warfarin [Coumadin] Med 07/04/18 14:00 Active 5 mg PO SuMoWeFr@1400 Warfarin [Coumadin] Med 07/03/18 14:00 Active 7.5 mg PO TuThSa@1400 oxyCODONE Med 07/03/18 13:45 Active 5 mg PO Q4H PRN predniSONE Med 07/04/18 09:00 Active 5 mg PO DAILY Sequential Compression Device [OM.PC] Per Unit Routine Oth 07/03/18 13:48 Ordered Resuscitation Status Routine Resus Stat 07/03/18 13:45 Ordered Medication Orders Acetaminophen (Tylenol) 650 mg PO Q4H PRN PRN Reason: Pain (Mild 1-3)/fever Carvedilol (Coreg) 6.25 mg PO BID MARTINEZ Docusate Sodium (Colace) 100 mg PO BID PRN PRN Reason: Constipation Sodium Chloride (Normal Saline) 1,000 mls @ 100 mls/hr IV ASDIRECTED MARTINEZ Last Admin: 07/03/18 16:26 Dose: 100 mls/hr Ibuprofen (Motrin) 600 mg PO Q6H PRN PRN Reason: Pain (mild 1-3) Levothyroxine Sodium (Synthroid) 100 mcg PO ACBREAKFAST MARTINEZ Omeprazole (Omeprazole) 20 mg PO ACBREAKFAST [facility] Ondansetron HCl (Zofran Odt) 4 mg PO Q4H PRN PRN Reason: nausea, able to take PO Ondansetron HCl (Zofran) 4 mg IVPUSH Q4H PRN PRN Reason: Nausea Oxycodone HCl (Oxycodone) 5 mg PO Q4H PRN PRN Reason: Pain (moderate 4-6) Polyethylene Glycol (Miralax) 17 gm PO DAILY PRN PRN Reason: Constipation Prednisone (Prednisone) 5 mg PO DAILY [facility] Temazepam (Restoril) 15 mg PO BEDTIME PRN PRN Reason: Sleep Warfarin Sodium (Coumadin) 7.5 mg PO TuThSa@1400 [facility] Last Admin: 07/03/18 15:00 Dose: 7.5 mg Warfarin Sodium (Coumadin) 5 mg PO SuMoWeFr@1400 [facility] Assessment/Plan Comment:: Assessment: 1. Generalized weakness 2. Elevated troponin 3. Hypothyroidism 4. Hyperglycemia 5. Chronic kidney disease, stage III 6. 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 Admit as observation to the medical floor. 2. Vitals, I/O's per floor routine 3. Activity: bedrest 4. Diet: regular diet 5. Code status: FULL CODE 1. Generalized weakness- multifactorial, likely secondary to her cancer and chemotherapy. Will hydrate and monitor. Order PT/OT. 2. Pancytopenia- 2/2 chemotherapy. Patient is severely neutropenic. So i've ordered neutropenic precautions and diet. 3. Elevated troponin. Initial troponin of 0.06. Will continue to trend serial troponins. 4. Hyperglycemia- Will order HgA1c and monitor her blood glucose. Ordered ISS for now. 5. Chronic kidney disease,stage 3. I will continue with maintenance fluids for now and monitor her kidney function. 6. Hypothyroidism. TSH of 16. I suspect that this may be reactive. Will continue current home dose of synthroid. Patient will need to check her TSH as outpatient after discharge. 7. PMH pumonary embolism- will continue her home dose of warfarin and check daily INR. Dispo: 1-2 days.
[2018-07-03] MEDS: Acetaminophen 325 MG Tab PO PRN (19:43)
[2018-07-03] MEDS: Carvedilol 6.25 MG Tab PO SCH (20:12)
[2018-07-03] MEDS ORDERED: Albuterol 6.7 GM Inhaler INH PRN (22:28)
[2018-07-04] MEDS: Sodium Chloride 0.9% 1,000 ML IV SCH ×3 (01:42→23:27)
[2018-07-04 05:47] LABS: CHLORIDE,CL 107 mmol/L (98-107); SODIUM,NA 139 mmol/L (136-145)
[2018-07-04] MEDS ORDERED: Magnesium Sulfate/Water 2 GM in Premix Bag 1 BAG IV ONE (06:52)
[2018-07-04] MEDS: Insulin Aspart 100 Units/ML 3 ML Pen SUBCUT SCH ×3 (07:02→17:58)
[2018-07-04] MEDS: Omeprazole 20 MG Cap.CR PO SCH (07:03)
[2018-07-04] MEDS: Levothyroxine 100 MCG Tab PO SCH (07:03)
[2018-07-04] MEDS: Carvedilol 6.25 MG Tab PO SCH ×2 (08:28→20:27)
[2018-07-04] MEDS: predniSONE 5 MG Tab PO SCH (08:28)
[2018-07-04] MEDS ORDERED: Warfarin 5 MG Tab PO SCH (14:00)
--- NOTE | 2018-07-04 16:47 | PCM.PN ---
- General Info Date of Service: 07/04/18 Subjective Update: The patient did well overnight. Afebrile. States she feels somewhat better. denies any chest pain, shortness of breath. No cough. No dysuria or diarrhea. - Patient Data Vitals - Most Recent: Last Vital Signs Temp 37.4 C 07/04/18 15:32 Pulse 84 07/04/18 15:32 Resp 20 07/04/18 15:32 BP 105/62 07/04/18 15:32 Pulse Ox 94 L 07/04/18 15:32 Weight - Most Recent: 74.843 kg I&O - Last 24 Hours: Intake & Output 07/04/18 07/04/18 07/04/18 06:59 14:59 22:59 Intake Total 1380 1908 Output Total 0 0 Balance 1380 1908 Lab Results Last 24 Hours: Laboratory Results - last 24 hr 07/03/18 07/03/18 07/04/18 Range/Units 16:50 18:03 01:50 WBC (4.0-11.0) K/uL RBC (4.30-5.90) M/uL Hgb (12.0-16.0) g/dL Hct (36.0-46.0) % MCV (80.0-98.0) fL MCH (27.0-32.0) pg MCHC (31.0-37.0) g/dL RDW Std Deviation (28.0-62.0) fl RDW Coeff of Caleb (11.0-15.0) % Plt Count (150-400) K/uL MPV (7.40-12.00) fL Neut % (Auto) (48.0-80.0) % Lymph % (Auto) (16.0-40.0) % [place] % (Auto) (0.0-15.0) % Eos % (Auto) (0.0-7.0) % Baso % (Auto) (0.0-1.5) % Neut # (Auto) (1.4-5.7) K/uL Lymph # (Auto) (0.6-2.4) K/uL [place] # (Auto) (0.0-0.8) K/uL Eos # (Auto) (0.0-0.7) K/uL Baso # (Auto) (0.0-0.1) K/uL Nucleated RBC % /100WBC Nucleated RBCs # K/uL INR Sodium (136-145) mmol/L Potassium (3.5-5.1) mmol/L Chloride (98-107) mmol/L Carbon Dioxide (21.0-32.0) mmol/L BUN (7.0-18.0) mg/dL Creatinine (0.6-1.0) mg/dL Est Cr Clr Drug Dosing mL/min Estimated GFR (MDRD) ml/min Glucose (74-106) mg/dL POC Glucose (60-110) mg/dL Calcium (8.5-10.1) mg/dL Magnesium (1.8-2.4) mg/dL Total Bilirubin (0.2-1.0) mg/dL AST (15-37) IU/L ALT (14-63) IU/L Alkaline Phosphatase (46-116) U/L Troponin I < 0.050 < 0.050 (0.000-0.056) ng/mL Total Protein (6.4-8.2) g/dL Albumin (3.4-5.0) g/dL Globulin (2.0-3.5) g/dL Albumin/Globulin Ratio (1.3-2.8) Urine Color YELLOW Urine Appearance CLEAR Urine pH 7.5 (5.0-8.0) Ur Specific [place] 1.020 (1.001-1.035) Urine Protein 30 (NEGATIVE) mg/dL Urine Glucose (UA) 100 H (NEGATIVE) mg/dL Urine Ketones NEGATIVE (NEGATIVE) mg/dL Urine Occult Blood NEGATIVE (NEGATIVE) Urine Nitrite NEGATIVE (NEGATIVE) Urine Bilirubin NEGATIVE (NEGATIVE) Urine Urobilinogen 1.0 (<2.0) EU/dL Ur Leukocyte Esterase NEGATIVE (NEGATIVE) Urine RBC 0-1 (0-2/HPF) Urine WBC 0-1 (0-5/HPF) Ur Epithelial Cells OCCASIONAL (NONE-FEW) Amorphous Sediment LIGHT (NEGATIVE) Urine Bacteria FEW (NEGATIVE) Urine Mucus LIGHT (NONE-MOD) 07/04/18 07/04/18 07/04/18 Range/Units 04:40 04:40 04:40 WBC 0.24 L (4.0-11.0) K/uL RBC 2.75 L (4.30-5.90) M/uL Hgb 7.7 L (12.0-16.0) g/dL Hct 24.3 L (36.0-46.0) % MCV 88.4 (80.0-98.0) fL MCH 28.0 (27.0-32.0) pg MCHC 31.7 (31.0-37.0) g/dL RDW Std Deviation 66.6 H (28.0-62.0) fl RDW Coeff of Caleb 21 H (11.0-15.0) % Plt Count 73 L (150-400) K/uL MPV 9.00 (7.40-12.00) fL Neut % (Auto) 4.1 L (48.0-80.0) % Lymph % (Auto) 91.7 H (16.0-40.0) % [place] % (Auto) 0.0 (0.0-15.0) % Eos % (Auto) 4.2 (0.0-7.0) % Baso % (Auto) 0.0 (0.0-1.5) % Neut # (Auto) 0.0 L (1.4-5.7) K/uL Lymph # (Auto) 0.2 L (0.6-2.4) K/uL [place] # (Auto) 0.0 (0.0-0.8) K/uL Eos # (Auto) 0.0 (0.0-0.7) K/uL Baso # (Auto) 0.0 (0.0-0.1) K/uL Nucleated RBC % 0.0 /100WBC Nucleated RBCs # 0 K/uL INR 2.41 Sodium 139 (136-145) mmol/L Potassium 3.5 (3.5-5.1) mmol/L Chloride 107 (98-107) mmol/L Carbon Dioxide 24.4 (21.0-32.0) mmol/L BUN 25 H (7.0-18.0) mg/dL Creatinine 0.7 (0.6-1.0) mg/dL Est Cr Clr Drug Dosing 69.19 mL/min Estimated GFR (MDRD) > 60.0 ml/min Glucose 117 H (74-106) mg/dL POC Glucose (60-110) mg/dL Calcium 7.6 L (8.5-10.1) mg/dL Magnesium 1.7 L (1.8-2.4) mg/dL Total Bilirubin 0.6 (0.2-1.0) mg/dL AST 6 L (15-37) IU/L ALT 25 (14-63) IU/L Alkaline Phosphatase 53 (46-116) U/L Troponin I (0.000-0.056) ng/mL Total Protein 5.1 L (6.4-8.2) g/dL Albumin 2.1 L (3.4-5.0) g/dL Globulin 3.0 (2.0-3.5) g/dL Albumin/Globulin Ratio 0.7 L (1.3-2.8) Urine Color Urine Appearance Urine pH (5.0-8.0) Ur Specific [place] (1.001-1.035) Urine Protein (NEGATIVE) mg/dL Urine Glucose (UA) (NEGATIVE) mg/dL Urine Ketones (NEGATIVE) mg/dL Urine Occult Blood (NEGATIVE) Urine Nitrite (NEGATIVE) Urine Bilirubin (NEGATIVE) Urine Urobilinogen (<2.0) EU/dL Ur Leukocyte Esterase (NEGATIVE) Urine RBC (0-2/HPF) Urine WBC (0-5/HPF) Ur Epithelial Cells (NONE-FEW) Amorphous Sediment (NEGATIVE) Urine Bacteria (NEGATIVE) Urine Mucus (NONE-MOD) 07/04/18 Range/Units 06:31 WBC (4.0-11.0) K/uL RBC (4.30-5.90) M/uL Hgb (12.0-16.0) g/dL Hct (36.0-46.0) % MCV (80.0-98.0) fL MCH (27.0-32.0) pg MCHC (31.0-37.0) g/dL RDW Std Deviation (28.0-62.0) fl RDW Coeff of Caleb (11.0-15.0) % Plt Count (150-400) K/uL MPV (7.40-12.00) fL Neut % (Auto) (48.0-80.0) % Lymph % (Auto) (16.0-40.0) % [place] % (Auto) (0.0-15.0) % Eos % (Auto) (0.0-7.0) % Baso % (Auto) (0.0-1.5) % Neut # (Auto) (1.4-5.7) K/uL Lymph # (Auto) (0.6-2.4) K/uL [place] # (Auto) (0.0-0.8) K/uL Eos # (Auto) (0.0-0.7) K/uL Baso # (Auto) (0.0-0.1) K/uL Nucleated RBC % /100WBC Nucleated RBCs # K/uL INR Sodium (136-145) mmol/L Potassium (3.5-5.1) mmol/L Chloride (98-107) mmol/L Carbon Dioxide (21.0-32.0) mmol/L BUN (7.0-18.0) mg/dL Creatinine (0.6-1.0) mg/dL Est Cr Clr Drug Dosing mL/min Estimated GFR (MDRD) ml/min Glucose (74-106) mg/dL POC Glucose 112 H (60-110) mg/dL Calcium (8.5-10.1) mg/dL Magnesium (1.8-2.4) mg/dL Total Bilirubin (0.2-1.0) mg/dL AST (15-37) IU/L ALT (14-63) IU/L Alkaline Phosphatase (46-116) U/L Troponin I (0.000-0.056) ng/mL Total Protein (6.4-8.2) g/dL Albumin (3.4-5.0) g/dL Globulin (2.0-3.5) g/dL Albumin/Globulin Ratio (1.3-2.8) Urine Color Urine Appearance Urine pH (5.0-8.0) Ur Specific [place] (1.001-1.035) Urine Protein (NEGATIVE) mg/dL Urine Glucose (UA) (NEGATIVE) mg/dL Urine Ketones (NEGATIVE) mg/dL Urine Occult Blood (NEGATIVE) Urine Nitrite (NEGATIVE) Urine Bilirubin (NEGATIVE) Urine Urobilinogen (<2.0) EU/dL Ur Leukocyte Esterase (NEGATIVE) Urine RBC (0-2/HPF) Urine WBC (0-5/HPF) Ur Epithelial Cells (NONE-FEW) Amorphous Sediment (NEGATIVE) Urine Bacteria (NEGATIVE) Urine Mucus (NONE-MOD) Med Orders - Current: Current Medications Acetaminophen (Tylenol) 650 mg PO Q4H PRN PRN Reason: Pain (Mild 1-3)/fever Last Admin: 07/03/18 19:43 Dose: 650 mg Albuterol (Ventolin Hfa) 0 gm INH Q6H PRN PRN Reason: Shortness of Breath Carvedilol (Coreg) 6.25 mg PO BID [facility] Last Admin: 07/04/18 08:28 Dose: 6.25 mg Docusate Sodium (Colace) 100 mg PO BID PRN PRN Reason: Constipation Sodium Chloride (Normal Saline) 1,000 mls @ 100 mls/hr IV ASDIRECTED [facility] Last Admin: 07/04/18 13:11 Dose: 100 mls/hr Insulin Aspart (Novolog) 0 unit SUBCUT TIDAC [facility]; Protocol Last Admin: 07/04/18 13:07 Dose: 3 units Levothyroxine Sodium (Synthroid) 100 mcg PO ACBREAKFAST [facility] Last Admin: 07/04/18 07:03 Dose: 100 mcg Omeprazole (Omeprazole) 20 mg PO ACBREAKFAST [facility] Last Admin: 07/04/18 07:03 Dose: 20 mg Ondansetron HCl (Zofran Odt) 4 mg PO Q4H PRN PRN Reason: nausea, able to take PO Ondansetron HCl (Zofran) 4 mg IVPUSH Q4H PRN PRN Reason: Nausea Oxycodone HCl (Oxycodone) 5 mg PO Q4H PRN PRN Reason: Pain (moderate 4-6) Polyethylene Glycol (Miralax) 17 gm PO DAILY PRN PRN Reason: Constipation Last Admin: 07/03/18 19:43 Dose: 17 gm Prednisone (Prednisone) 5 mg PO DAILY [facility] Last Admin: 07/04/18 08:28 Dose: 5 mg Temazepam (Restoril) 15 mg PO BEDTIME PRN PRN Reason: Sleep Warfarin Sodium (Coumadin) 7.5 mg PO TuThSa@1400 [facility] Last Admin: 07/03/18 15:00 Dose: 7.5 mg Warfarin Sodium (Coumadin) 5 mg PO SuMoWeFr@1400 [facility] Last Admin: 07/04/18 14:34 Dose: 5 mg Discontinued Medications Albuterol (Proventil Hfa) 0 gm INH Q6H PRN PRN Reason: Shortness of Breath Albuterol/Ipratropium (Duoneb 3.0-0.5 Mg/3 Ml) 3 ml NEB ONETIME ONE Stop: 07/03/18 11:44 Last Admin: 07/03/18 11:54 Dose: 3 ml Sodium Chloride (Normal Saline) 500 mls @ 999 mls/hr IV .BOLUS ONE Stop: 07/03/18 11:43 Last Infusion: 07/03/18 11:45 Dose: 125 mls/hr Magnesium Sulfate 2 gm/ Premix 50 mls @ 25 mls/hr IV ONETIME ONE Stop: 07/04/18 08:51 Last Admin: 07/04/18 08:28 Dose: 25 mls/hr Ibuprofen (Motrin) 600 mg PO Q6H PRN PRN Reason: Pain (mild 1-3) - Exam General: Alert, Oriented, Cooperative Lungs: Clear to Auscultation, Normal Respiratory Effort Cardiovascular: Regular Rate GI/Abdominal Exam: Normal Bowel Sounds, Soft, Non-Tender Extremities: Non-Tender, No Pedal Edema Skin: Warm, Dry - Problem List Review Problem List Initiated/Reviewed/Updated: Yes - My Orders Last 24 Hours: My Active Orders 07/03/18 21:00 Carvedilol [Coreg] 6.25 mg PO BID 07/03/18 Dinner Neutropenic [DIET] 07/04/18 07:30 Insulin Aspart [NovoLOG] See Protocol SUBCUT TIDAC Levothyroxine [Synthroid] 100 mcg PO ACBREAKFAST Omeprazole 20 mg PO ACBREAKFAST 07/04/18 09:00 predniSONE 5 mg PO DAILY 07/04/18 09:17 Admission Status [Patient Status] [ADT] Routine 07/05/18 05:11 CBC WITH AUTO DIFF [HEME] AM COMPREHENSIVE METABOLIC PN,CMP [CHEM] AM INR,PT,PROTHROMBIN TIME [COAG] AM 07/06/18 05:11 CBC WITH AUTO DIFF [HEME] AM COMPREHENSIVE METABOLIC PN,CMP [CHEM] AM INR,PT,PROTHROMBIN TIME [COAG] AM - Plan Plan:: 1. Generalized weakness, improving. Likely secondary to her cancer and chemotherapy adverse effects. Will continue to hydrate and monitor. Ordered PT/ OT. 2. Pancytopenia, improving. Secondary to chemotherapy. On neutropenic precautions. 3. Elevated troponin, normalized. No chest pain. 4. Hyperglycemia- Will order HgA1c and monitor her blood glucose. Ordered ISS for now. 5. Chronic kidney disease,stage III. I will continue with maintenance fluids for now and monitor her kidney function. 6. Hypothyroidism. TSH of 16. I suspect that this may be reactive. Will continue current home dose of synthroid. Patient will need to check her TSH as outpatient after discharge. 7. PMH pumonary embolism- will continue her home dose of warfarin and adjust according to INR levels. 8. Hypomagenesemia- replaced with MgS 2 g IV once. Recheck tomorrow. Dispo: [facility] after more improvement.
[2018-07-04] MEDS: Acetaminophen 325 MG Tab PO PRN (18:22)
[2018-07-04] MEDS ORDERED: Benzonatate 100 MG Cap PO PRN (18:40)
[2018-07-05] MEDS: Sodium Chloride 0.9% 1,000 ML IV SCH (03:38)
[2018-07-05] MEDS: Omeprazole 20 MG Cap.CR PO SCH (06:33)
[2018-07-05] MEDS: Levothyroxine 100 MCG Tab PO SCH (06:33)
[2018-07-05] MEDS: Insulin Aspart 100 Units/ML 3 ML Pen SUBCUT SCH ×3 (06:34→17:10)
[2018-07-05 06:58] LABS: CHLORIDE,CL 109 mmol/L (98-107); SODIUM,NA 141 mmol/L (136-145)
[2018-07-05] MEDS ORDERED: Potassium Chloride 20 MEQ Tab.ER PO ONE (08:04)
[2018-07-05] MEDS ORDERED: Potassium Chloride 20 MEQ Tab.ER PO SCH (09:00)
[2018-07-05] MEDS: NS + KCl 20mEq/L 1,000 ML IV SCH (09:34)
[2018-07-05] MEDS: predniSONE 5 MG Tab PO SCH (09:38)
--- NOTE | 2018-07-05 12:57 | PCM.PN ---
- General Info Date of Service: 07/05/18 Subjective Update: no concerns this morning. Appears fatigued which is her baseline. No pain reported or symptoms of concern. - Review of Systems General: Reports: Other (see hpi) - Patient Data Vitals - Most Recent: Last Vital Signs Temp 37.6 C 07/05/18 11:00 Pulse 92 07/05/18 11:00 Resp 16 07/05/18 11:00 BP 96/54 L 07/05/18 11:00 Pulse Ox 91 L 07/05/18 11:00 Weight - Most Recent: 74.843 kg I&O - Last 24 Hours: Intake & Output 07/04/18 07/05/18 07/05/18 22:59 06:59 14:59 Intake Total 1907 2058 Output Total 0 Balance 1907 2058 Lab Results Last 24 Hours: Laboratory Results - last 24 hr 07/04/18 07/04/18 07/05/18 Range/Units 12:51 17:12 05:48 WBC (4.0-11.0) K/uL RBC (4.30-5.90) M/uL Hgb (12.0-16.0) g/dL Hct (36.0-46.0) % MCV (80.0-98.0) fL MCH (27.0-32.0) pg MCHC (31.0-37.0) g/dL RDW Std Deviation (28.0-62.0) fl RDW Coeff of Caleb (11.0-15.0) % Plt Count (150-400) K/uL MPV (7.40-12.00) fL Add Manual Diff Neutrophils % (Manual) Band Neutrophils % Lymphocytes % (Manual) Atypical Lymphs % Immat Monocytes % (Man) Monocytes % (Manual) Eosinophils % (Manual) Basophils % (Manual) Metamyelocytes % Myelocytes % Promyelocytes % Blast Cells % Plasma Cell % (Manual) Nucleated RBC % /100WBC Immature Gran # Absolute Neutrophils Absolute Seg Neuts Band Neutrophils # Lymphocytes # (Manual) Monocytes # (Manual) Eosinophils # (Manual) Basophils # (Manual) Absolute Metamyelocyte Absolute Myelocytes Absolute Promyelocytes Absolute Plasma Cells Nucleated RBCs Nucleated RBCs # K/uL Differential Comment Pathologist Review Bilobed Neuts Hypersegmented Neuts Variant Lymphocytes Atypical Lymphocytes Abnormal Lymphocytes Plasmacytoid Lymphs Reactive Lymphocytes Vacuolated Monocytes Absolute Blast Cells Smudge Cells Toxic Granulation Dohle Bodies Pelger-Huet Cells Megakaryocytic Frags Shoaib Rods WBC Morphology Comment Platelet Estimate Hypogranular Platelets Platelet Agranulation Clumped Platelets Giant Platelets Platelet Satelliting Bizarre Platelets Plt Morphology Comment Polychromasia Hypochromasia Poikilocytosis Basophilic Stippling Anisocytosis Microcytosis Macrocytosis Spherocytes Micro Spherocytes Pappenheimer Bodies Siderocytes Sickle Cells Target Cells Tear Drop Cells Ovalocytes Stomatocytes Helmet Cells [place]ceo-[place] Bodies [place] Rings [place] Cells Elliptocytes Acanthocytes (Spur) Rouleaux Hemoglobin C Crystals Schistocytes RBC Morph Comment Smear Path Review Arsenio Bodies INR 2.46 Sodium (136-145) mmol/L Potassium (3.5-5.1) mmol/L Chloride (98-107) mmol/L Carbon Dioxide (21.0-32.0) mmol/L BUN (7.0-18.0) mg/dL Creatinine (0.6-1.0) mg/dL Est Cr Clr Drug Dosing mL/min Estimated GFR (MDRD) ml/min Glucose (74-106) mg/dL POC Glucose 291 H 103 (60-110) mg/dL Hemoglobin A1c (4.5-6.2) % Calcium (8.5-10.1) mg/dL Magnesium (1.8-2.4) mg/dL Total Bilirubin (0.2-1.0) mg/dL AST (15-37) IU/L ALT (14-63) IU/L Alkaline Phosphatase (46-116) U/L Total Protein (6.4-8.2) g/dL Albumin (3.4-5.0) g/dL Globulin (2.0-3.5) g/dL Albumin/Globulin Ratio (1.3-2.8) Bld Parasites Quantity Slides for Path Review Blood Type Antibody Screen Crossmatch 07/05/18 07/05/18 07/05/18 Range/Units 05:48 05:48 05:48 WBC 0.12 L (4.0-11.0) K/uL RBC 2.30 L (4.30-5.90) M/uL Hgb 6.4 L (12.0-16.0) g/dL Hct 19.9 L (36.0-46.0) % MCV 86.5 (80.0-98.0) fL MCH 27.8 (27.0-32.0) pg MCHC 32.2 (31.0-37.0) g/dL RDW Std Deviation 64.8 H (28.0-62.0) fl RDW Coeff of Caleb 21 H (11.0-15.0) % Plt Count 54 L (150-400) K/uL MPV 8.60 (7.40-12.00) fL Add Manual Diff NO Neutrophils % (Manual) Cancelled Band Neutrophils % Cancelled Lymphocytes % (Manual) Cancelled Atypical Lymphs % Cancelled Immat Monocytes % (Man) Cancelled Monocytes % (Manual) Cancelled Eosinophils % (Manual) Cancelled Basophils % (Manual) Cancelled Metamyelocytes % Cancelled Myelocytes % Cancelled Promyelocytes % Cancelled Blast Cells % Cancelled Plasma Cell % (Manual) Cancelled Nucleated RBC % 0.0 /100WBC Immature Gran # Cancelled Absolute Neutrophils Cancelled Absolute Seg Neuts Cancelled Band Neutrophils # Cancelled Lymphocytes # (Manual) Cancelled Monocytes # (Manual) Cancelled Eosinophils # (Manual) Cancelled Basophils # (Manual) Cancelled Absolute Metamyelocyte Cancelled Absolute Myelocytes Cancelled Absolute Promyelocytes Cancelled Absolute Plasma Cells Cancelled Nucleated RBCs Cancelled Nucleated RBCs # 0 K/uL Differential Comment Cancelled Pathologist Review Cancelled Bilobed Neuts Cancelled Hypersegmented Neuts Cancelled Variant Lymphocytes Cancelled Atypical Lymphocytes Cancelled Abnormal Lymphocytes Cancelled Plasmacytoid Lymphs Cancelled Reactive Lymphocytes Cancelled Vacuolated Monocytes Cancelled Absolute Blast Cells Cancelled Smudge Cells Cancelled Toxic Granulation Cancelled Dohle Bodies Cancelled Pelger-Huet Cells Cancelled Megakaryocytic Frags Cancelled Shoaib Rods Cancelled WBC Morphology Comment Cancelled Platelet Estimate Cancelled Hypogranular Platelets Cancelled Platelet Agranulation Cancelled Clumped Platelets Cancelled Giant Platelets Cancelled Platelet Satelliting Cancelled Bizarre Platelets Cancelled Plt Morphology Comment Cancelled Polychromasia Cancelled Hypochromasia Cancelled Poikilocytosis Cancelled Basophilic Stippling Cancelled Anisocytosis Cancelled Microcytosis Cancelled Macrocytosis Cancelled Spherocytes Cancelled Micro Spherocytes Cancelled Pappenheimer Bodies Cancelled Siderocytes Cancelled Sickle Cells Cancelled Target Cells Cancelled Tear Drop Cells Cancelled Ovalocytes Cancelled Stomatocytes Cancelled Helmet Cells Cancelled [place] Bodies Cancelled [place] Cancelled [place] Cells Cancelled Elliptocytes Cancelled Acanthocytes (Spur) Cancelled Rouleaux Cancelled Hemoglobin C Crystals Cancelled Schistocytes Cancelled RBC Morph Comment Cancelled Smear Path Review Cancelled Arsenio Bodies Cancelled INR Sodium 141 (136-145) mmol/L Potassium 2.8 L (3.5-5.1) mmol/L Chloride 109 H (98-107) mmol/L Carbon Dioxide 23.1 (21.0-32.0) mmol/L BUN 18 (7.0-18.0) mg/dL Creatinine 0.8 (0.6-1.0) mg/dL Est Cr Clr Drug Dosing 60.54 mL/min Estimated GFR (MDRD) > 60.0 ml/min Glucose 94 (74-106) mg/dL POC Glucose (60-110) mg/dL Hemoglobin A1c 7.4 H (4.5-6.2) % Calcium 7.4 L (8.5-10.1) mg/dL Magnesium (1.8-2.4) mg/dL Total Bilirubin 0.6 (0.2-1.0) mg/dL AST 10 L (15-37) IU/L ALT 20 (14-63) IU/L Alkaline Phosphatase 58 (46-116) U/L Total Protein 4.7 L (6.4-8.2) g/dL Albumin 1.7 L (3.4-5.0) g/dL Globulin 3.0 (2.0-3.5) g/dL Albumin/Globulin Ratio 0.6 L (1.3-2.8) Bld Parasites Quantity Cancelled Slides for Path Review Cancelled Blood Type Antibody Screen Crossmatch 07/05/18 07/05/18 Range/Units 06:24 06:24 WBC (4.0-11.0) K/uL RBC (4.30-5.90) M/uL Hgb (12.0-16.0) g/dL Hct (36.0-46.0) % MCV (80.0-98.0) fL MCH (27.0-32.0) pg MCHC (31.0-37.0) g/dL RDW Std Deviation (28.0-62.0) fl RDW Coeff of Caleb (11.0-15.0) % Plt Count (150-400) K/uL MPV (7.40-12.00) fL Add Manual Diff Neutrophils % (Manual) Band Neutrophils % Lymphocytes % (Manual) Atypical Lymphs % Immat Monocytes % (Man) Monocytes % (Manual) Eosinophils % (Manual) Basophils % (Manual) Metamyelocytes % Myelocytes % Promyelocytes % Blast Cells % Plasma Cell % (Manual) Nucleated RBC % /100WBC Immature Gran # Absolute Neutrophils Absolute Seg Neuts Band Neutrophils # Lymphocytes # (Manual) Monocytes # (Manual) Eosinophils # (Manual) Basophils # (Manual) Absolute Metamyelocyte Absolute Myelocytes Absolute Promyelocytes Absolute Plasma Cells Nucleated RBCs Nucleated RBCs # K/uL Differential Comment Pathologist Review Bilobed Neuts Hypersegmented Neuts Variant Lymphocytes Atypical Lymphocytes Abnormal Lymphocytes Plasmacytoid Lymphs Reactive Lymphocytes Vacuolated Monocytes Absolute Blast Cells Smudge Cells Toxic Granulation Dohle Bodies Pelger-Huet Cells Megakaryocytic Frags Shoaib Rods WBC Morphology Comment Platelet Estimate Hypogranular Platelets Platelet Agranulation Clumped Platelets Giant Platelets Platelet Satelliting Bizarre Platelets Plt Morphology Comment Polychromasia Hypochromasia Poikilocytosis Basophilic Stippling Anisocytosis Microcytosis Macrocytosis Spherocytes Micro Spherocytes Pappenheimer Bodies Siderocytes Sickle Cells Target Cells Tear Drop Cells Ovalocytes Stomatocytes Helmet Cells Arceo-[place] Bodies [place] Cells Elliptocytes Acanthocytes (Spur) Rouleaux Hemoglobin C Crystals Schistocytes RBC Morph Comment Smear Path Review Arsenio Bodies INR Sodium (136-145) mmol/L Potassium (3.5-5.1) mmol/L Chloride (98-107) mmol/L Carbon Dioxide (21.0-32.0) mmol/L BUN (7.0-18.0) mg/dL Creatinine (0.6-1.0) mg/dL Est Cr Clr Drug Dosing mL/min Estimated GFR (MDRD) ml/min Glucose (74-106) mg/dL POC Glucose (60-110) mg/dL Hemoglobin A1c (4.5-6.2) % Calcium (8.5-10.1) mg/dL Magnesium 2.0 (1.8-2.4) mg/dL Total Bilirubin (0.2-1.0) mg/dL AST (15-37) IU/L ALT (14-63) IU/L Alkaline Phosphatase (46-116) U/L Total Protein (6.4-8.2) g/dL Albumin (3.4-5.0) g/dL Globulin (2.0-3.5) g/dL Albumin/Globulin Ratio (1.3-2.8) Bld Parasites Quantity Slides for Path Review Blood Type A POSITIVE Antibody Screen NEGATIVE Crossmatch See Detail Med Orders - Current: Current Medications Acetaminophen (Tylenol) 650 mg PO Q4H PRN PRN Reason: Pain (Mild 1-3)/fever Last Admin: 07/04/18 18:22 Dose: 650 mg Albuterol (Ventolin Hfa) 0 gm INH Q6H PRN PRN Reason: Shortness of Breath Benzonatate (Tessalon Perles) 200 mg PO BID PRN PRN Reason: Cough Docusate Sodium (Colace) 100 mg PO BID PRN PRN Reason: Constipation Potassium Chloride/Sodium Chloride (Normal Saline With 20 Meq Kcl) 1,000 mls @ 100 mls/hr IV ASDIRECTED [facility] Last Admin: 07/05/18 09:34 Dose: 100 mls/hr Insulin Aspart (Novolog) 0 unit SUBCUT TIDAC [facility]; Protocol Last Admin: 07/05/18 06:34 Dose: Not Given Levothyroxine Sodium (Synthroid) 100 mcg PO ACBREAKFAST [facility] Last Admin: 07/05/18 06:33 Dose: 100 mcg Ondansetron HCl (Zofran Odt) 4 mg PO Q4H PRN PRN Reason: nausea, able to take PO Ondansetron HCl (Zofran) 4 mg IVPUSH Q4H PRN PRN Reason: Nausea Oxycodone HCl (Oxycodone) 5 mg PO Q4H PRN PRN Reason: Pain (moderate 4-6) Pantoprazole Sodium (Protonix) 40 mg PO ACBREAKFAST [facility] Polyethylene Glycol (Miralax) 17 gm PO DAILY PRN PRN Reason: Constipation Last Admin: 07/03/18 19:43 Dose: 17 gm Prednisone (Prednisone) 5 mg PO DAILY [facility] Last Admin: 07/05/18 09:38 Dose: 5 mg Temazepam (Restoril) 15 mg PO BEDTIME PRN PRN Reason: Sleep Warfarin Sodium (Coumadin) 7.5 mg PO [id number] [facility] Last Admin: 07/03/18 15:00 Dose: 7.5 mg Warfarin Sodium (Coumadin) 5 mg PO [id number] [facility] Last Admin: 07/04/18 14:34 Dose: 5 mg Discontinued Medications Albuterol (Proventil Hfa) 0 gm INH Q6H PRN PRN Reason: Shortness of Breath Albuterol/Ipratropium (Duoneb 3.0-0.5 Mg/3 Ml) 3 ml NEB ONETIME ONE Stop: 07/03/18 11:44 Last Admin: 07/03/18 11:54 Dose: 3 ml Carvedilol (Coreg) 6.25 mg PO BID [facility] Last Admin: 07/04/18 20:27 Dose: 6.25 mg Sodium Chloride (Normal Saline) 500 mls @ 999 mls/hr IV .BOLUS ONE Stop: 07/03/18 11:43 Last Infusion: 07/03/18 11:45 Dose: 125 mls/hr Sodium Chloride (Normal Saline) 1,000 mls @ 100 mls/hr IV ASDIRECTED [facility] Last Infusion: 07/05/18 04:19 Dose: 100 mls/hr Magnesium Sulfate 2 gm/ Premix 50 mls @ 25 mls/hr IV ONETIME ONE Stop: 07/04/18 08:51 Last Admin: 07/04/18 08:28 Dose: 25 mls/hr Ibuprofen (Motrin) 600 mg PO Q6H PRN PRN Reason: Pain (mild 1-3) Omeprazole (Omeprazole) 20 mg PO ACBREAKFAST [facility] Last Admin: 07/05/18 06:33 Dose: 20 mg Potassium Chloride (Klor-Con M20) 40 meq PO DAILY [facility] Potassium Chloride (Klor-Con M20) 40 meq PO DAILY ONE Stop: 07/05/18 08:05 Last Admin: 07/05/18 09:38 Dose: 40 meq - Exam General: Alert, Oriented HEENT: Pupils Equal, Pupils Reactive, EOMI, Mucous Membr. Moist/[place] Neck: Supple Lungs: Clear to Auscultation, Normal Respiratory Effort Cardiovascular: Regular Rate, Regular Rhythm Back Exam: Normal Inspection, Full Range of Motion Extremities: Normal Inspection, Normal Range of Motion, Non-Tender, No Pedal Edema, Normal Capillary Refill Peripheral Pulses: 1+: Dorsalis Pedis (L), Dorsalis Pedis (R) Skin: Warm, Dry Psy/Mental Status: Alert, Normal Affect, Normal Mood - Problem List Review Problem List Initiated/Reviewed/Updated: Yes - My Orders Last 24 Hours: My Active Orders 07/05/18 06:24 RED BLOOD CELLS LP [BBK] Routine TYPE AND SCREEN [BBK] Routine 07/05/18 08:15 NS + KCl 20mEq/L [Normal Saline with 20 mEq KCl] 1,000 ml IV ASDIRECTED 07/05/18 09:57 Transfuse Red Blood Cells [COMM] Routine 07/06/18 07:30 Pantoprazole [ProTONIX] 40 mg PO ACBREAKFAST - Plan Plan:: A: 1. Microcytic anemia 2. Generalized weakness 3. 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 hypokalemia P: #1. Transfuse 2 units #2. Start Protonix 40mg daily. Likely source of anemia is her known pancytopenia /chemotherapy but she is also on prednisone so will start this for GI prophylaxis. #3. IVNS + 20KCl 100ml/h #4. Recheck H/H after transfusion. #5. CBC, BMP tomorrow AM. Will need SNF placement.
[2018-07-05] MEDS: Acetaminophen 325 MG Tab PO PRN (13:39)
[2018-07-05] MEDS: Warfarin 5 MG Tab PO SCH (15:02)
[2018-07-06] MEDS: NS + KCl 20mEq/L 1,000 ML IV SCH (04:14)
[2018-07-06] MEDS: Pantoprazole 40 MG Tab.CR PO SCH (06:30)
[2018-07-06] MEDS: Levothyroxine 100 MCG Tab PO SCH (06:30)
[2018-07-06] MEDS: Insulin Aspart 100 Units/ML 3 ML Pen SUBCUT SCH ×3 (06:30→17:26)
[2018-07-06 06:54] LABS: CHLORIDE,CL 111 mmol/L (98-107); SODIUM,NA 144 mmol/L (136-145)
[2018-07-06] MEDS ORDERED: Magnesium Sulfate/Water 2 GM in Premix Bag 1 BAG IV ONE (08:37)
--- NOTE | 2018-07-06 08:58 | PCM.PN ---
- General Info Date of Service: 07/06/18 Subjective Update: S/p transfusion 2 units PRBCs. Feeling better. Denies chest pain, abdominal pain , dysuria. She is having some diarrhea. No fevers. - Patient Data Vitals - Most Recent: Last Vital Signs Temp 37.2 C 07/06/18 04:00 Pulse 96 07/06/18 04:00 Resp 16 07/06/18 04:00 BP 110/62 07/06/18 04:00 Pulse Ox 92 L 07/06/18 04:00 Weight - Most Recent: 74.843 kg I&O - Last 24 Hours: Intake & Output 07/05/18 07/06/18 07/06/18 22:59 06:59 14:59 Intake Total 1689 1150 Balance 1689 1150 Lab Results Last 24 Hours: Laboratory Results - last 24 hr 07/05/18 07/05/18 07/05/18 Range/Units 06:24 06:26 13:33 WBC (4.0-11.0) K/uL RBC (4.30-5.90) M/uL Hgb (12.0-16.0) g/dL Hct (36.0-46.0) % MCV (80.0-98.0) fL MCH (27.0-32.0) pg MCHC (31.0-37.0) g/dL RDW Std Deviation (28.0-62.0) fl RDW Coeff of Caleb (11.0-15.0) % Plt Count (150-400) K/uL MPV (7.40-12.00) fL Add Manual Diff INR Sodium (136-145) mmol/L Potassium (3.5-5.1) mmol/L Chloride (98-107) mmol/L Carbon Dioxide (21.0-32.0) mmol/L BUN (7.0-18.0) mg/dL Creatinine (0.6-1.0) mg/dL Est Cr Clr Drug Dosing mL/min Estimated GFR (MDRD) ml/min Glucose (74-106) mg/dL POC Glucose 84 111 H (60-110) mg/dL Calcium (8.5-10.1) mg/dL Magnesium (1.8-2.4) mg/dL Total Bilirubin (0.2-1.0) mg/dL AST (15-37) IU/L ALT (14-63) IU/L Alkaline Phosphatase (46-116) U/L Total Protein (6.4-8.2) g/dL Albumin (3.4-5.0) g/dL Globulin (2.0-3.5) g/dL Albumin/Globulin Ratio (1.3-2.8) Blood Type A POSITIVE Antibody Screen NEGATIVE Crossmatch See Detail 07/05/18 07/05/18 07/06/18 Range/Units 16:35 21:15 06:17 WBC (4.0-11.0) K/uL RBC (4.30-5.90) M/uL Hgb 9.3 L (12.0-16.0) g/dL Hct 27.5 L (36.0-46.0) % MCV (80.0-98.0) fL MCH (27.0-32.0) pg MCHC (31.0-37.0) g/dL RDW Std Deviation (28.0-62.0) fl RDW Coeff of Caleb (11.0-15.0) % Plt Count (150-400) K/uL MPV (7.40-12.00) fL Add Manual Diff INR 3.39 Sodium (136-145) mmol/L Potassium (3.5-5.1) mmol/L Chloride (98-107) mmol/L Carbon Dioxide (21.0-32.0) mmol/L BUN (7.0-18.0) mg/dL Creatinine (0.6-1.0) mg/dL Est Cr Clr Drug Dosing mL/min Estimated GFR (MDRD) ml/min Glucose (74-106) mg/dL POC Glucose 126 H (60-110) mg/dL Calcium (8.5-10.1) mg/dL Magnesium (1.8-2.4) mg/dL Total Bilirubin (0.2-1.0) mg/dL AST (15-37) IU/L ALT (14-63) IU/L Alkaline Phosphatase (46-116) U/L Total Protein (6.4-8.2) g/dL Albumin (3.4-5.0) g/dL Globulin (2.0-3.5) g/dL Albumin/Globulin Ratio (1.3-2.8) Blood Type Antibody Screen Crossmatch 07/06/18 07/06/18 07/06/18 Range/Units 06:17 06:17 06:17 WBC 0.33 L (4.0-11.0) K/uL RBC 3.15 L (4.30-5.90) M/uL Hgb 8.9 L (12.0-16.0) g/dL Hct 26.5 L (36.0-46.0) % MCV 84.1 (80.0-98.0) fL MCH 28.3 (27.0-32.0) pg MCHC 33.6 (31.0-37.0) g/dL RDW Std Deviation 61.0 (28.0-62.0) fl RDW Coeff of Caleb 20 H (11.0-15.0) % Plt Count 27 L (150-400) K/uL MPV 9.80 (7.40-12.00) fL Add Manual Diff INR Sodium 144 (136-145) mmol/L Potassium 2.6 L (3.5-5.1) mmol/L Chloride 111 H (98-107) mmol/L Carbon Dioxide 20.1 L (21.0-32.0) mmol/L BUN 15 (7.0-18.0) mg/dL Creatinine 0.8 (0.6-1.0) mg/dL Est Cr Clr Drug Dosing 60.54 mL/min Estimated GFR (MDRD) > 60.0 ml/min Glucose 82 (74-106) mg/dL POC Glucose (60-110) mg/dL Calcium 7.9 L (8.5-10.1) mg/dL Magnesium 1.7 L (1.8-2.4) mg/dL Total Bilirubin 1.0 (0.2-1.0) mg/dL AST 8 L (15-37) IU/L ALT 22 (14-63) IU/L Alkaline Phosphatase 66 (46-116) U/L Total Protein 4.9 L (6.4-8.2) g/dL Albumin 1.6 L (3.4-5.0) g/dL Globulin 3.3 (2.0-3.5) g/dL Albumin/Globulin Ratio 0.5 L (1.3-2.8) Blood Type Antibody Screen Crossmatch 07/06/18 Range/Units 06:26 WBC (4.0-11.0) K/uL RBC (4.30-5.90) M/uL Hgb (12.0-16.0) g/dL Hct (36.0-46.0) % MCV (80.0-98.0) fL MCH (27.0-32.0) pg MCHC (31.0-37.0) g/dL RDW Std Deviation (28.0-62.0) fl RDW Coeff of Caleb (11.0-15.0) % Plt Count (150-400) K/uL MPV (7.40-12.00) fL Add Manual Diff INR Sodium (136-145) mmol/L Potassium (3.5-5.1) mmol/L Chloride (98-107) mmol/L Carbon Dioxide (21.0-32.0) mmol/L BUN (7.0-18.0) mg/dL Creatinine (0.6-1.0) mg/dL Est Cr Clr Drug Dosing mL/min Estimated GFR (MDRD) ml/min Glucose (74-106) mg/dL POC Glucose 91 (60-110) mg/dL Calcium (8.5-10.1) mg/dL Magnesium (1.8-2.4) mg/dL Total Bilirubin (0.2-1.0) mg/dL AST (15-37) IU/L ALT (14-63) IU/L Alkaline Phosphatase (46-116) U/L Total Protein (6.4-8.2) g/dL Albumin (3.4-5.0) g/dL Globulin (2.0-3.5) g/dL Albumin/Globulin Ratio (1.3-2.8) Blood Type Antibody Screen Crossmatch Med Orders - Current: Current Medications Acetaminophen (Tylenol) 650 mg PO Q4H PRN PRN Reason: Pain (Mild 1-3)/fever Last Admin: 07/05/18 13:39 Dose: 650 mg Albuterol (Ventolin Hfa) 0 gm INH Q6H PRN PRN Reason: Shortness of Breath Benzonatate (Tessalon Perles) 200 mg PO BID PRN PRN Reason: Cough Docusate Sodium (Colace) 100 mg PO BID PRN PRN Reason: Constipation Potassium Chloride/Sodium Chloride (Normal Saline With 20 Meq Kcl) 1,000 mls @ 100 mls/hr IV ASDIRECTED [facility] Last Admin: 07/06/18 04:14 Dose: 100 mls/hr Magnesium Sulfate 2 gm/ Premix 50 mls @ 25 mls/hr IV ONETIME ONE Stop: 07/06/18 10:36 Insulin Aspart (Novolog) 0 unit SUBCUT TIDAC [facility]; Protocol Last Admin: 07/06/18 06:30 Dose: Not Given Levothyroxine Sodium (Synthroid) 100 mcg PO ACBREAKFAST [facility] Last Admin: 07/06/18 06:30 Dose: 100 mcg Ondansetron HCl (Zofran Odt) 4 mg PO Q4H PRN PRN Reason: nausea, able to take PO Ondansetron HCl (Zofran) 4 mg IVPUSH Q4H PRN PRN Reason: Nausea Oxycodone HCl (Oxycodone) 5 mg PO Q4H PRN PRN Reason: Pain (moderate 4-6) Pantoprazole Sodium (Protonix) 40 mg PO ACBREAKFAST [facility] Last Admin: 07/06/18 06:30 Dose: 40 mg Polyethylene Glycol (Miralax) 17 gm PO DAILY PRN PRN Reason: Constipation Last Admin: 07/03/18 19:43 Dose: 17 gm Potassium Chloride (Potassium Chloride) 40 meq PO Q4H [facility] Stop: 07/06/18 11:46 Prednisone (Prednisone) 5 mg PO DAILY [facility] Last Admin: 07/05/18 09:38 Dose: 5 mg Temazepam (Restoril) 15 mg PO BEDTIME PRN PRN Reason: Sleep Warfarin Sodium (Coumadin) 7.5 mg PO TuThSa@1400 [facility] Last Admin: 07/05/18 15:02 Dose: 7.5 mg Warfarin Sodium (Coumadin) 5 mg PO SuMoWeFr@1400 [facility] Last Admin: 07/04/18 14:34 Dose: 5 mg Discontinued Medications Albuterol (Proventil Hfa) 0 gm INH Q6H PRN PRN Reason: Shortness of Breath Albuterol/Ipratropium (Duoneb 3.0-0.5 Mg/3 Ml) 3 ml NEB ONETIME ONE Stop: 07/03/18 11:44 Last Admin: 07/03/18 11:54 Dose: 3 ml Carvedilol (Coreg) 6.25 mg PO BID [facility] Last Admin: 07/04/18 20:27 Dose: 6.25 mg Sodium Chloride (Normal Saline) 500 mls @ 999 mls/hr IV .BOLUS ONE Stop: 07/03/18 11:43 Last Infusion: 07/03/18 11:45 Dose: 125 mls/hr Sodium Chloride (Normal Saline) 1,000 mls @ 100 mls/hr IV ASDIRECTED [facility] Last Infusion: 07/05/18 04:19 Dose: 100 mls/hr Magnesium Sulfate 2 gm/ Premix 50 mls @ 25 mls/hr IV ONETIME ONE Stop: 07/04/18 08:51 Last Admin: 07/04/18 08:28 Dose: 25 mls/hr Ibuprofen (Motrin) 600 mg PO Q6H PRN PRN Reason: Pain (mild 1-3) Omeprazole (Omeprazole) 20 mg PO ACBREAKFAST [facility] Last Admin: 07/05/18 06:33 Dose: 20 mg Potassium Chloride (Klor-Con M20) 40 meq PO DAILY [facility] Potassium Chloride (Klor-Con M20) 40 meq PO DAILY ONE Stop: 07/05/18 08:05 Last Admin: 07/05/18 09:38 Dose: 40 meq - Exam General: Alert, Oriented, Cooperative Lungs: Normal Respiratory Effort, Other (rales bilaterally in lower lobes.) Cardiovascular: Regular Rate, Regular Rhythm GI/Abdominal Exam: Normal Bowel Sounds, Soft, Non-Tender Extremities: No Pedal Edema - Problem List Review Problem List Initiated/Reviewed/Updated: Yes - My Orders Last 24 Hours: My Active Orders 07/06/18 07:45 Potassium Chloride 40 meq PO Q4H 07/06/18 08:37 Magnesium Sulfate/Water [Magnesium Sulfate 2 GM in Water 50 ML] 2 gm Premix Bag 1 bag IV ONETIME - Plan Plan:: A: 1. normocytic anemia s/p transfusion 2 units PRBCs 2. thrombocytopenia 3. hypokalemia 4. hypomagnesemia 5. supra therapeutic INR 3.3 6. diarrhea 7. generalized weakness P: 1. normocytic anemia s/p 2 units PRBCs. Ordered stool occult test. iron studies. will continue to monitor. 2. thrombocytopenia- ordered 1 unit platelets to be transfused tomorrow. 3. hypokalemia- replaced with KCl 40 mEq Q4H x 2. Will recheck this afternoon. 4. hypomagnesemia- replaced with MgS 2 g IV once. Recheck tomorrow. 5. supra-therapeutic INR, will hold warfarin today. Recheck INR tomorrow. 6. Diarrrhea- ordered stool culture and C.diff. Dispo 1-2 days to [facility].
[2018-07-06] MEDS: predniSONE 5 MG Tab PO SCH (10:07)
[2018-07-06] MEDS: Potassium Chloride 10% 20 MEQ/15 ML Soln 30 ML UD Cup PO SCH ×2 (10:07→12:10)
[2018-07-06] MEDS ORDERED: Hydrocolloid Dressing 4x4 Bandage TOP PRN (14:19)
[2018-07-06 17:16] LABS: CHLORIDE,CL 110 mmol/L (98-107); SODIUM,NA 142 mmol/L (136-145)
[2018-07-06] MEDS ORDERED: Potassium Chloride 10% 20 MEQ/15 ML Soln 30 ML UD Cup PO ONE (17:26)
[2018-07-06] MEDS: Vancomycin 25 MG/ML Compounding Kit PO SCH ×2 (18:15→23:00)
[2018-07-06] MEDS: guaiFENesin 600 MG Tab.ER PO SCH ×2 (18:16→20:22)
[2018-07-06] MEDS: Acetaminophen 325 MG Tab PO PRN (20:22)
[2018-07-07 06:11] LABS: CHLORIDE,CL 112 mmol/L (98-107); SODIUM,NA 144 mmol/L (136-145)
[2018-07-07] MEDS: Levothyroxine 100 MCG Tab PO SCH (06:33)
[2018-07-07] MEDS: Pantoprazole 40 MG Tab.CR PO SCH (06:33)
[2018-07-07] MEDS: Vancomycin 25 MG/ML Compounding Kit PO SCH ×3 (06:33→17:48)
[2018-07-07] MEDS ORDERED: Magnesium Sulfate/Water 2 GM in Premix Bag 1 BAG IV ONE (07:18)
[2018-07-07] MEDS: Insulin Aspart 100 Units/ML 3 ML Pen SUBCUT SCH ×3 (07:29→16:42)
[2018-07-07 07:46] LABS: BILIRUBIN INDIRECT 0.31
[2018-07-07] MEDS: Albuterol 8 GM Inhaler INH PRN (09:26)
[2018-07-07] MEDS: predniSONE 5 MG Tab PO SCH (09:39)
[2018-07-07] MEDS: guaiFENesin 600 MG Tab.ER PO SCH ×2 (09:39→20:05)
--- NOTE | 2018-07-07 09:51 | PCM.PN ---
- General Info Date of Service: 07/07/18 Subjective Update: Doing well this morning. denies nausea, vomiting. Endorses some diffuse abdominal pain. States her BMs have decreased in frequency. Denies chest pain, dyspnea. - Patient Data Vitals - Most Recent: Last Vital Signs Temp 36.9 C 07/07/18 04:00 Pulse 100 07/07/18 04:00 Resp 20 07/07/18 04:00 BP 119/77 07/07/18 04:00 Pulse Ox 93 L 07/06/18 23:59 Weight - Most Recent: 74.843 kg I&O - Last 24 Hours: Intake & Output 07/06/18 07/07/18 07/07/18 22:59 06:59 14:59 Intake Total 500 250 50 Balance 500 250 50 Lab Results Last 24 Hours: Laboratory Results - last 24 hr 07/05/18 07/06/18 07/06/18 Range/Units 06:24 06:07 11:49 WBC (4.0-11.0) K/uL RBC (4.30-5.90) M/uL Hgb (12.0-16.0) g/dL Hct (36.0-46.0) % MCV (80.0-98.0) fL MCH (27.0-32.0) pg MCHC (31.0-37.0) g/dL RDW Std Deviation (28.0-62.0) fl RDW Coeff of Caleb (11.0-15.0) % Plt Count (150-400) K/uL MPV (7.40-12.00) fL Add Manual Diff Nucleated RBC % /100WBC Nucleated RBCs # K/uL INR Sodium (136-145) mmol/L Potassium (3.5-5.1) mmol/L Chloride (98-107) mmol/L Carbon Dioxide (21.0-32.0) mmol/L BUN (7.0-18.0) mg/dL Creatinine (0.6-1.0) mg/dL Est Cr Clr Drug Dosing mL/min Estimated GFR (MDRD) ml/min Glucose (74-106) mg/dL POC Glucose 129 H (60-110) mg/dL Calcium (8.5-10.1) mg/dL Magnesium (1.8-2.4) mg/dL Iron 24 L (50-175) ug/dL TIBC 145 L (250-450) ug/dL % Saturation 16.55 L (20-55) % Ferritin 717 H (8-252) ng/mL Total Bilirubin (0.2-1.0) mg/dL Direct Bilirubin (0.0-0.5) mg/dL Indirect Bilirubin AST (15-37) IU/L ALT (14-63) IU/L Alkaline Phosphatase (46-116) U/L Lactate Dehydrogenase (81-234) U/L Total Protein (6.4-8.2) g/dL Albumin (3.4-5.0) g/dL Globulin (2.0-3.5) g/dL Albumin/Globulin Ratio (1.3-2.8) Blood Type Cancelled Antibody Screen Cancelled Crossmatch See Detail 07/06/18 07/06/18 07/07/18 Range/Units 16:08 16:54 05:00 WBC (4.0-11.0) K/uL RBC (4.30-5.90) M/uL Hgb (12.0-16.0) g/dL Hct (36.0-46.0) % MCV (80.0-98.0) fL MCH (27.0-32.0) pg MCHC (31.0-37.0) g/dL RDW Std Deviation (28.0-62.0) fl RDW Coeff of Caleb (11.0-15.0) % Plt Count (150-400) K/uL MPV (7.40-12.00) fL Add Manual Diff Nucleated RBC % /100WBC Nucleated RBCs # K/uL INR Sodium 142 (136-145) mmol/L Potassium 3.4 L (3.5-5.1) mmol/L Chloride 110 H (98-107) mmol/L Carbon Dioxide 20.8 L (21.0-32.0) mmol/L BUN 14 (7.0-18.0) mg/dL Creatinine 0.9 (0.6-1.0) mg/dL Est Cr Clr Drug Dosing 53.81 mL/min Estimated GFR (MDRD) > 60.0 ml/min Glucose 151 H (74-106) mg/dL POC Glucose 149 H (60-110) mg/dL Calcium 8.3 L (8.5-10.1) mg/dL Magnesium (1.8-2.4) mg/dL Iron (50-175) ug/dL TIBC (250-450) ug/dL % Saturation (20-55) % Ferritin (8-252) ng/mL Total Bilirubin 0.6 (0.2-1.0) mg/dL Direct Bilirubin 0.29 (0.0-0.5) mg/dL Indirect Bilirubin 0.31 AST 7 L (15-37) IU/L ALT 22 (14-63) IU/L Alkaline Phosphatase 68 (46-116) U/L Lactate Dehydrogenase 154 (81-234) U/L Total Protein 4.9 L (6.4-8.2) g/dL Albumin 1.5 L (3.4-5.0) g/dL Globulin 3.4 (2.0-3.5) g/dL Albumin/Globulin Ratio 0.4 L (1.3-2.8) Blood Type Antibody Screen Crossmatch 07/07/18 07/07/18 07/07/18 Range/Units 05:26 05:28 05:28 WBC 1.22 L (4.0-11.0) K/uL RBC 2.11 L (4.30-5.90) M/uL Hgb 6.0 L (12.0-16.0) g/dL Hct 17.8 L (36.0-46.0) % MCV 84.4 (80.0-98.0) fL MCH 28.4 (27.0-32.0) pg MCHC 33.7 (31.0-37.0) g/dL RDW Std Deviation 62.9 H (28.0-62.0) fl RDW Coeff of Caleb 20 H (11.0-15.0) % Plt Count 28 L (150-400) K/uL MPV 9.80 (7.40-12.00) fL Add Manual Diff YES Nucleated RBC % 0.0 /100WBC Nucleated RBCs # 0 K/uL INR Sodium 144 (136-145) mmol/L Potassium 4.1 (3.5-5.1) mmol/L Chloride 112 H (98-107) mmol/L Carbon Dioxide 22.7 (21.0-32.0) mmol/L BUN 15 (7.0-18.0) mg/dL Creatinine 0.8 (0.6-1.0) mg/dL Est Cr Clr Drug Dosing 60.54 mL/min Estimated GFR (MDRD) > 60.0 ml/min Glucose 153 H (74-106) mg/dL POC Glucose 177 H (60-110) mg/dL Calcium 8.7 (8.5-10.1) mg/dL Magnesium 1.7 L (1.8-2.4) mg/dL Iron (50-175) ug/dL TIBC (250-450) ug/dL % Saturation (20-55) % Ferritin (8-252) ng/mL Total Bilirubin (0.2-1.0) mg/dL Direct Bilirubin (0.0-0.5) mg/dL Indirect Bilirubin AST (15-37) IU/L ALT (14-63) IU/L Alkaline Phosphatase (46-116) U/L Lactate Dehydrogenase (81-234) U/L Total Protein (6.4-8.2) g/dL Albumin (3.4-5.0) g/dL Globulin (2.0-3.5) g/dL Albumin/Globulin Ratio (1.3-2.8) Blood Type Antibody Screen Crossmatch 07/07/18 Range/Units 05:28 WBC (4.0-11.0) K/uL RBC (4.30-5.90) M/uL Hgb (12.0-16.0) g/dL Hct (36.0-46.0) % MCV (80.0-98.0) fL MCH (27.0-32.0) pg MCHC (31.0-37.0) g/dL RDW Std Deviation (28.0-62.0) fl RDW Coeff of Caleb (11.0-15.0) % Plt Count (150-400) K/uL MPV (7.40-12.00) fL Add Manual Diff Nucleated RBC % /100WBC Nucleated RBCs # K/uL INR 5.80 Sodium (136-145) mmol/L Potassium (3.5-5.1) mmol/L Chloride (98-107) mmol/L Carbon Dioxide (21.0-32.0) mmol/L BUN (7.0-18.0) mg/dL Creatinine (0.6-1.0) mg/dL Est Cr Clr Drug Dosing mL/min Estimated GFR (MDRD) ml/min Glucose (74-106) mg/dL POC Glucose (60-110) mg/dL Calcium (8.5-10.1) mg/dL Magnesium (1.8-2.4) mg/dL Iron (50-175) ug/dL TIBC (250-450) ug/dL % Saturation (20-55) % Ferritin (8-252) ng/mL Total Bilirubin (0.2-1.0) mg/dL Direct Bilirubin (0.0-0.5) mg/dL Indirect Bilirubin AST (15-37) IU/L ALT (14-63) IU/L Alkaline Phosphatase (46-116) U/L Lactate Dehydrogenase (81-234) U/L Total Protein (6.4-8.2) g/dL Albumin (3.4-5.0) g/dL Globulin (2.0-3.5) g/dL Albumin/Globulin Ratio (1.3-2.8) Blood Type Antibody Screen Crossmatch Heriberto Results Last 24 Hours: Microbiology 07/06/18 14:15 Campylobacter Antigen Assay - Final Stool / Feces NEGATIVE CAMPYLOBACTER AG Shiga Toxin I - Final NEGATIVE FOR SHIGA TOXIN 1 Shiga Toxin II - Final NEGATIVE FOR SHIGA TOXIN 2 07/06/18 14:15 Clostridium difficile Toxin A & B - Final Stool / Feces Positive C. Diff Antigen Stool Occult Blood (HERIBERTO) - Final NEGATIVE OCCULT BLOOD Med Orders - Current: Current Medications Acetaminophen (Tylenol) 650 mg PO Q4H PRN PRN Reason: Pain (Mild 1-3)/fever Last Admin: 07/06/18 20:22 Dose: 650 mg Albuterol (Ventolin Hfa) 0 gm INH Q6H PRN PRN Reason: Shortness of Breath Last Admin: 07/07/18 09:26 Dose: 1 spray Benzonatate (Tessalon Perles) 200 mg PO BID PRN PRN Reason: Cough Docusate Sodium (Colace) 100 mg PO BID PRN PRN Reason: Constipation Guaifenesin (Mucinex) 600 mg PO BID [facility] Last Admin: 07/07/18 09:39 Dose: 600 mg Insulin Aspart (Novolog) 0 unit SUBCUT TIDAC [facility]; Protocol Last Admin: 07/07/18 07:29 Dose: 1 units Levothyroxine Sodium (Synthroid) 100 mcg PO ACBREAKFAST [facility] Last Admin: 07/07/18 06:33 Dose: 100 mcg Ondansetron HCl (Zofran Odt) 4 mg PO Q4H PRN PRN Reason: nausea, able to take PO Ondansetron HCl (Zofran) 4 mg IVPUSH Q4H PRN PRN Reason: Nausea Oxycodone HCl (Oxycodone) 5 mg PO Q4H PRN PRN Reason: Pain (moderate 4-6) Pantoprazole Sodium (Protonix) 40 mg PO ACBREAKFAST [facility] Last Admin: 07/07/18 06:33 Dose: 40 mg Polyethylene Glycol (Miralax) 17 gm PO DAILY PRN PRN Reason: Constipation Last Admin: 07/03/18 19:43 Dose: 17 gm Prednisone (Prednisone) 5 mg PO DAILY [facility] Last Admin: 07/07/18 09:39 Dose: 5 mg Temazepam (Restoril) 15 mg PO BEDTIME PRN PRN Reason: Sleep Vancomycin HCl (First-Vancomycin 25 Compounding Kit) 125 mg PO QID [facility] Last Admin: 07/07/18 06:33 Dose: 5 ml Wound Care/Dressing Products (Duoderm Cgf) 1 each TOP ASDIRECTED PRN PRN Reason: bedsore Last Admin: 07/07/18 06:38 Dose: 1 each Discontinued Medications Albuterol (Proventil Hfa) 0 gm INH Q6H PRN PRN Reason: Shortness of Breath Albuterol/Ipratropium (Duoneb 3.0-0.5 Mg/3 Ml) 3 ml NEB ONETIME ONE Stop: 07/03/18 11:44 Last Admin: 07/03/18 11:54 Dose: 3 ml Carvedilol (Coreg) 6.25 mg PO BID [facility] Last Admin: 07/04/18 20:27 Dose: 6.25 mg Sodium Chloride (Normal Saline) 500 mls @ 999 mls/hr IV .BOLUS ONE Stop: 07/03/18 11:43 Last Infusion: 07/03/18 11:45 Dose: 125 mls/hr Sodium Chloride (Normal Saline) 1,000 mls @ 100 mls/hr IV ASDIRECTED [facility] Last Infusion: 07/05/18 04:19 Dose: 100 mls/hr Magnesium Sulfate 2 gm/ Premix 50 mls @ 25 mls/hr IV ONETIME ONE Stop: 07/04/18 08:51 Last Admin: 07/04/18 08:28 Dose: 25 mls/hr Potassium Chloride/Sodium Chloride (Normal Saline With 20 Meq Kcl) 1,000 mls @ 100 mls/hr IV ASDIRECTED [facility] Last Admin: 07/06/18 04:14 Dose: 100 mls/hr Magnesium Sulfate 2 gm/ Premix 50 mls @ 25 mls/hr IV ONETIME ONE Stop: 07/06/18 10:36 Last Admin: 07/06/18 10:04 Dose: 25 mls/hr Magnesium Sulfate 2 gm/ Premix 50 mls @ 50 mls/hr IV ONETIME ONE Stop: 07/07/18 08:17 Last Admin: 07/07/18 08:14 Dose: 50 mls/hr Ibuprofen (Motrin) 600 mg PO Q6H PRN PRN Reason: Pain (mild 1-3) Omeprazole (Omeprazole) 20 mg PO ACBREAKFAST [facility] Last Admin: 07/05/18 06:33 Dose: 20 mg Potassium Chloride (Klor-Con M20) 40 meq PO DAILY [facility] Potassium Chloride (Klor-Con M20) 40 meq PO DAILY ONE Stop: 07/05/18 08:05 Last Admin: 07/05/18 09:38 Dose: 40 meq Potassium Chloride (Potassium Chloride) 40 meq PO Q4H [facility] Stop: 07/06/18 11:46 Last Admin: 07/06/18 12:10 Dose: 40 meq Potassium Chloride (Potassium Chloride) 40 meq PO ONETIME ONE Stop: 07/06/18 17:27 Last Admin: 07/06/18 18:15 Dose: 40 meq Warfarin Sodium (Coumadin) 7.5 mg PO [email or web address] [facility] Last Admin: 07/05/18 15:02 Dose: 7.5 mg Warfarin Sodium (Coumadin) 5 mg PO [email or web address] [facility] Last Admin: 07/04/18 14:34 Dose: 5 mg - Exam General: Alert, Oriented Lungs: Rales (rales bilaterally in lower lung atkinson.) Cardiovascular: Regular Rate GI/Abdominal Exam: Normal Bowel Sounds (distended, tender in lower quadrants. No rebound.) Extremities: Normal Inspection, Non-Tender, No Pedal Edema Skin: Warm, Dry - Problem List Review Problem List Initiated/Reviewed/Updated: Yes - My Orders Last 24 Hours: My Active Orders 07/06/18 09:58 PLATELETS APH [BBK] Routine 07/06/18 14:15 CULTURE STOOL + CAMPY+SHIGATOX [RM] Routine 07/06/18 14:19 Hydrocolloid Dressing [DuoDerm CGF] 1 each TOP ASDIRECTED PRN 07/06/18 17:45 guaiFENesin [Mucinex] 600 mg PO BID 07/06/18 18:00 Vancomycin [First-Vancomycin 25 Compounding Kit] 125 mg PO QID 07/07/18 05:28 CBC WITH AUTO DIFF [HEME] AM 07/07/18 08:07 Transfuse Red Blood Cells [COMM] Routine 07/07/18 08:08 RED BLOOD CELLS LP [BBK] Routine 07/07/18 08:17 Supplement (Dietary) [Dietary Supplements] [RC] TIDMEALS - Plan Plan:: A: 1. normocytic anemia s/p transfusion 2 units PRBCs 2. C.diff colitis 3. thrombocytopenia 4. hypokalemia, resolved 5. hypomagnesemia, replaced 6. supra-therapeutic INR 5.8 7. generalized weakness 8. severe protein malnutrition P: 1. normocytic anemia. Pt remains severely anemic at Hg 6.0. Stool occult was negative. Suspect this is due to her chemotherapy. I have ordered 2 units of irradiated PRBCs to be transfused today. 2. thrombocytopenia- transfuse 1 unit platelets today. 3. C. diff colitis- continue vancomycin 125 mg PO QID for total of 10 days. Will start maintenance NS fluids today. 4. hypomagnesemia- replaced with MgS 2 g IV once. Recheck tomorrow. 5. supra-therapeutic INR, will hold warfarin today. Recheck INR tomorrow. 6. Severe protein malnutrition- ordered Ensure TID with meals. Dispo plan to [facility] to [facility] tomorrow.
[2018-07-07] MEDS ORDERED: Sodium Chloride 0.9% 1,000 ML IV SCH (10:00)
[2018-07-07] MEDS ORDERED: Carboxymethylcellulose Sodium 0.5% Ophth Soln 0.4 ML UD Box of 30 EYEBOTH PRN (15:59)
[2018-07-07] MEDS: Acetaminophen 325 MG Tab PO PRN (19:02)
[2018-07-07] MEDS ORDERED: Furosemide 20 MG/2 ML VIAL IVPUSH ONE (19:24)
[2018-07-08] MEDS: Vancomycin 25 MG/ML Compounding Kit PO SCH ×3 (00:17→11:44)
[2018-07-08] MEDS: Levothyroxine 100 MCG Tab PO SCH (06:36)
[2018-07-08] MEDS: Pantoprazole 40 MG Tab.CR PO SCH (06:36)
[2018-07-08] MEDS: Insulin Aspart 100 Units/ML 3 ML Pen SUBCUT SCH ×2 (06:43→12:56)
[2018-07-08] MEDS ORDERED: Magnesium Sulfate/Water 2 GM in Premix Bag 1 BAG IV ONE (07:15)
[2018-07-08] MEDS ORDERED: Potassium Chloride 10% 20 MEQ/15 ML Soln 30 ML UD Cup PO ONE ×2 (07:16→10:00)
[2018-07-08] MEDS: guaiFENesin 600 MG Tab.ER PO SCH (08:54)
[2018-07-08] MEDS: predniSONE 5 MG Tab PO SCH (08:54)
--- NOTE | 2018-07-08 09:23 | PCM.DCSUM1 ---
<Yadiel Turner - Last Filed: 07/08/18 10:40> Discharge Summary - Hospital Course Free Text/Narrative:: Admission date: 07/03/18 Discharge date: 07/08/18 Admission diagnosis: 1. Generalized weakness 2. Pancytopenia 3. Elevated troponin 4. Hyperglycemia 5. Chronic kidney disease, stage III 6. hypothyroidism 7. 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 Generalized weakness, improved 2. Normocytic anemia anemia s/p transfusion total of 4 units PRBCs 3. C.diff colitis, improving 4. Elevated troponin, negative serial troponins 5. Supra-therapeutic INR 4.03, holdwing warfarin 6. thrombocytopenia, s/p transfusion 1 unit platelets 7. hypokalemia, replaced 8. hypomagnesemia, replaced 9. Chronic kidney disease, stage III 10. Hypothyroidism, will need to recheck 4 weeks after discharge 11. Severe protein malnutrition 12. 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 She was admitted for generalized weakness. Serial troponins were negative. She was also noted to be pancytopenic with Hg level of 6.4 secondary to her chemotherapy. She initially was transfused with 2 units PRBCs and Hg increased to 9.6, however, days later it went down to Hg 6.0. She was subsequently transfused with another 2 units PRBCs. Her Hg level increased to 12.1 at time of discharge. Stool occult screen was negative. During this hospitalization, the patient developed C. diff colitis. She was started on Vancomycin 125 mg PO QID for to be treated for total of 10 days. Her warfarin was held due to INR being supra-therapeutic at INR 4.03 at time of discharge. She will need daily INR checks and adjust warfarin dose accordingly. Her TSH was elevated at 16. She will need her TSH rechecked in approximately 4 weeks and reassess synthroid dose. Follow-up: 1. Follow-up with Dr. Godinez in 1-2 weeks. - Discharge Data Discharge Date: 07/08/18 Discharge Disposition: DC/Tfer to [facility] 03 Condition: Stable - Patient Instructions Diet: Regular Diet as Tolerated Diet, Other: Neutropenic diet Activity: As Tolerated Notify Provider of: Fever, Increased Pain, Swelling and Redness, Drainage, Nausea and/or Vomiting Other/Special Instructions: -contact precautions C.diff. -neutropenic diet. - PT/OT, speech therapy. -Check INR daily. -Oxygen PRN for O2 sat<90% - Discharge Plan *PRESCRIPTION DRUG MONITORING PROGRAM REVIEWED*: Not Applicable *COPY OF PRESCRIPTION DRUG MONITORING REPORT IN PATIENT FAIZA: Not Applicable Prescriptions/Med Rec: guaiFENesin [Mucinex] 600 mg PO BID PRN 30 Days #60 tab.er PRN Reason: Cough Potassium Chloride 20 meq PO DAILY 7 Days #7 tablet.er Vancomycin [First-Vancomycin 25 Compounding Kit] 125 mg PO QID 9 Days #1 bottle Home Medications: Home Meds Carvedilol 6.25 mg PO BID 10/08/16 [History] Levothyroxine Sodium 100 mcg PO DAILY 04/04/17 [History] Magnesium Oxide 800 mg PO TID 04/04/17 [History] Omeprazole 20 mg PO ACBREAKFAST 04/04/17 [History] Multivitamins [Childrens Chewable Vitamin] 0 mg PO DAILY 11/26/17 [History] Warfarin [Coumadin] 7.5 mg PO TUTHSA@1800 11/26/17 [History] Albuterol Sulfate [Proair Hfa] 1 - 2 puff INH ASDIRECTED 07/03/18 [History] Warfarin [Coumadin] 5 mg PO SUMOWEFR@1800 07/03/18 [History] Potassium Chloride 20 meq PO DAILY 7 Days #7 tablet.er 07/08/18 [Rx] Vancomycin [First-Vancomycin 25 Compounding Kit] 125 mg PO QID 9 Days #1 bottle 07/08/18 [Rx] guaiFENesin [Mucinex] 600 mg PO BID PRN 30 Days #60 tab.er 07/08/18 [Rx] Patient Handouts: Guaifenesin oral solution and syrup, Vancomycin oral solution , Potassium phosphate; Sodium Phosphate oral tablet Referrals: [facility] [Outside] Gio Hernandez MD [Primary Care Provider] - 07/14/18 - Discharge Summary/Plan Comment DC Time >30 min.: No - Patient Data Vitals - Most Recent: Last Vital Signs Temp 36.8 C 07/08/18 08:00 Pulse 82 07/08/18 04:00 Resp 24 H 07/08/18 08:00 BP 121/83 07/08/18 08:00 Pulse Ox 97 07/08/18 08:00 Weight - Most Recent: 74.843 kg I&O - Last 24 hours: Intake & Output 07/07/18 07/08/18 07/08/18 22:59 06:59 14:59 Intake Total 1291 100 Output Total 195 Balance 1291 -95 Lab Results - Last 24 hrs: Laboratory Results - last 24 hr 07/05/18 07/05/18 07/07/18 Range/Units 06:24 06:24 05:28 WBC (4.0-11.0) K/uL RBC (4.30-5.90) M/uL Hgb (12.0-16.0) g/dL Hct (36.0-46.0) % MCV (80.0-98.0) fL MCH (27.0-32.0) pg MCHC (31.0-37.0) g/dL RDW Std Deviation (28.0-62.0) fl RDW Coeff of Caleb (11.0-15.0) % Plt Count (150-400) K/uL MPV (7.40-12.00) fL Add Manual Diff Neutrophils % (Manual) 45 L (48.0-80.0) % Band Neutrophils % 3 % Lymphocytes % (Manual) 41 H (16.0-40.0) % Monocytes % (Manual) 10 (0.0-15.0) % Eosinophils % (Manual) (0.0-7.0) % Metamyelocytes % 1 % Nucleated RBC % /100WBC Absolute Seg Neuts 0.5 L (1.4-5.7) Band Neutrophils # 0 Lymphocytes # (Manual) 0.5 L (0.6-2.4) Monocytes # (Manual) 0.1 (0.0-0.8) Eosinophils # (Manual) (0.0-0.7) Absolute Metamyelocyte 0 Nucleated RBCs 1 % Nucleated RBCs # K/uL INR Sodium (136-145) mmol/L Potassium (3.5-5.1) mmol/L Chloride (98-107) mmol/L Carbon Dioxide (21.0-32.0) mmol/L BUN (7.0-18.0) mg/dL Creatinine (0.6-1.0) mg/dL Est Cr Clr Drug Dosing mL/min Estimated GFR (MDRD) ml/min Glucose (74-106) mg/dL POC Glucose (60-110) mg/dL Calcium (8.5-10.1) mg/dL Magnesium (1.8-2.4) mg/dL Blood Type A POSITIVE Cancelled Antibody Screen NEGATIVE Cancelled Crossmatch See Detail See Detail 07/07/18 07/07/18 07/07/18 Range/Units 11:35 16:40 19:40 WBC 1.83 L (4.0-11.0) K/uL RBC 4.30 (4.30-5.90) M/uL Hgb 12.4 (12.0-16.0) g/dL Hct 36.0 (36.0-46.0) % MCV 83.7 (80.0-98.0) fL MCH 28.8 (27.0-32.0) pg MCHC 34.4 (31.0-37.0) g/dL RDW Std Deviation 57.9 (28.0-62.0) fl RDW Coeff of Caleb 19 H (11.0-15.0) % Plt Count 53 L (150-400) K/uL MPV 9.30 (7.40-12.00) fL Add Manual Diff YES Neutrophils % (Manual) 45 L (48.0-80.0) % Band Neutrophils % 11 % Lymphocytes % (Manual) 24 (16.0-40.0) % Monocytes % (Manual) 19 H (0.0-15.0) % Eosinophils % (Manual) 1 (0.0-7.0) % Metamyelocytes % % Nucleated RBC % 1.4 /100WBC Absolute Seg Neuts 0.8 L (1.4-5.7) Band Neutrophils # 0.2 Lymphocytes # (Manual) 0.4 L (0.6-2.4) Monocytes # (Manual) 0.3 (0.0-0.8) Eosinophils # (Manual) 0.0 (0.0-0.7) Absolute Metamyelocyte Nucleated RBCs % Nucleated RBCs # 0 K/uL INR Sodium (136-145) mmol/L Potassium (3.5-5.1) mmol/L Chloride (98-107) mmol/L Carbon Dioxide (21.0-32.0) mmol/L BUN (7.0-18.0) mg/dL Creatinine (0.6-1.0) mg/dL Est Cr Clr Drug Dosing mL/min Estimated GFR (MDRD) ml/min Glucose (74-106) mg/dL POC Glucose 122 H 157 H (60-110) mg/dL Calcium (8.5-10.1) mg/dL Magnesium (1.8-2.4) mg/dL Blood Type Antibody Screen Crossmatch 07/08/18 07/08/18 07/08/18 Range/Units 04:55 04:55 04:55 WBC 2.37 L (4.0-11.0) K/uL RBC 4.25 L (4.30-5.90) M/uL Hgb 12.1 (12.0-16.0) g/dL Hct 35.8 L (36.0-46.0) % MCV 84.2 (80.0-98.0) fL MCH 28.5 (27.0-32.0) pg MCHC 33.8 (31.0-37.0) g/dL RDW Std Deviation 59.4 (28.0-62.0) fl RDW Coeff of Caleb 19 H (11.0-15.0) % Plt Count 46 L (150-400) K/uL MPV 9.80 (7.40-12.00) fL Add Manual Diff YES Neutrophils % (Manual) 19 L (48.0-80.0) % Band Neutrophils % 36 % Lymphocytes % (Manual) 29 (16.0-40.0) % Monocytes % (Manual) 16 H (0.0-15.0) % Eosinophils % (Manual) (0.0-7.0) % Metamyelocytes % % Nucleated RBC % 1.5 /100WBC Absolute Seg Neuts 0.5 L (1.4-5.7) Band Neutrophils # 0.9 Lymphocytes # (Manual) 0.7 (0.6-2.4) Monocytes # (Manual) 0.4 (0.0-0.8) Eosinophils # (Manual) (0.0-0.7) Absolute Metamyelocyte Nucleated RBCs % Nucleated RBCs # 0 K/uL INR 4.03 Sodium 146 H (136-145) mmol/L Potassium 3.0 L (3.5-5.1) mmol/L Chloride 110 H (98-107) mmol/L Carbon Dioxide 27.6 (21.0-32.0) mmol/L BUN 18 (7.0-18.0) mg/dL Creatinine 1.0 (0.6-1.0) mg/dL Est Cr Clr Drug Dosing 48.43 mL/min Estimated GFR (MDRD) 55.6 ml/min Glucose 121 H (74-106) mg/dL POC Glucose (60-110) mg/dL Calcium 8.8 (8.5-10.1) mg/dL Magnesium 1.6 L (1.8-2.4) mg/dL Blood Type Antibody Screen Crossmatch 07/08/18 Range/Units 06:25 WBC (4.0-11.0) K/uL RBC (4.30-5.90) M/uL Hgb (12.0-16.0) g/dL Hct (36.0-46.0) % MCV (80.0-98.0) fL MCH (27.0-32.0) pg MCHC (31.0-37.0) g/dL RDW Std Deviation (28.0-62.0) fl RDW Coeff of Caleb (11.0-15.0) % Plt Count (150-400) K/uL MPV (7.40-12.00) fL Add Manual Diff Neutrophils % (Manual) (48.0-80.0) % Band Neutrophils % % Lymphocytes % (Manual) (16.0-40.0) % Monocytes % (Manual) (0.0-15.0) % Eosinophils % (Manual) (0.0-7.0) % Metamyelocytes % % Nucleated RBC % /100WBC Absolute Seg Neuts (1.4-5.7) Band Neutrophils # Lymphocytes # (Manual) (0.6-2.4) Monocytes # (Manual) (0.0-0.8) Eosinophils # (Manual) (0.0-0.7) Absolute Metamyelocyte Nucleated RBCs % Nucleated RBCs # K/uL INR Sodium (136-145) mmol/L Potassium (3.5-5.1) mmol/L Chloride (98-107) mmol/L Carbon Dioxide (21.0-32.0) mmol/L BUN (7.0-18.0) mg/dL Creatinine (0.6-1.0) mg/dL Est Cr Clr Drug Dosing mL/min Estimated GFR (MDRD) ml/min Glucose (74-106) mg/dL POC Glucose 121 H (60-110) mg/dL Calcium (8.5-10.1) mg/dL Magnesium (1.8-2.4) mg/dL Blood Type Antibody Screen Crossmatch VIVIANE Results - Last 24 hrs: Microbiology 07/06/18 14:15 Stool Culture - Final Stool / Feces NO SALMONELLA, SHIGELLA,OR E.COLI O157 ISOLATED Campylobacter Antigen Assay - Final NEGATIVE CAMPYLOBACTER AG Shiga Toxin I - Final NEGATIVE FOR SHIGA TOXIN 1 Shiga Toxin II - Final NEGATIVE FOR SHIGA TOXIN 2 Med Orders - Current: Current Medications Acetaminophen (Tylenol) 650 mg PO Q4H PRN PRN Reason: Pain (Mild 1-3)/fever Last Admin: 07/07/18 19:02 Dose: 650 mg Albuterol (Ventolin Hfa) 0 gm INH Q6H PRN PRN Reason: Shortness of Breath Last Admin: 07/07/18 09:26 Dose: 1 spray Artificial Tears (Refresh Plus 0.5%) 1 each EYEBOTH BID PRN PRN Reason: Eye Dryness Last Admin: 07/07/18 17:48 Dose: 2 drop Benzonatate (Tessalon Perles) 200 mg PO BID PRN PRN Reason: Cough Docusate Sodium (Colace) 100 mg PO BID PRN PRN Reason: Constipation Guaifenesin (Mucinex) 600 mg PO BID MARTINEZ Last Admin: 07/08/18 08:54 Dose: 600 mg Sodium Chloride (Normal Saline) 1,000 mls @ 100 mls/hr IV ASDIRECTED MARTINEZ Insulin Aspart (Novolog) 0 unit SUBCUT TIDAC MARTINEZ; Protocol Last Admin: 07/08/18 06:43 Dose: Not Given Levothyroxine Sodium (Synthroid) 100 mcg PO ACBREAKFAST MARTINEZ Last Admin: 07/08/18 06:36 Dose: 100 mcg Ondansetron HCl (Zofran Odt) 4 mg PO Q4H PRN PRN Reason: nausea, able to take PO Ondansetron HCl (Zofran) 4 mg IVPUSH Q4H PRN PRN Reason: Nausea Oxycodone HCl (Oxycodone) 5 mg PO Q4H PRN PRN Reason: Pain (moderate 4-6) Pantoprazole Sodium (Protonix) 40 mg PO ACBREAKFAST [facility] Last Admin: 07/08/18 06:36 Dose: 40 mg Polyethylene Glycol (Miralax) 17 gm PO DAILY PRN PRN Reason: Constipation Last Admin: 07/03/18 19:43 Dose: 17 gm Potassium Chloride (Potassium Chloride) 40 meq PO ONETIME ONE Stop: 07/08/18 10:01 Prednisone (Prednisone) 5 mg PO DAILY [facility] Last Admin: 07/08/18 08:54 Dose: 5 mg Temazepam (Restoril) 15 mg PO BEDTIME PRN PRN Reason: Sleep Vancomycin HCl (First-Vancomycin 25 Compounding Kit) 125 mg PO QID [facility] Last Admin: 07/08/18 06:24 Dose: 5 ml Wound Care/Dressing Products (Duoderm Cgf) 1 each TOP ASDIRECTED PRN PRN Reason: bedsore Last Admin: 07/07/18 06:38 Dose: 1 each Discontinued Medications Albuterol (Proventil Hfa) 0 gm INH Q6H PRN PRN Reason: Shortness of Breath Albuterol/Ipratropium (Duoneb 3.0-0.5 Mg/3 Ml) 3 ml NEB ONETIME ONE Stop: 07/03/18 11:44 Last Admin: 07/03/18 11:54 Dose: 3 ml Carvedilol (Coreg) 6.25 mg PO BID [facility] Last Admin: 07/04/18 20:27 Dose: 6.25 mg Furosemide (Lasix) 20 mg IVPUSH NOW ONE Stop: 07/07/18 19:25 Last Admin: 07/07/18 19:59 Dose: 20 mg Sodium Chloride (Normal Saline) 500 mls @ 999 mls/hr IV .BOLUS ONE Stop: 07/03/18 11:43 Last Infusion: 07/03/18 11:45 Dose: 125 mls/hr Sodium Chloride (Normal Saline) 1,000 mls @ 100 mls/hr IV ASDIRECTED [facility] Last Infusion: 07/05/18 04:19 Dose: 100 mls/hr Magnesium Sulfate 2 gm/ Premix 50 mls @ 25 mls/hr IV ONETIME ONE Stop: 07/04/18 08:51 Last Admin: 07/04/18 08:28 Dose: 25 mls/hr Potassium Chloride/Sodium Chloride (Normal Saline With 20 Meq Kcl) 1,000 mls @ 100 mls/hr IV ASDIRECTED [facility] Last Admin: 07/06/18 04:14 Dose: 100 mls/hr Magnesium Sulfate 2 gm/ Premix 50 mls @ 25 mls/hr IV ONETIME ONE Stop: 07/06/18 10:36 Last Admin: 07/06/18 10:04 Dose: 25 mls/hr Magnesium Sulfate 2 gm/ Premix 50 mls @ 50 mls/hr IV ONETIME ONE Stop: 07/07/18 08:17 Last Admin: 07/07/18 08:14 Dose: 50 mls/hr Magnesium Sulfate 2 gm/ Premix 50 mls @ 25 mls/hr IV ONETIME ONE Stop: 07/08/18 09:14 Last Admin: 07/08/18 07:49 Dose: 25 mls/hr Ibuprofen (Motrin) 600 mg PO Q6H PRN PRN Reason: Pain (mild 1-3) Omeprazole (Omeprazole) 20 mg PO ACBREAKFAST [facility] Last Admin: 07/05/18 06:33 Dose: 20 mg Potassium Chloride (Klor-Con M20) 40 meq PO DAILY [facility] Potassium Chloride (Klor-Con M20) 40 meq PO DAILY ONE Stop: 07/05/18 08:05 Last Admin: 07/05/18 09:38 Dose: 40 meq Potassium Chloride (Potassium Chloride) 40 meq PO Q4H [facility] Stop: 07/06/18 11:46 Last Admin: 07/06/18 12:10 Dose: 40 meq Potassium Chloride (Potassium Chloride) 40 meq PO ONETIME ONE Stop: 07/06/18 17:27 Last Admin: 07/06/18 18:15 Dose: 40 meq Potassium Chloride (Potassium Chloride) 40 meq PO ONETIME ONE Stop: 07/08/18 07:17 Last Admin: 07/08/18 07:58 Dose: 40 meq Warfarin Sodium (Coumadin) 7.5 mg PO TuThSa@1400 [facility] Last Admin: 07/05/18 15:02 Dose: 7.5 mg Warfarin Sodium (Coumadin) 5 mg PO SuMoWeFr@1400 [facility] Last Admin: 07/04/18 14:34 Dose: 5 mg <Cuba Connell - Last Filed: 07/09/18 15:03> Discharge Summary - Discharge Summary/Plan Comment DC Time >30 min.: No - Patient Data Vitals - Most Recent: Last Vital Signs Temp 37.3 C 07/08/18 11:33 Pulse 82 07/08/18 04:00 Resp 24 H 07/08/18 11:33 BP 122/77 07/08/18 11:33 Pulse Ox 90 L 07/08/18 11:33 Med Orders - Current: Current Medications Discontinued Medications Acetaminophen (Tylenol) 650 mg PO Q4H PRN PRN Reason: Pain (Mild 1-3)/fever Last Admin: 07/07/18 19:02 Dose: 650 mg Albuterol (Proventil Hfa) 0 gm INH Q6H PRN PRN Reason: Shortness of Breath Albuterol (Ventolin Hfa) 0 gm INH Q6H PRN PRN Reason: Shortness of Breath Last Admin: 07/08/18 11:46 Dose: 2 spray Albuterol/Ipratropium (Duoneb 3.0-0.5 Mg/3 Ml) 3 ml NEB ONETIME ONE Stop: 07/03/18 11:44 Last Admin: 07/03/18 11:54 Dose: 3 ml Artificial Tears (Refresh Plus 0.5%) 1 each EYEBOTH BID PRN PRN Reason: Eye Dryness Last Admin: 07/07/18 17:48 Dose: 2 drop Benzonatate (Tessalon Perles) 200 mg PO BID PRN PRN Reason: Cough Carvedilol (Coreg) 6.25 mg PO BID [facility] Last Admin: 07/04/18 20:27 Dose: 6.25 mg Docusate Sodium (Colace) 100 mg PO BID PRN PRN Reason: Constipation Furosemide (Lasix) 20 mg IVPUSH NOW ONE Stop: 07/07/18 19:25 Last Admin: 07/07/18 19:59 Dose: 20 mg Guaifenesin (Mucinex) 600 mg PO BID [facility] Last Admin: 07/08/18 08:54 Dose: 600 mg Heparin Sodium (Porcine) (Heparin Lock Flush 100 Units/Ml) 500 units FLUSH ONETIME ONE Stop: 07/08/18 11:37 Last Admin: 07/08/18 12:31 Dose: 500 units Sodium Chloride (Normal Saline) 500 mls @ 999 mls/hr IV .BOLUS ONE Stop: 07/03/18 11:43 Last Infusion: 07/03/18 11:45 Dose: 125 mls/hr Sodium Chloride (Normal Saline) 1,000 mls @ 100 mls/hr IV ASDIRECTED [facility] Last Infusion: 07/05/18 04:19 Dose: 100 mls/hr Magnesium Sulfate 2 gm/ Premix 50 mls @ 25 mls/hr IV ONETIME ONE Stop: 07/04/18 08:51 Last Admin: 07/04/18 08:28 Dose: 25 mls/hr Potassium Chloride/Sodium Chloride (Normal Saline With 20 Meq Kcl) 1,000 mls @ 100 mls/hr IV ASDIRECTED [facility] Last Admin: 07/06/18 04:14 Dose: 100 mls/hr Magnesium Sulfate 2 gm/ Premix 50 mls @ 25 mls/hr IV ONETIME ONE Stop: 07/06/18 10:36 Last Admin: 07/06/18 10:04 Dose: 25 mls/hr Magnesium Sulfate 2 gm/ Premix 50 mls @ 50 mls/hr IV ONETIME ONE Stop: 07/07/18 08:17 Last Admin: 07/07/18 08:14 Dose: 50 mls/hr Sodium Chloride (Normal Saline) 1,000 mls @ 100 mls/hr IV ASDIRECTED [facility] Magnesium Sulfate 2 gm/ Premix 50 mls @ 25 mls/hr IV ONETIME ONE Stop: 07/08/18 09:14 Last Admin: 07/08/18 07:49 Dose: 25 mls/hr Ibuprofen (Motrin) 600 mg PO Q6H PRN PRN Reason: Pain (mild 1-3) Insulin Aspart (Novolog) 0 unit SUBCUT TIDAC [facility]; Protocol Last Admin: 07/08/18 12:56 Dose: Not Given Levothyroxine Sodium (Synthroid) 100 mcg PO ACBREAKFAST [facility] Last Admin: 07/08/18 06:36 Dose: 100 mcg Omeprazole (Omeprazole) 20 mg PO ACBREAKFAST MARTINEZ Last Admin: 07/05/18 06:33 Dose: 20 mg Ondansetron HCl (Zofran Odt) 4 mg PO Q4H PRN PRN Reason: nausea, able to take PO Ondansetron HCl (Zofran) 4 mg IVPUSH Q4H PRN PRN Reason: Nausea Oxycodone HCl (Oxycodone) 5 mg PO Q4H PRN PRN Reason: Pain (moderate 4-6) Pantoprazole Sodium (Protonix) 40 mg PO ACBREAKFAST [facility] Last Admin: 07/08/18 06:36 Dose: 40 mg Polyethylene Glycol (Miralax) 17 gm PO DAILY PRN PRN Reason: Constipation Last Admin: 07/03/18 19:43 Dose: 17 gm Potassium Chloride (Klor-Con M20) 40 meq PO DAILY [facility] Potassium Chloride (Klor-Con M20) 40 meq PO DAILY ONE Stop: 07/05/18 08:05 Last Admin: 07/05/18 09:38 Dose: 40 meq Potassium Chloride (Potassium Chloride) 40 meq PO Q4H [facility] Stop: 07/06/18 11:46 Last Admin: 07/06/18 12:10 Dose: 40 meq Potassium Chloride (Potassium Chloride) 40 meq PO ONETIME ONE Stop: 07/06/18 17:27 Last Admin: 07/06/18 18:15 Dose: 40 meq Potassium Chloride (Potassium Chloride) 40 meq PO ONETIME ONE Stop: 07/08/18 07:17 Last Admin: 07/08/18 07:58 Dose: 40 meq Potassium Chloride (Potassium Chloride) 40 meq PO ONETIME ONE Stop: 07/08/18 10:01 Last Admin: 07/08/18 10:32 Dose: 40 meq Prednisone (Prednisone) 5 mg PO DAILY [facility] Last Admin: 07/08/18 08:54 Dose: 5 mg Temazepam (Restoril) 15 mg PO BEDTIME PRN PRN Reason: Sleep Vancomycin HCl (First-Vancomycin 25 Compounding Kit) 125 mg PO QID [facility] Last Admin: 07/08/18 11:44 Dose: 5 ml Warfarin Sodium (Coumadin) 7.5 mg PO TuThSa@1400 [facility] Last Admin: 07/05/18 15:02 Dose: 7.5 mg Warfarin Sodium (Coumadin) 5 mg PO SuMoWeFr@1400 [facility] Last Admin: 07/04/18 14:34 Dose: 5 mg Wound Care/Dressing Products (Duoderm Cgf) 1 each TOP ASDIRECTED PRN PRN Reason: bedsore Last Admin: 07/07/18 06:38 Dose: 1 each - Free Text/Narrative Note: I have examined the patient. I have discussed findings and treatment plan with the resident. I agree with the assessment and plan in the following resident's note.
--- NOTE | 2018-07-08 09:56 | CR ---
EXAM DATE: 07/04/18 PATIENT'S AGE: 67 Patient: MERA WILEY Facility: [place], [place] Site . Site : 1950 Study: XRay Chest [id number] 8:40:06 PM Ordering Physician: Becki Brink Final Report: INDICATION: Dyspnea TECHNIQUE: Chest 1 view. COMPARISON: None FINDINGS: Cardiovascular and mediastinum: Heart size and vasculature are normal in caliber and appearance. Mediastinum is within normal limits. Left-sided port catheter tip terminates in the SVC. Lungs and pleural space: Lungs are clear. No sign of infiltrate or mass. No sign of pleural effusion. No pneumothorax. Bones and soft tissues: Remote right 6th rib fracture IMPRESSION: Unremarkable chest. No acute pulmonary or cardiac abnormalities. Dictated by Gabo Louis MD @ 07/07/2018 8:58:57 PM Dictated by: Gabo Louis MD @ 07/07/2018 20:59:03 (Electronic Signature) Report Signed by Proxy. GULSHAN
[2018-07-08 11:35] VITALS: BP 122/77
[2018-07-08] MEDS: Albuterol 8 GM Inhaler INH PRN (11:46)
== END 2018-07-08 12:55 | DRG 947 ==
LOC: MW.ED 10:28 → MW.MS 12:25 → OBSVTOIN 07-04 09:17
PROVIDERS: ADMIT Internal Medicine; ATTEND Internal Medicine
PROC: 30233N1 Transfusion of Nonautologous Red Blood Cells into Peripheral Vein, Percutaneous Approach (ICD-10-PCS; principal; 2018-07-05)
DX: R53.1 Weakness (principal); E43 Unspecified severe protein-calorie malnutrition; A04.72 Enterocolitis due to Clostridium difficile, not specified as recurrent; D68.9 Coagulation defect, unspecified; C34.90 Malignant neoplasm of unspecified part of unspecified bronchus or lung; C79.31 Secondary malignant neoplasm of brain; C79.00 Secondary malignant neoplasm of unspecified kidney and renal pelvis; D64.9 Anemia, unspecified; R79.89 Other specified abnormal findings of blood chemistry; D69.6 Thrombocytopenia, unspecified; E87.6 Hypokalemia; H54.7 Unspecified visual loss; K21.9 Gastro-esophageal reflux disease without esophagitis; E83.42 Hypomagnesemia; N18.3 Chronic kidney disease, stage 3 (moderate); E03.9 Hypothyroidism, unspecified; I48.91 Unspecified atrial fibrillation; Z68.24 Body mass index [BMI] 24.0-24.9, adult; Z86.711 Personal history of pulmonary embolism; Z86.718 Personal history of other venous thrombosis and embolism; Z79.899 Other long term (current) drug therapy; Z79.01 Long term (current) use of anticoagulants
CPT/HCPCS: 36415; 51701; 70450; 71045; 80053 ×2; 81001; 82962; 83735; 84443; 84484 ×3; 85025 ×2; 85610 ×2; 85730; 93005; 94640; 96360; 96361; 99285; A9270 ×8; J3475; J7040 ×3; 36430; 80048; 80076; 82272; 82728; 83036; 83550; 83615; 85014; 85018; 86850; 86900; 86901; 86920; 86921; 86922; 86945; 87046; 87324; 87899; 99284; J1642; J1815-GY; J3480; J7620-GY; P9034